=== PATIENT | female | born 1990 | race Caucasian/White ===

== ENCOUNTER → 2016-11-09 | Outpatient (CLI) | payer OTHER ==
[~2016-11-09] MED LIST: BENZ56AE TP; Ibuprofen PO; PEDI1TAB36 PO; RANI75TA30 PO
--- NOTE | 2016-11-09 12:44 | Diagnostic Imaging Report ---
PROCEDURE: US Gallbladder. TECHNIQUE: Multiple real-time grayscale images were obtained over the right upper quadrant in various projections. INDICATION: Epigastric pain. FINDINGS: Visualized portions of the pancreas appear unremarkable. The liver demonstrates homogeneous echotexture with no focal lesion. Hepatopetal flow in the portal vein is seen. The gallbladder demonstrates no stones or wall thickening. The CBD is obscured. No intrahepatic biliary dilatation is identified. The right kidney is 12.1 cm in length with no hydronephrosis or focal lesion. No fluid collection in the upper right abdomen. Sonographic Ruff sign is reportedly negative. IMPRESSION: Unremarkable exam. Dictated by: Dictated on workstation # [id number]
== END ==
LOC: RAD 09:23
PROVIDERS: ATTEND Family Medicine
DX: R10.13 Epigastric pain (principal)
CPT/HCPCS: 76705

== ENCOUNTER 2017-08-04 12:04 | Emergency (ER) | payer OTHER ==
[~2017-08-04] VITALS: Ht 157.5 cm; Wt 77.2 kg
--- OUTSIDE RECORDS SUMMARY | 2017-08-04 12:10 | XMS REPORT ---
Author STANTON Padilla [facility] eClinicalWorks Address Unknown Phone Unavailable Care Team Providers Care Piece Work Checker Name Role Phone STANTON JUAREZ CP Unavailable Allergies, Adverse Reactions, Alerts Substance Reaction Event Type Amoxicillin Info Not Available Drug Allergy Problems Problem Type Condition Code Onset Dates Condition Status Assessment Major depressive disorder with single episode, remission status unspecified F32.9 Active Assessment Anxiety, generalized F41.1 Active Problem Major depression single episode, 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 Active Problem Encounter for surveillance of contraceptive pills Z30.41 Active Problem Anxiety, generalized F41.1 Active Problem Allergic rhinitis, unspecified allergic rhinitis type J30.9 Active Problem Gastroesophageal reflux disease, esophagitis presence not specified K21.9 Active Problem Epigastric pain R10.13 Active Problem Major depressive disorder with single episode, remission status unspecified F32.9 Active Medications No Known Medications Procedures Procedure Coding System Code Date Psychotherapy, patient &/family, 30 minutes, established patient CPT-4 75162 Sep 21, 2016 Results No Known Results Summary Purpose [employer] Works[employer] Submission
--- OUTSIDE RECORDS SUMMARY | 2017-08-04 12:10 | XMS REPORT ---
Author Author NAKITA RUBIN Organization eClinicalWorks Address Unknown Phone Unavailable Care Team Providers Care Biochemist Name Role Phone NAKITA RUBIN CP Unavailable Allergies, Adverse Reactions, Alerts Substance Reaction Event Type Amoxicillin Info Not Available Drug Allergy Problems Problem Type Condition Code Onset Dates Condition Status Problem Gastroesophageal reflux disease, esophagitis presence not specified K21.9 Active Assessment Encounter for dental examination Z01.20 Active Problem Allergic rhinitis, unspecified allergic rhinitis type J30.9 Active Assessment Dental examination Z01.20 Active Medications No Known Medications Procedures Procedure Coding System Code Date RESIN COMPOS - 3 SURFACES POSTERIOR CPT-4 D2393 Oct 03, 2015 Vital Signs Date/Time: Oct 03, 2015 Blood Pressure Diastolic 80 mmHg Blood Pressure Systolic 116 mmHg Height 61 in Results No Known Results Summary Purpose eClinicalWorks Submission
--- OUTSIDE RECORDS SUMMARY | 2017-08-04 12:10 | XMS REPORT ---
Author YUDITH Álvarez [facility] eClinicalWorks Address Unknown Phone Unavailable Care Team Providers Care Theater Manager Name Role Phone YUDITH GARZA CP Unavailable Allergies, Adverse Reactions, Alerts Substance Reaction Event Type Amoxicillin Info Not Available Drug Allergy Problems Problem Type Condition Code Onset Dates Condition Status Assessment Upper respiratory tract infection, unspecified type J06.9 Active Problem Major depression single episode, 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 Active Problem Encounter for surveillance of contraceptive pills Z30.41 Active Problem Anxiety, generalized F41.1 Active Problem Allergic rhinitis, unspecified allergic rhinitis type J30.9 Active Problem Gastroesophageal reflux disease, esophagitis presence not specified K21.9 Active Problem Epigastric pain R10.13 Active Problem Major depressive disorder with single episode, remission status unspecified F32.9 Active Medications Medication Code System Code Instructions Start Date End Date Status Dosage Claritin [facility] [address]-38 10 MG Orally Once a day 1 tablet Promethazine-Codeine [facility] [address]-95 6.25-10 MG/5ML Orally every 4 hrs, prn cough Aug 25, 2016 1-2 tsp Procedures Procedure Coding System Code Date Office Visit, Est Pt., Level 2 CPT-4 84576 Aug 25, 2016 Vital Signs Date/Time: Aug 25, 2016 Cardiac Monitoring Heart Rate 80 bpm Weight 174 lbs Height 61 in BMI 32.87 Index Blood Pressure Diastolic 86 mmHg Blood Pressure Systolic 124 mmHg Results No Known Results Summary Purpose eClinicalWorks Submission
--- OUTSIDE RECORDS SUMMARY | 2017-08-04 12:10 | XMS REPORT ---
Author Author ANA PAULA NOAH Organization [facility] Address [address] [place] [address] Care Team Providers Care Parachute Inspector Name Role Phone VISHNU GOSSHANY Unavailable PROBLEMS Type Condition ICD9-CM Code [id number] Code Onset Dates Condition Status SNOMED Code Problem Gastroesophageal reflux disease, esophagitis presence not specified K21.9 Active 629574629 Problem Adjustment disorder with disturbance of emotion F43.29 Active 12582722 Problem BMI 32.0-32.9,adult Z68.32 Active 592968029 Problem Epigastric pain R10.13 Active 52796721 Problem Allergic rhinitis, unspecified allergic rhinitis type J30.9 Active 20394630 Problem Anxiety, generalized F41.1 Active 30891212 Problem Major depression single episode, 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 Active 79796706 ALLERGIES Unknown Allergies SOCIAL HISTORY No smoking Hx information available PLAN OF CARE Activity Details Follow Up Next avail repower counseling Reason: VITAL SIGNS Height 61 in 2016-10-08 Weight 175.0 lbs 2016-10-08 Temperature 98.8 degrees Fahrenheit 2016-10-08 Heart Rate 84 bpm 2016-10-08 Respiratory Rate 18 2016-10-08 BMI 33.06 kg/m2 2016-10-08 Blood pressure systolic 112 mmHg 2016-10-08 Blood pressure diastolic 78 mmHg 2016-10-08 MEDICATIONS Unknown Medications RESULTS Name Result Date Reference Range GLUCOSE, SERUM 2016-10-08 Glucose, Serum 83 65-99 LIPID PANEL 2016-10-08 Cholesterol, Total 245 100-199 Triglycerides 245 0-149 HDL Cholesterol 44 >39 VLDL Cholesterol Hugo 49 5-40 LDL Cholesterol Calc 152 0-99 Comment: PROCEDURES Procedure Date Ordered Related Diagnosis Body Site LIPID PANEL Oct 08, 2016 ASSAY, GLUCOSE, BLOOD QUANT Oct 08, 2016 No Charge Oct 08, 2016 IMMUNIZATIONS No Known Immunizations
--- OUTSIDE RECORDS SUMMARY | 2017-08-04 12:10 | XMS REPORT ---
Author Author NOAH GOSS Organization [facility] Address [address] [place] [address] Care Team Providers Care Packaging Assembler Name Role Phone NOAH GOSS Unavailable PROBLEMS Type Condition ICD9-CM Code [id number] Code Onset Dates Condition Status SNOMED Code Problem Allergic rhinitis, unspecified allergic rhinitis type J30.9 Active 21129385 Problem Gastroesophageal reflux disease, esophagitis presence not specified K21.9 Active 691477632 Problem Reflux gastritis K29.60 Active 44357564 Problem Adjustment disorder with disturbance of emotion F43.29 Active 39331967 Problem Major depression single episode, 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 Active 18479317 Problem Epigastric pain R10.13 Active 52708728 Problem BMI 32.0-32.9,adult Z68.32 Active 085414686 Problem Anxiety, generalized F41.1 Active 99586269 ALLERGIES Substance Reaction Event Type Date Status Amoxicillin Unknown Drug Allergy Oct, Active SOCIAL HISTORY No smoking Hx information available PLAN OF CARE Activity Details Follow Up 2 Weeks Reason:wart cryotherapy VITAL SIGNS Height 61 in 2016-11-19 Weight 175 lbs 2016-11-19 Temperature 98.0 degrees Fahrenheit 2016-11-19 Heart Rate 90 bpm 2016-11-19 Respiratory Rate 20 2016-11-19 BMI 33.06 kg/m2 2016-11-19 Blood pressure systolic 110 mmHg 2016-11-19 Blood pressure diastolic 64 mmHg 2016-11-19 MEDICATIONS Medication Instructions Dosage Frequency Start Date End Date Duration Status Ortho-Cyclen (28) 0.25-35 MG-MCG Orally Once a day 1 tablet 24h Apr, 28 day(s) Active Omeprazole 40 mg Orally Once a day 1 capsule 24h Mar, 30 day(s ) Active Claritin 10 MG Orally Once a day 1 tablet 24h Active RESULTS No Results PROCEDURES Procedure Date Ordered Related Diagnosis Body Site WART DESTRUCT 11-07 (CRYO) 2016-11-19 N/A DESTRUCT LESION, 1-14 Nov 19, 2016 IMMUNIZATIONS No Known Immunizations
--- OUTSIDE RECORDS SUMMARY | 2017-08-04 12:10 | XMS REPORT ---
Author STANTON Padilla [facility] eClinicalWorks Address Unknown Phone Unavailable Care Team Providers Care Solution Strategist Name Role Phone STANTON JUAREZ CP Unavailable Allergies, Adverse Reactions, Alerts Substance Reaction Event Type Amoxicillin Info Not Available Drug Allergy Problems Problem Type Condition Code Onset Dates Condition Status Problem Encounter for surveillance of contraceptive pills Z30.41 Active Problem Epigastric pain R10.13 Active Problem Major depression single episode, 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 Active Problem Gastroesophageal reflux disease, esophagitis presence not specified K21.9 Active Assessment Major depression single episode, 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 Active Problem Major depressive disorder with single episode, remission status unspecified F32.9 Active Problem Allergic rhinitis, unspecified allergic rhinitis type J30.9 Active Medications No Known Medications Procedures Procedure Coding System Code Date Psychotherapy, patient &/family, 30 minutes, established patient CPT-4 68982 Aug 11, 2016 Results No Known Results Summary Purpose [employer] Submission
--- OUTSIDE RECORDS SUMMARY | 2017-08-04 12:10 | XMS REPORT ---
Author Author NOAH GOSS Organization [facility] Address [address] [place] [address] Care Team Providers Care Review Consultant Name Role Phone NOAH GOSS Unavailable PROBLEMS Type Condition ICD9-CM Code NKR08-FP Code Onset Dates Condition Status SNOMED Code Problem Allergic rhinitis, unspecified allergic rhinitis type J30.9 Active 31805991 Problem Gastroesophageal reflux disease, esophagitis presence not specified K21.9 Active 474886854 Problem Reflux gastritis K29.60 Active 08204992 Problem Adjustment disorder with disturbance of emotion F43.29 Active 52655996 Problem Major depression single episode, 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 Active 96824529 Problem Epigastric pain R10.13 Active 53386317 Problem BMI 32.0-32.9,adult Z68.32 Active 182833549 Problem Anxiety, generalized F41.1 Active 47226996 ALLERGIES No Information SOCIAL HISTORY Never Assessed PLAN OF CARE VITAL SIGNS Height 61 in 2016-12-15 Weight 174.4 lbs 2016-12-15 BMI 32.95 kg/m2 2016-12-15 MEDICATIONS Unknown Medications RESULTS No Results PROCEDURES No Known procedures IMMUNIZATIONS No Known Immunizations MEDICAL (GENERAL) HISTORY Type Description Date Medical History Allergic Rhinitis Medical History Hospitalization History childbirth only
--- OUTSIDE RECORDS SUMMARY | 2017-08-04 12:10 | XMS REPORT ---
Author Author NOAH GOSS [facility] eClinicalWorks Address Unknown Phone Unavailable Care Team Providers Care Healthcare Architect Name Role Phone NOAH GOSS Unavailable Allergies No Known Allergies Problems Problem Type Condition Code Onset Dates Condition Status Problem Gastroesophageal reflux disease, esophagitis presence not specified K21.9 Active Problem Allergic rhinitis, unspecified allergic rhinitis type J30.9 Active Medications No Known Medications Results No Known Results Summary Purpose eClinicalWorks Submission
--- OUTSIDE RECORDS SUMMARY | 2017-08-04 12:10 | XMS REPORT ---
Author Author STANTON JUAREZ [facility] Address [address] [place] [address] Care Team Providers Care Online Trader Name Role Phone STANTON JUAREZ Unavailable PROBLEMS Type Condition ICD9-CM Code CWJ32-TV Code Onset Dates Condition Status SNOMED Code Problem Allergic rhinitis, unspecified allergic rhinitis type J30.9 Active 85968725 Problem Gastroesophageal reflux disease, esophagitis presence not specified K21.9 Active 810387822 Problem Reflux gastritis K29.60 Active 89595346 Problem Adjustment disorder with disturbance of emotion F43.29 Active 60853886 Problem Major depression single episode, 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 Active 46705757 Problem Epigastric pain R10.13 Active 03679516 Problem BMI 32.0-32.9,adult Z68.32 Active 909942925 Problem Anxiety, generalized F41.1 Active 83685038 ALLERGIES Substance Reaction Event Type Date Status Amoxicillin Unknown Drug Allergy Oct, Active SOCIAL HISTORY No smoking Hx information available PLAN OF CARE Activity Details Follow Up 2 Weeks Reason:depression, anxiety VITAL SIGNS MEDICATIONS Unknown Medications RESULTS No Results PROCEDURES Procedure Date Ordered Related Diagnosis Body Site Psychotherapy, patient &/family, 30 minutes, established patient Nov 02, 2016 IMMUNIZATIONS No Known Immunizations
--- OUTSIDE RECORDS SUMMARY | 2017-08-04 12:10 | XMS REPORT ---
Author STANTON Padilla [facility] eClinicalWorks Address Unknown Phone Unavailable Care Team Providers Care Film Masker Name Role Phone STANTON JUAREZ CP Unavailable Allergies No Known Allergies Problems Problem Type Condition Code Onset Dates Condition Status Assessment Major depressive disorder with single episode, remission status unspecified F32.9 Active Problem Gastroesophageal reflux disease with esophagitis K21.0 Active Problem Epigastric pain R10.13 Active Problem Encounter for surveillance of contraceptive pills Z30.41 Active Problem Allergic rhinitis, unspecified allergic rhinitis type J30.9 Active Problem Gastroesophageal reflux disease, esophagitis presence not specified K21.9 Active Problem Major depressive disorder with single episode, remission status unspecified F32.9 Active Problem Acute cystitis without hematuria N30.00 Active Medications No Known Medications Results No Known Results Summary Purpose eClinicalWorks Submission
--- OUTSIDE RECORDS SUMMARY | 2017-08-04 12:10 | XMS REPORT ---
Author STANTON Padilla [facility] eClinicalWorks Address Unknown Phone Unavailable Care Team Providers Care Confidential Secretary Name Role Phone STANTON JUAREZ CP Unavailable Allergies, Adverse Reactions, Alerts Substance Reaction Event Type Amoxicillin Info Not Available Drug Allergy Problems Problem Type Condition Code Onset Dates Condition Status Assessment Major depressive disorder with single episode, remission status unspecified F32.9 Active Assessment Anxiety, generalized F41.1 Active Assessment Dysthymic F34.1 Active Problem Gastroesophageal reflux disease with esophagitis [...] hematuria N30.00 Active Medications No Known Medications Procedures Procedure Coding System Code Date Psychotherapy, patient &/family, 30 minutes, established patient CPT-4 25005 Jun 19, 2016 Results No Known Results Summary Purpose eClinicalWorks Submission
--- OUTSIDE RECORDS SUMMARY | 2017-08-04 12:10 | XMS REPORT ---
Author Author STANTON JUAREZ [facility] Address [address] [place] [address] Care Team Providers Care Oleo Hasher And Renderer Name Role Phone STANTON JUAREZ Unavailable PROBLEMS Type Condition ICD9-CM Code [id number] Code Onset Dates Condition Status SNOMED Code Problem Gastroesophageal reflux disease, esophagitis presence not specified K21.9 Active 851971873 Assessment Anxiety, generalized F41.1 Sep, Active 97567440 Problem Anxiety, generalized F41.1 Active 98345738 Problem Major depression single episode, 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 Active 24133322 Problem Major depressive disorder with single episode, remission status unspecified F32.9 Active 68029967 Problem Allergic rhinitis, unspecified allergic rhinitis type J30.9 Active 73244533 Problem Encounter for surveillance of contraceptive pills Z30.41 Active 533920288 Problem Epigastric pain R10.13 Active 01654700 ALLERGIES Substance Reaction Event Type Date Status Amoxicillin Unknown Drug Allergy Sep, Active SOCIAL HISTORY No smoking Hx information available PLAN OF CARE VITAL SIGNS MEDICATIONS Unknown Medications RESULTS No Results PROCEDURES Procedure Date Ordered Related Diagnosis Body Site Psychotherapy, patient &/family, 30 minutes, established patient Sep 29, 2016 IMMUNIZATIONS No Known Immunizations
--- OUTSIDE RECORDS SUMMARY | 2017-08-04 12:11 | XMS REPORT ---
Author Author NOAH GOSS Organization [facility] Address [address] [place] [address] Care Team Providers Care Medical Billing Representative Name Role Phone ANA PAULAVISHNU PATTONHANY Unavailable PROBLEMS Type Condition ICD9-CM Code TOS93-SF Code Onset Dates Condition Status SNOMED Code Problem Allergic rhinitis, unspecified allergic rhinitis type J30.9 Active 72891804 Problem Gastroesophageal reflux disease, esophagitis presence not specified K21.9 Active 104891000 Problem Reflux gastritis K29.60 Active 89260101 Problem Adjustment disorder with disturbance of emotion F43.29 Active 28045316 Problem Major depression single episode, 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 Active 04257795 Problem Epigastric pain R10.13 Active 18850954 Problem BMI 32.0-32.9,adult Z68.32 Active 008345516 Problem Anxiety, generalized F41.1 Active 96943704 ALLERGIES Substance Reaction Event Type Date Status Amoxicillin Unknown Drug Allergy Nov, Active SOCIAL HISTORY Never Assessed PLAN OF CARE Activity Details Follow Up prn Reason: VITAL SIGNS Height 61 in 2016-12-22 Weight 174.1 lbs 2016-12-22 Temperature 98.0 degrees Fahrenheit 2016-12-22 Heart Rate 88 bpm 2016-12-22 Respiratory Rate 20 2016-12-22 BMI 32.89 kg/m2 2016-12-22 Blood pressure systolic 119 mmHg 2016-12-22 Blood pressure diastolic 82 mmHg 2016-12-22 MEDICATIONS Medication Instructions Dosage Frequency Start Date End Date Duration Status Claritin 10 MG Orally Once a day 1 tablet 24h Active RESULTS No Results PROCEDURES Procedure Date Ordered Result Body Site WART DESTRUCT -14 (CRYO) 2016-12-22 N/A DESTRUCT LESION, 1-14 Dec 22, 2016 IMMUNIZATIONS No Known Immunizations MEDICAL (GENERAL) HISTORY Type Description Date Medical History Allergic Rhinitis Medical History Hospitalization History childbirth only
--- OUTSIDE RECORDS SUMMARY | 2017-08-04 12:11 | XMS REPORT ---
Author Author STANTON JUAREZ [facility] Address [address] [place] [address] Care Team Providers Care Industrial Laborer Name Role Phone STANTON JUAREZ Unavailable PROBLEMS Type Condition ICD9-CM Code QXM60-CX Code Onset Dates Condition Status SNOMED Code Assessment Adjustment disorder with disturbance of emotion F43.29 Jun Active 17475225 Problem Encounter for surveillance of contraceptive pills Z30.41 Active 169638923 Problem Epigastric pain R10.13 Active 53201784 Problem Gastroesophageal reflux disease, esophagitis presence not specified K21.9 Active 369776577 Assessment Major depressive disorder with single episode, remission status unspecified F32.9 Jun, Active 00403872 Problem Major depressive disorder with single episode, remission status unspecified F32.9 Active 45409441 Problem Allergic rhinitis, unspecified allergic rhinitis type J30.9 Active 12330610 ALLERGIES Substance Reaction Event Type Date Status Amoxicillin Unknown Drug Allergy Jun, Active SOCIAL HISTORY No smoking Hx information available PLAN OF CARE VITAL SIGNS MEDICATIONS Unknown Medications RESULTS No Results PROCEDURES Procedure Date Ordered Related Diagnosis Body Site Psychotherapy, patient &/family, 30 minutes, established patient Jul 10, 2016 IMMUNIZATIONS No Known Immunizations
--- OUTSIDE RECORDS SUMMARY | 2017-08-04 12:11 | XMS REPORT ---
Author Author MANDA RUIZ Organization [facility] Address [address] [place] [address] Care Team Providers Care Peoplesoft Hcm Developer Name Role Phone MANDA RUIZ Unavailable PROBLEMS Type Condition ICD9-CM Code VUY36-FA Code Onset Dates Condition Status SNOMED Code Assessment Nasal congestion R09.81 Sep, Active 81022334 Problem Gastroesophageal reflux disease, esophagitis presence not specified K21.9 Active 994855441 Assessment Left ear pain H92.02 Sep, Active 8468545366533361 Problem Anxiety, generalized F41.1 Active 10688571 Problem Major depression single episode, 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 Active 75320092 Problem Major depressive disorder with single episode, remission status unspecified F32.9 Active 04425982 Problem Allergic rhinitis, unspecified allergic rhinitis type J30.9 Active 18085319 Problem Encounter for surveillance of contraceptive pills Z30.41 Active 333300753 Problem Epigastric pain R10.13 Active 76562561 ALLERGIES Substance Reaction Event Type Date Status Amoxicillin Unknown Drug Allergy Sep, Active SOCIAL HISTORY No smoking Hx information available PLAN OF CARE VITAL SIGNS Height 61 in 2016-10-06 Weight 179 lbs 2016-10-06 Heart Rate 80 bpm 2016-10-06 Respiratory Rate 16 2016-10-06 BMI 33.82 kg/m2 2016-10-06 Blood pressure systolic 118 mmHg 2016-10-06 Blood pressure diastolic 80 mmHg 2016-10-06 MEDICATIONS Medication Instructions Dosage Frequency Start Date End Date Duration Status Ortho-Cyclen (28) 0.25-35 MG-MCG Orally Once a day 1 tablet 24h 20 Apr, 2016 28 day(s) Active RESULTS No Results PROCEDURES Procedure Date Ordered Related Diagnosis Body Site Office Visit, Est Pt., Level 3 Oct 06, 2016 IMMUNIZATIONS No Known Immunizations
--- OUTSIDE RECORDS SUMMARY | 2017-08-04 12:11 | XMS REPORT ---
Author STANTON Padilla [facility] eClinicalWorks Address Unknown Phone Unavailable Care Team Providers Care Civil Division Deputy Sheriff Name Role Phone STANTON JUAREZ CP Unavailable Allergies No Known Allergies Problems Problem Type Condition Code Onset Dates Condition Status Assessment Major depression single episode, 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 Active Problem Major depression single episode, in [...] patient &/family, 30 minutes, established patient CPT-4 12671 Sep 10, 2016 Results No Known Results Summary Purpose eClinicalWorks Submission
--- OUTSIDE RECORDS SUMMARY | 2017-08-04 12:11 | XMS REPORT ---
Author STANTON Padilla [facility] eClinicalWorks Address Unknown Phone Unavailable Care Team Providers Care Industrial Commercial Groundskeeper Name Role Phone STANTON JUAREZ CP Unavailable Allergies, Adverse Reactions, Alerts Substance Reaction Event Type Amoxicillin Info Not Available Drug Allergy Problems Problem Type Condition Code Onset Dates Condition Status Problem Epigastric pain R10.13 Active Problem Major depressive disorder with single episode, remission status unspecified F32.9 Active Problem Encounter for surveillance of contraceptive pills Z30.41 Active Assessment Major depressive disorder with single episode, remission status unspecified F32.9 Active Problem Allergic rhinitis, unspecified allergic rhinitis type J30.9 Active Problem Gastroesophageal reflux disease, esophagitis presence not specified K21.9 Active Medications No Known Medications Procedures Procedure Coding System Code Date Psychotherapy, patient &/family, 30 minutes, established patient CPT-4 32552 Jul 28, 2016 Results No Known Results Summary Purpose eClinicalWorks Submission
--- OUTSIDE RECORDS SUMMARY | 2017-08-04 12:11 | XMS REPORT ---
Author BRENDA Guzman [facility] eClinicalWorks Address Unknown Phone Unavailable Care Team Providers Care Sheet Metal Shop Foreman Name Role Phone BRENDA DOTSON CP Unavailable Allergies, Adverse Reactions, Alerts Substance Reaction Event Type Amoxicillin Info Not Available Drug Allergy Problems Problem Type Condition Code Onset Dates Condition Status Assessment Epigastric pain R10.13 Active Assessment Encounter for surveillance of contraceptive pills Z30.41 Active Assessment Gastroesophageal reflux disease with esophagitis K21.0 Active Assessment Acute cystitis without hematuria N30.00 Active Assessment Major depressive disorder with single [...] Acute cystitis without hematuria N30.00 Active Medications Medication Code System Code Instructions Start Date End Date Status Dosage Claritin [facility] [address]-77 10 MG Orally Once a day 1 tablet Macrobid [facility] [address]-35 100 MG Orally every 12 hrs May 13, 2016 May 20, 2016 1 capsule with food Omeprazole [facility] [address]-13 40 mg Orally Once a day March 31, 2016 1 capsule Ortho-Cyclen (28) [facility] [address]-78 0.25-35 MG-MCG Orally Once a day May 13, 2016 1 tablet Procedures Procedure Coding System Code Date COMPLETE CBC W/AUTO DIFF WBC CPT-4 13637 May 13, 2016 COMPREHEN METABOLIC PANEL CPT-4 15437 May 13, 2016 URINE TEST CPT-4 64751 May 13, 2016 URINALYSIS, AUTO, W/O SCOPE CPT-4 19723 May 13, 2016 IMMUNOASSAY,INFECTIOUS AGENT CPT-4 81446 May 13, 2016 VENIPUNCT, ROUTINE* CPT-4 09075 May 13, 2016 Office Visit, Est Pt., Level 4 CPT-4 05420 May 13, 2016 Vital Signs Date/Time: May 13, 2016 Cardiac Monitoring Heart Rate 86 bpm Weight 169.4 lbs Height 61 in Blood Pressure Diastolic 76 mmHg Blood Pressure Systolic 110 mmHg Results No Known Results Summary Purpose eClinicalWorks Submission
--- OUTSIDE RECORDS SUMMARY | 2017-08-04 12:11 | XMS REPORT ---
Author Author STANTON JUAREZ [facility] Address [address] [place] [address] Care Team Providers Care Ammonia Distiller Name Role Phone STANTON JUAREZ Unavailable PROBLEMS Type Condition ICD9-CM Code [id number] Code Onset Dates Condition Status SNOMED Code Problem Allergic rhinitis, unspecified allergic rhinitis type J30.9 Active 01660002 Problem Gastroesophageal reflux disease, esophagitis presence not specified K21.9 Active 273109775 Problem Reflux gastritis K29.60 Active 89607750 Problem Adjustment disorder with disturbance of emotion F43.29 Active 23857247 Problem Major depression single episode, 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 Active 40492955 Problem Epigastric pain R10.13 Active 36716367 Problem BMI 32.0-32.9,adult Z68.32 Active 115509466 Problem Anxiety, generalized F41.1 Active 51823480 ALLERGIES Substance Reaction Event Type Date Status Amoxicillin Unknown Drug Allergy Oct, Active SOCIAL HISTORY No smoking Hx information available PLAN OF CARE Activity Details Follow Up 2 Weeks Reason:Depression VITAL SIGNS MEDICATIONS Unknown Medications RESULTS No Results PROCEDURES Procedure Date Ordered Related Diagnosis Body Site Psychotherapy, patient &/family, 30 minutes, established patient Nov 16, 2016 IMMUNIZATIONS No Known Immunizations
--- OUTSIDE RECORDS SUMMARY | 2017-08-04 12:11 | XMS REPORT ---
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 Assessment Dysuria 788.1 Active Medications Medication Code System Code Instructions Start Date End Date Status Dosage Bactrim DS [facility] [address]-17 800-160 MG Orally 2 times a day Jul 08, 2015 Jul 13, 2015 1 tablet AZO Cranberry [facility] 554[address]-65948 250-30 MG Orally not defined Procedures Procedure Coding System Code Date Office Visit, Est Pt., Level 3 CPT-4 69228 Jul 08, 2015 Vital Signs Date/Time: Jul 08, 2015 Temperature 97.4 F Weight 176.1 lbs Height 61 in BMI 33.27 Index Blood Pressure Diastolic 80 mmHg Blood Pressure Systolic 122 mmHg Cardiac Monitoring Heart Rate 84 bpm Results No Known Results Summary Purpose eClinicalWorks Submission
--- OUTSIDE RECORDS SUMMARY | 2017-08-04 12:11 | XMS REPORT ---
Author Author NOAH GOSS Organization [facility] Address [address] [place] [address] Care Team Providers Care Button Reclaimer Name Role Phone NOAH GOSS Unavailable PROBLEMS Type Condition ICD9-CM Code [id number] Code Onset Dates Condition Status SNOMED Code Assessment Other viral warts B07.8 Jun, Active 70903468 Problem Encounter for surveillance of contraceptive pills Z30.41 Active 533822873 Problem Epigastric pain R10.13 Active 64959808 Problem Gastroesophageal reflux disease, esophagitis presence not specified K21.9 Active 154899056 Assessment Dermatofibroma of buttock D23.5 Jun, Active 33170367 Problem Major depressive disorder with single episode, remission status unspecified F32.9 Active 13586966 Problem Allergic rhinitis, unspecified allergic rhinitis type J30.9 Active 50528090 ALLERGIES Substance Reaction Event Type Date Status Amoxicillin Unknown Drug Allergy Jun, Active SOCIAL HISTORY No smoking Hx information available PLAN OF CARE VITAL SIGNS Height 61 in 2016-07-02 Weight 171.2 lbs 2016-07-02 Heart Rate 78 bpm 2016-07-02 Respiratory Rate 20 2016-07-02 BMI 32.34 kg/m2 2016-07-02 Blood pressure systolic 120 mmHg 2016-07-02 Blood pressure diastolic 76 mmHg 2016-07-02 MEDICATIONS Medication Instructions Dosage Frequency Start Date End Date Duration Status Naproxen 500 MG Orally every 12 hrs 1 tablet as needed 12h 07 Mar, 2016 Active Ortho-Cyclen (28) 0.25-35 MG-MCG Orally Once a day 1 tablet 24h 20 Apr, 2016 28 day(s) Active Claritin 10 MG Orally Once a day 1 tablet 24h Active Ortho-Cyclen (28) 0.25-35 MG-MCG Orally Once a day 1 tablet 24h 13 Jul, 2015 28 day(s) Active Doxycycline Hyclate 100 MG Orally Twice a day 1 tablet 12h Jun, Jun, 07 days Active Omeprazole 40 mg Orally Once a day 1 capsule 24h Mar, 30 day(s ) Active AZO Cranberry 250-30 MG Active Zantac 150 mg 1 tablet by Oral route 2 times per day PRN for heartburn May, Active Hydrocortisone 0.5 % Externally Twice a day 1 application to affected area 12h Active RESULTS Name Result Date Reference Range PDF Report 2016-07-02 PDF Report1 [facility] REPORT 2016-07-02 . . . . Comment: . . . . PROCEDURES Procedure Date Ordered Related Diagnosis Body Site BIOPSY OF SKIN LESION Jul 02, 2016 CRYOTHERAPY OF SKIN Jul 02, 2016 IMMUNIZATIONS No Known Immunizations
--- OUTSIDE RECORDS SUMMARY | 2017-08-04 12:11 | XMS REPORT ---
Author Author STANTON JUAREZ [facility] Address [address] [place] [address] Care Team Providers Care Log Buyer Name Role Phone STANTON JUAREZ Unavailable PROBLEMS Type Condition ICD9-CM Code [id number] Code Onset Dates Condition Status SNOMED Code Problem Gastroesophageal reflux disease, esophagitis presence not specified K21.9 Active 161266431 Problem Adjustment disorder with disturbance of emotion F43.29 Active 49230858 Problem BMI 32.0-32.9,adult Z68.32 Active 023169027 Problem Epigastric pain R10.13 Active 85002408 Problem Allergic rhinitis, unspecified allergic rhinitis type J30.9 Active 00276284 Problem Anxiety, generalized F41.1 Active 46864098 Problem Major depression single episode, 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 Active 52833844 ALLERGIES Unknown Allergies SOCIAL HISTORY No smoking Hx information available PLAN OF CARE Activity Details Follow Up 2 Weeks Reason:Depression, wt. loss VITAL SIGNS MEDICATIONS Unknown Medications RESULTS No Results PROCEDURES Procedure Date Ordered Related Diagnosis Body Site Psychotherapy, patient &/family, 45 minutes, established patient Oct 20, 2016 IMMUNIZATIONS No Known Immunizations
--- OUTSIDE RECORDS SUMMARY | 2017-08-04 12:11 | XMS REPORT ---
Author Author NOAH GOSS Organization [facility] Address [address] [place] [address] Care Team Providers Care Small Lot Operator Name Role Phone NOAH GOSS Unavailable PROBLEMS Type Condition ICD9-CM Code [id number] Code Onset Dates Condition Status SNOMED Code Problem Allergic rhinitis, unspecified allergic rhinitis type J30.9 Active 64273224 Problem Gastroesophageal reflux disease, esophagitis presence not specified K21.9 Active 152919169 Problem Reflux gastritis K29.60 Active 82319342 Problem Adjustment disorder with disturbance of emotion F43.29 Active 85000005 Problem Major depression single episode, 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 Active 19396199 Problem Epigastric pain R10.13 Active 96189118 Problem BMI 32.0-32.9,adult Z68.32 Active 961681934 Problem Anxiety, generalized F41.1 Active 58297571 ALLERGIES No Information SOCIAL HISTORY Never Assessed PLAN OF CARE VITAL SIGNS Height 61 in 2017-01-11 Weight 174.7 lbs 2017-01-11 BMI 33.01 kg/m2 2017-01-11 MEDICATIONS Unknown Medications RESULTS No Results PROCEDURES No Known procedures IMMUNIZATIONS No Known Immunizations MEDICAL (GENERAL) HISTORY Type Description Date Medical History Allergic Rhinitis Medical History Hospitalization History childbirth only
--- OUTSIDE RECORDS SUMMARY | 2017-08-04 12:11 | XMS REPORT ---
Author Author NOAH GOSS Organization [facility] Address [address] [place] [address] Care Team Providers Care Compressor Service Technician Name Role Phone NOAH GOSS Unavailable PROBLEMS Type Condition ICD9-CM Code [id number] Code Onset Dates Condition Status SNOMED Code Problem Allergic rhinitis, unspecified allergic rhinitis type J30.9 Active 52446617 Problem Gastroesophageal reflux disease, esophagitis presence not specified K21.9 Active 333016414 Problem Reflux gastritis K29.60 Active 40400812 Problem Adjustment disorder with disturbance of emotion F43.29 Active 32216398 Problem Major depression single episode, 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 Active 25202853 Problem Epigastric pain R10.13 Active 41959955 Problem BMI 32.0-32.9,adult Z68.32 Active 380322640 Problem Anxiety, generalized F41.1 Active 26651998 ALLERGIES No Information SOCIAL HISTORY Never Assessed PLAN OF CARE VITAL SIGNS Height 61 in 2016-12-28 Weight 175 lbs 2016-12-28 BMI 33.06 kg/m2 2016-12-28 MEDICATIONS Unknown Medications RESULTS No Results PROCEDURES No Known procedures IMMUNIZATIONS No Known Immunizations MEDICAL (GENERAL) HISTORY Type Description Date Medical History Allergic Rhinitis Medical History Hospitalization History childbirth only
--- OUTSIDE RECORDS SUMMARY | 2017-08-04 12:11 | XMS REPORT ---
Author Author STANTON JUAREZ [facility] Address [address] [place] [address] Care Team Providers Care Pick Up Driver Name Role Phone STANTON JUAREZ Unavailable PROBLEMS Type Condition ICD9-CM Code [id number] Code Onset Dates Condition Status SNOMED Code Problem Allergic rhinitis, unspecified allergic rhinitis type J30.9 Active 51497391 Problem Gastroesophageal reflux disease, esophagitis presence not specified K21.9 Active 198685228 Problem Reflux gastritis K29.60 Active 12404315 Problem Adjustment disorder with disturbance of emotion F43.29 Active 46424325 Problem Major depression single episode, 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 Active 24903402 Problem Epigastric pain R10.13 Active 80854157 Problem BMI 32.0-32.9,adult Z68.32 Active 925696642 Problem Anxiety, generalized F41.1 Active 06317936 ALLERGIES No Information SOCIAL HISTORY Never Assessed PLAN OF CARE Activity Details Follow Up 2 Weeks Reason:Depression VITAL SIGNS MEDICATIONS Unknown Medications RESULTS No Results PROCEDURES Procedure Date Ordered Result Body Site Psychotherapy, patient &/family, 30 minutes, established patient Dec 14, 2016 IMMUNIZATIONS No Known Immunizations MEDICAL (GENERAL) HISTORY Type Description Date Medical History Allergic Rhinitis Medical History Hospitalization History childbirth only
--- OUTSIDE RECORDS SUMMARY | 2017-08-04 12:11 | XMS REPORT ---
Author Author STANTON JUAREZ [facility] Address [address] [place] [address] Care Team Providers Care Pocket Stitcher Name Role Phone STANTON JUAREZ Unavailable PROBLEMS Type Condition ICD9-CM Code [id number] Code Onset Dates Condition Status SNOMED Code Problem Gastroesophageal reflux disease, esophagitis presence not specified K21.9 Active 008511543 Problem Adjustment disorder with disturbance of emotion F43.29 Active 88356384 Problem BMI 32.0-32.9,adult Z68.32 Active 663935792 Problem Epigastric pain R10.13 Active 14918698 Problem Allergic rhinitis, unspecified allergic rhinitis type J30.9 Active 84811782 Problem Anxiety, generalized F41.1 Active 91749713 Problem Major depression single episode, 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 Active 49262926 ALLERGIES Substance Reaction Event Type Date Status Amoxicillin Unknown Drug Allergy Oct, Active SOCIAL HISTORY No smoking Hx information available PLAN OF CARE Activity Details Follow Up 1 Week Reason:anxiety, depression VITAL SIGNS MEDICATIONS Unknown Medications RESULTS No Results PROCEDURES Procedure Date Ordered Related Diagnosis Body Site Psychotherapy, patient &/family, 30 minutes, established patient Oct 27, 2016 IMMUNIZATIONS No Known Immunizations
--- OUTSIDE RECORDS SUMMARY | 2017-08-04 12:11 | XMS REPORT ---
Author STANTON Padilla [facility] eClinicalWorks Address Unknown Phone Unavailable Care Team Providers Care Mapping Pilot Name Role Phone STANTON JUAREZ CP Unavailable Allergies, Adverse Reactions, Alerts Substance Reaction Event Type Amoxicillin Info Not Available Drug Allergy Problems Problem Type Condition Code Onset Dates Condition Status Assessment Major depressive disorder with single episode, remission status unspecified F32.9 Active Assessment Anxiety, generalized F41.1 Active Problem Gastroesophageal reflux disease with esophagitis [...] Coding System Code Date Psychotherapy, patient &/family, 45 minutes, established patient CPT-4 72893 May 22, 2016 Results No Known Results Summary Purpose [employer] Submission
--- OUTSIDE RECORDS SUMMARY | 2017-08-04 12:11 | XMS REPORT ---
Author Author NOAH GOSS Organization [facility] Address [address] [place] [address] Care Team Providers Care Baseball Player Name Role Phone NOAH GOSS Unavailable PROBLEMS Type Condition ICD9-CM Code [id number] Code Onset Dates Condition Status SNOMED Code Problem Gastroesophageal reflux disease, esophagitis presence not specified K21.9 Active 694149712 Problem Adjustment disorder with disturbance of emotion F43.29 Active 49447863 Problem BMI 32.0-32.9,adult Z68.32 Active 932459326 Problem Epigastric pain R10.13 Active 05331239 Problem Allergic rhinitis, unspecified allergic rhinitis type J30.9 Active 89189041 Problem Anxiety, generalized F41.1 Active 59311614 Problem Major depression single episode, 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 Active 21791250 ALLERGIES Unknown Allergies SOCIAL HISTORY No smoking Hx information available PLAN OF CARE VITAL SIGNS MEDICATIONS Unknown Medications RESULTS No Results PROCEDURES No Known procedures IMMUNIZATIONS No Known Immunizations
--- OUTSIDE RECORDS SUMMARY | 2017-08-04 12:11 | XMS REPORT ---
Author STANTON Padilla [facility] eClinicalWorks Address Unknown Phone Unavailable Care Team Providers Care Heel Stainer Name Role Phone STANTON JUAREZ CP Unavailable [...] patient &/family, 30 minutes, established patient CPT-4 92656 Jun 05, 2016 Results No Known Results Summary Purpose [employer] Submission
--- OUTSIDE RECORDS SUMMARY | 2017-08-04 12:12 | XMS REPORT ---
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
--- OUTSIDE RECORDS SUMMARY | 2017-08-04 12:12 | XMS REPORT ---
Author Author STANTON JUAREZ [facility] Address [address] [place] [address] Care Team Providers Care Storage Facility Rental Clerk Name Role Phone STANTON JUAREZ Unavailable PROBLEMS Type Condition ICD9-CM Code AZR25-NQ Code Onset Dates Condition Status SNOMED Code Problem Encounter for surveillance of contraceptive pills Z30.41 Active 342447029 Problem Epigastric pain R10.13 Active 83406780 Problem Gastroesophageal reflux disease, esophagitis presence not specified K21.9 Active 894910000 Assessment Major depressive disorder with single episode, remission status unspecified F32.9 Jun, Active 93571844 Problem Major depressive disorder with single episode, remission status unspecified F32.9 Active 12628129 Problem Allergic rhinitis, unspecified allergic rhinitis type J30.9 Active 06333214 ALLERGIES Substance Reaction Event Type Date Status Amoxicillin Unknown Drug Allergy Jun, Active SOCIAL HISTORY No smoking Hx information available PLAN OF CARE VITAL SIGNS MEDICATIONS Unknown Medications RESULTS No Results PROCEDURES Procedure Date Ordered Related Diagnosis Body Site Psychotherapy, patient &/family, 30 minutes, established patient Jul 03, 2016 IMMUNIZATIONS No Known Immunizations
--- OUTSIDE RECORDS SUMMARY | 2017-08-04 12:12 | XMS REPORT ---
Author Author AAN PAULA NOAH Organization [facility] Address [address] [place] [address] Care Team Providers Care Esol Teacher Name Role Phone VISHNU GOSSHANY Unavailable PROBLEMS Type Condition ICD9-CM Code [id number] Code Onset Dates Condition Status SNOMED Code Problem Encounter for surveillance of contraceptive pills Z30.41 Active 029849609 Problem Epigastric pain R10.13 Active 45829267 Problem Gastroesophageal reflux disease, esophagitis presence not specified K21.9 Active 239018685 Assessment Well woman exam (no gynecological exam) Z00.00 14 Jun, 2016 Active 128505379 Problem Major depressive disorder with single episode, remission status unspecified F32.9 Active 09124958 Problem Allergic rhinitis, unspecified allergic rhinitis type J30.9 Active 85340608 ALLERGIES Substance Reaction Event Type Date Status Amoxicillin Unknown Drug Allergy 14 Jun, 2016 Active SOCIAL HISTORY No smoking Hx information available PLAN OF CARE VITAL SIGNS Height 61 in 2016-07-08 Weight 171.8 lbs 2016-07-08 Heart Rate 77 bpm 2016-07-08 Respiratory Rate 18 2016-07-08 BMI 32.46 kg/m2 2016-07-08 Blood pressure systolic 124 mmHg 2016-07-08 Blood pressure diastolic 83 mmHg 2016-07-08 MEDICATIONS Medication Instructions Dosage Frequency Start Date End Date Duration Status Ortho-Cyclen (28) 0.25-35 MG-MCG Orally Once a day 1 tablet 24h 13 Jul, 2015 28 day(s) Active RESULTS Name Result Date Reference Range TEST, URINE (IN HOUSE) 2016-07-08 RESULTS Negative Lot # [id number] Control + Exp date 12/2017 PROCEDURES Procedure Date Ordered Related Diagnosis Body Site URINE TEST Jul 08, 2016 Preventive Care Est Pt. Age 18-39 Jul 08, 2016 IMMUNIZATIONS No Known Immunizations
--- OUTSIDE RECORDS SUMMARY | 2017-08-04 12:12 | XMS REPORT ---
Author Author STANTON JUAREZ [facility] Address [address] [place] [address] Care Team Providers Care Diplomatic Interpreter Name Role Phone STANTON JUAREZ Unavailable PROBLEMS Type Condition ICD9-CM Code LAB34-GY Code Onset Dates Condition Status SNOMED Code Problem Allergic rhinitis, unspecified allergic rhinitis type J30.9 Active 07980674 Problem Gastroesophageal reflux disease, esophagitis presence not specified K21.9 Active 968678386 Problem Reflux gastritis K29.60 Active 46237952 Problem Adjustment disorder with disturbance of emotion F43.29 Active 74678804 Problem Major depression single episode, 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 Active 04143685 Problem Epigastric pain R10.13 Active 71262437 Problem BMI 32.0-32.9,adult Z68.32 Active 730900846 Problem Anxiety, generalized F41.1 Active 95166266 ALLERGIES No Information SOCIAL HISTORY Never Assessed PLAN OF CARE Activity Details Follow Up 2 Weeks Reason:Adjustment disorder VITAL SIGNS MEDICATIONS Unknown Medications RESULTS No Results PROCEDURES Procedure Date Ordered Result Body Site Psychotherapy, patient &/family, 30 minutes, established patient December 28, 2016 IMMUNIZATIONS No Known Immunizations MEDICAL (GENERAL) HISTORY Type Description Date Medical History Allergic Rhinitis Medical History Hospitalization History childbirth only
--- OUTSIDE RECORDS SUMMARY | 2017-08-04 12:12 | XMS REPORT ---
Author Author NOAH GOSS Organization [facility] Address [address] [place] [address] Care Team Providers Care Tassel Maker Name Role Phone NOAH GOSS Unavailable PROBLEMS Type Condition ICD9-CM Code ZJT99-LQ Code Onset Dates Condition Status SNOMED Code Problem Gastroesophageal reflux disease, esophagitis presence not specified K21.9 Active 202051599 Problem Adjustment disorder with disturbance of emotion F43.29 Active 67123032 Problem BMI 32.0-32.9,adult Z68.32 Active 001005139 Problem Epigastric pain R10.13 Active 82965664 Problem Allergic rhinitis, unspecified allergic rhinitis type J30.9 Active 56737875 Problem Anxiety, generalized F41.1 Active 19937324 Problem Major depression single episode, 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 Active 22918676 ALLERGIES Unknown Allergies SOCIAL HISTORY No smoking Hx information available PLAN OF CARE VITAL SIGNS Height 61 in 2016-10-13 Weight 175.5 lbs 2016-10-13 BMI 33.16 kg/m2 2016-10-13 MEDICATIONS Unknown Medications RESULTS No Results PROCEDURES No Known procedures IMMUNIZATIONS No Known Immunizations
--- OUTSIDE RECORDS SUMMARY | 2017-08-04 12:12 | XMS REPORT ---
Author Author STANTON JUAREZ [facility] Address [address] [place] [address] Care Team Providers Care Packing Shed Supervisor Name Role Phone STANTON JUAREZ Unavailable PROBLEMS Type Condition ICD9-CM Code YER53-ZN Code Onset Dates Condition Status SNOMED Code Problem Gastroesophageal reflux disease, esophagitis presence not specified K21.9 Active 454615625 Assessment Major depressive disorder with single episode, remission status unspecified F32.9 Sep, Active 46754960 Problem Anxiety, generalized F41.1 Active 82998955 Problem Major depression single episode, 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 Active 17319701 Problem Major depressive disorder with single episode, remission status unspecified F32.9 Active 22881639 Problem Allergic rhinitis, unspecified allergic rhinitis type J30.9 Active 19728029 Problem Encounter for surveillance of contraceptive pills Z30.41 Active 123203125 Problem Epigastric pain R10.13 Active 86691742 ALLERGIES Substance Reaction Event Type Date Status Amoxicillin Unknown Drug Allergy Sep, Active SOCIAL HISTORY No smoking Hx information available PLAN OF CARE VITAL SIGNS MEDICATIONS Unknown Medications RESULTS No Results PROCEDURES Procedure Date Ordered Related Diagnosis Body Site Psychotherapy, patient &/family, 30 minutes, established patient Oct 06, 2016 IMMUNIZATIONS No Known Immunizations
--- OUTSIDE RECORDS SUMMARY | 2017-08-04 12:12 | XMS REPORT ---
Author Author NOAH GOSS Organization [facility] Address [address] [place] [address] Care Team Providers Care Mobile Practice Lead Name Role Phone NOAH GOSS Unavailable PROBLEMS Type Condition ICD9-CM Code [id number] Code Onset Dates Condition Status SNOMED Code Problem Gastroesophageal reflux disease, esophagitis presence not specified K21.9 Active 339260856 Problem Adjustment disorder with disturbance of emotion F43.29 Active 52700473 Problem BMI 32.0-32.9,adult Z68.32 Active 752700557 Problem Epigastric pain R10.13 Active 28709687 Problem Allergic rhinitis, unspecified allergic rhinitis type J30.9 Active 44969728 Problem Anxiety, generalized F41.1 Active 11601991 Problem Major depression single episode, 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 Active 11938785 ALLERGIES Unknown Allergies SOCIAL HISTORY No smoking Hx information available PLAN OF CARE VITAL SIGNS Height 61 in 2016-10-20 Weight 176.6 lbs 2016-10-20 BMI 33.36 kg/m2 2016-10-20 MEDICATIONS Unknown Medications RESULTS No Results PROCEDURES No Known procedures IMMUNIZATIONS No Known Immunizations
--- OUTSIDE RECORDS SUMMARY | 2017-08-04 12:12 | XMS REPORT ---
Author Author NOAH GOSS Organization [facility] Address [address] [place] [address] Care Team Providers Care Lacquer Sizer Name Role Phone NOAH GOSS Unavailable PROBLEMS Type Condition ICD9-CM Code [id number] Code Onset Dates Condition Status SNOMED Code Problem Gastroesophageal reflux disease, esophagitis presence not specified K21.9 Active 038570340 Problem Adjustment disorder with disturbance of emotion F43.29 Active 10828997 Problem BMI 32.0-32.9,adult Z68.32 Active 914580697 Problem Epigastric pain R10.13 Active 61507848 Problem Allergic rhinitis, unspecified allergic rhinitis type J30.9 Active 62463444 Problem Anxiety, generalized F41.1 Active 18157625 Problem Major depression single episode, 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 Active 62953153 ALLERGIES Unknown Allergies SOCIAL HISTORY No smoking Hx information available PLAN OF CARE VITAL SIGNS Height 61 in 2016-11-02 Weight 173.1 lbs 2016-11-02 BMI 32.70 kg/m2 2016-11-02 MEDICATIONS Unknown Medications RESULTS No Results PROCEDURES No Known procedures IMMUNIZATIONS No Known Immunizations
--- OUTSIDE RECORDS SUMMARY | 2017-08-04 12:12 | XMS REPORT ---
Author Author NOAH GOSS Organization [employer] Address Unknown Phone Unavailable Care Team Providers Care Laborer [employer] Name Role Phone NOAH GOSS CP Unavailable Allergies, Adverse Reactions, Alerts Substance Reaction Event Type Amoxicillin Info Not Available Drug Allergy Problems Problem Type Condition Code Onset Dates Condition Status Problem Gastroesophageal reflux disease, esophagitis presence not specified K21.9 Active Assessment Encounter for initial prescription of contraceptive pills Z30.011 Active Problem Allergic rhinitis, unspecified allergic rhinitis type J30.9 Active Assessment Gastroesophageal reflux disease, esophagitis presence not specified K21.9 Active Assessment Right upper quadrant abdominal pain R10.11 Active Medications Medication Code System Code Instructions Start Date End Date Status Dosage Ortho-Cyclen (28) [facility] [id number] 0.25-35 MG-MCG Orally Once a day Jul 1 tablet Procedures Procedure Coding System Code Date Office Visit, Est Pt., Level 3 CPT-4 49613 Aug 06, 2015 URINE TEST CPT-4 17423 Aug 06, 2015 Vital Signs Date/Time: Aug 06, 2015 Temperature 97.9 F Weight 173.5 lbs Height 61 in BMI 32.78 Index Blood Pressure Diastolic 70 mmHg Blood Pressure Systolic 112 mmHg Cardiac Monitoring Heart Rate 88 bpm Results Name Result Date Reference Range Unit Abnormality Flag TEST, URINE (IN HOUSE) Summary Purpose [employer] Submission
--- OUTSIDE RECORDS SUMMARY | 2017-08-04 12:12 | XMS REPORT ---
Author Author STANTON JUAREZ [facility] Address [address] [place] [address] Care Team Providers Care Log Sorter Name Role Phone STANTON JUAREZ Unavailable PROBLEMS Type Condition ICD9-CM Code [id number] Code Onset Dates Condition Status SNOMED Code Problem Allergic rhinitis, unspecified allergic rhinitis type J30.9 Active 47729948 Problem Gastroesophageal reflux disease, esophagitis presence not specified K21.9 Active 761972025 Problem Reflux gastritis K29.60 Active 35043794 Problem Adjustment disorder with disturbance of emotion F43.29 Active 02330220 Problem Major depression single episode, 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 Active 70305659 Problem Epigastric pain R10.13 Active 04107603 Problem BMI 32.0-32.9,adult Z68.32 Active 639230155 Problem Anxiety, generalized F41.1 Active 74058563 ALLERGIES No Information SOCIAL HISTORY Never Assessed PLAN OF CARE Activity Details Follow Up 2 Weeks Reason:Depression, weight loss VITAL SIGNS MEDICATIONS Unknown Medications RESULTS No Results PROCEDURES Procedure Date Ordered Result Body Site Psychotherapy, patient &/family, 30 minutes, established patient Nov 30, 2016 IMMUNIZATIONS No Known Immunizations MEDICAL (GENERAL) HISTORY Type Description Date Medical History Allergic Rhinitis Medical History Hospitalization History childbirth only
--- OUTSIDE RECORDS SUMMARY | 2017-08-04 12:12 | XMS REPORT ---
Author Author NOAH GOSS Organization [facility] Address [address] [place] [address] Care Team Providers Care Military Science Instructor Name Role Phone NOAH GOSS Unavailable PROBLEMS Type Condition ICD9-CM Code [id number] Code Onset Dates Condition Status SNOMED Code Problem Gastroesophageal reflux disease, esophagitis presence not specified K21.9 Active 218138735 Problem Adjustment disorder with disturbance of emotion F43.29 Active 29638113 Problem BMI 32.0-32.9,adult Z68.32 Active 198159203 Problem Epigastric pain R10.13 Active 75279816 Problem Allergic rhinitis, unspecified allergic rhinitis type J30.9 Active 16789104 Problem Anxiety, generalized F41.1 Active 25143324 Problem Major depression single episode, 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 Active 36170183 ALLERGIES Substance Reaction Event Type Date Status Amoxicillin Unknown Drug Allergy Sep, Active SOCIAL HISTORY No smoking Hx information available PLAN OF CARE Activity Details Follow Up 2 Weeks Reason:wart treatment VITAL SIGNS Height 61 in 2016-10-20 Weight 178.4 lbs 2016-10-20 Temperature 98.3 degrees Fahrenheit 2016-10-20 Heart Rate 92 bpm 2016-10-20 Respiratory Rate 18 2016-10-20 BMI 33.70 kg/m2 2016-10-20 Blood pressure systolic 124 mmHg 2016-10-20 Blood pressure diastolic 70 mmHg 2016-10-20 MEDICATIONS Unknown Medications RESULTS No Results PROCEDURES Procedure Date Ordered Related Diagnosis Body Site CRYOTHERAPY OF SKIN Oct 20, 2016 IMMUNIZATIONS No Known Immunizations
--- OUTSIDE RECORDS SUMMARY | 2017-08-04 12:17 | XMS REPORT | Continuity of Care Document ---
Author Author [facility] Address Unknown Phone Unavailable Allergies Active Description Code Type Severity Reaction Onset Reported/Identified Relationship to Patient Clinical Status Yes amoxicillin Drug Allergy 12/26/2008 Yes amoxicillin Drug Allergy N/A N/A 12/26/2008 Yes amoxicillin [id number] Drug Allergy Unknown N/A 04/17/2014 Medications Problems Date Dx Coded Attending Type Code Diagnosis Diagnosed By 05/16/2008 RICHELLE COREA, NHI 599.0 Urinary Tract Infection 05/16/2008 RICHELLE COREA, NHI 788.1 Dysuria 05/16/2008 599.0 Urinary Tract Infection 05/16/2008 788.1 Dysuria 05/16/2008 599.0 Urinary Tract Infection 05/16/2008 788.1 Dysuria 05/16/2008 599.0 Urinary Tract Infection 05/16/2008 788.1 Dysuria 05/16/2008 599.0 Urinary Tract Infection 05/16/2008 788.1 Dysuria 05/16/2008 599.0 Urinary Tract Infection 05/16/2008 788.1 Dysuria 05/16/2008 599.0 Urinary Tract Infection 05/16/2008 788.1 Dysuria 05/16/2008 BARBARA ARAMBULA APRN 599.0 Urinary Tract Infection 05/16/2008 BARBARA ARAMBULA APRN 788.1 Dysuria 05/16/2008 HELEN KNAPP DO 599.0 Urinary Tract Infection 05/16/2008 HELEN KNAPP DO 788.1 Dysuria 05/16/2008 DANTE DEL REAL DDS 599.0 Urinary Tract Infection 05/16/2008 DANTE DEL REAL DDS 788.1 Dysuria 05/16/2008 ANNA MARIE GOMEZ APRN A 599.0 Urinary Tract Infection 05/16/2008 ANNA MARIE GOMEZ APRN 788.1 Dysuria 05/16/2008 JASON [employer] COVERING CONTRACTOR, ANNA MARIE A 599.0 Urinary Tract Infection 05/16/2008 JASON FLO[employer] COVERING CONTRACTOR, ANNA MARIE A 788.1 Dysuria 05/16/2008 JASON GARCIAN, ANNA MARIE A 599.0 Urinary Tract Infection 05/16/2008 JASON F[employer] COVERING CONTRACTOR, ANNA MARIE A 788.1 Dysuria 05/16/2008 WHITE DDS, DANTE D 599.0 Urinary Tract Infection 05/16/2008 WHITE DDS, DANTE D 788.1 Dysuria 05/16/2008 KNAPP DO, HELEN K 599.0 Urinary Tract Infection 05/16/2008 KNAPP DO, HELEN K 788.1 Dysuria 05/16/2008 KNAPP DO, HELEN K 599.0 Urinary Tract Infection 05/16/2008 KNAPP DO, HELEN K 788.1 Dysuria 05/16/2008 599.0 Urinary Tract Infection 05/16/2008 788.1 Dysuria 05/16/2008 KNAPP DO, HELEN K 599.0 Urinary Tract Infection 05/16/2008 KNAPP DO, HELEN K 788.1 Dysuria 05/16/2008 JASON ROJAS, ANNA MARIE A 599.0 Urinary Tract Infection 05/16/2008 JASON GARCIAN, ANNA MARIE A 788.1 Dysuria 05/16/2008 KNAPP DO, HELEN K 599.0 Urinary Tract Infection 05/16/2008 KNAPP DO, HELEN K 788.1 Dysuria 05/16/2008 JASON ROJAS, ANNA MARIE A 599.0 Urinary Tract Infection 05/16/2008 JASON ROJAS, ANNA MARIE A 788.1 Dysuria 05/16/2008 WHITE DDS, DORA J 599.0 Urinary Tract Infection 05/16/2008 WHITE DDS, DORA J 788.1 Dysuria 05/16/2008 JASON F[employer] COVERING CONTRACTOR, ANNA MARIE A 599.0 Urinary Tract Infection 05/16/2008 JASON FLO[employer] COVERING CONTRACTOR, ANNA MARIE A 788.1 Dysuria 05/16/2008 KNAPP DO, HELEN K 599.0 Urinary Tract Infection 05/16/2008 KNAPP DO, HELEN K 788.1 Dysuria 05/16/2008 KNAPP DO, HELEN K 599.0 Urinary Tract Infection 05/16/2008 KNAPP DO, HELEN K 788.1 Dysuria 05/16/2008 KNAPP DO, HELEN K 599.0 Urinary Tract Infection 05/16/2008 KNAPP DO, HELEN K 788.1 Dysuria 05/16/2008 KNAPP DO, HELEN K 599.0 Urinary Tract Infection 05/16/2008 KNAPP DO, HELEN K 788.1 Dysuria 05/16/2008 KNAPP DO, HELEN K 599.0 Urinary Tract Infection 05/16/2008 KNAPP DO, HELEN K 788.1 Dysuria 05/16/2008 JASON [employer] COVERING CONTRACTOR, ANNA MARIE A 599.0 Urinary Tract Infection 05/16/2008 JASON FLO[employer] COVERING CONTRACTOR, ANNA MARIE A 788.1 Dysuria 05/16/2008 KNAPP DO, HELEN K 599.0 Urinary Tract Infection 05/16/2008 KNAPP DO, HELEN K 788.1 Dysuria 05/16/2008 KNAPP DO, HELNE K 599.0 Urinary Tract Infection 05/16/2008 KNAPP DO, HELEN K 788.1 Dysuria 05/16/2008 KNAPP DO, HELEN K 599.0 Urinary Tract Infection 05/16/2008 KNAPP DO, HELEN K 788.1 Dysuria 05/16/2008 JASON F[employer] COVERING CONTRACTOR, ANNA MARIE A 599.0 Urinary Tract Infection 05/16/2008 JASON F[employer] COVERING CONTRACTOR, ANNA MARIE A 788.1 Dysuria 05/16/2008 JASON FLOOR COVERING CONTRACTOR, ANNA MARIE A 599.0 Urinary Tract Infection 05/16/2008 JASON FLO[employer] COVERING CONTRACTOR, ANNA MARIE A 788.1 Dysuria 05/16/2008 JASON FLOOR COVERING CONTRACTOR, ANNA MARIE A 599.0 Urinary Tract Infection 05/16/2008 JASON FLOOR COVERING CONTRACTOR, ANNA MARIE A 788.1 Dysuria 05/16/2008 JASON FLO[employer] COVERING CONTRACTOR, ANNA MARIE A 599.0 Urinary Tract Infection 05/16/2008 JASON F[employer] COVERING CONTRACTOR, ANNA MARIE A 788.1 Dysuria 06/15/2008 PEOPLES DDS, NHI V05.8 Gardasil, Shingles, Other Specified Disease 06/15/2008 V05.8 Gardasil, Shingles, Other Specified Disease 06/15/2008 V05.8 Gardasil, Shingles, Other Specified Disease 06/15/2008 V05.8 Gardasil, Shingles, Other Specified Disease 06/15/2008 V05.8 Gardasil, Shingles, Other Specified Disease 06/15/2008 V05.8 Gardasil, Shingles, Other Specified Disease 06/15/2008 V05.8 Gardasil, Shingles, Other Specified Disease 06/15/2008 BARBARA ARAMBULA APRN V05.8 Gardasil, Shingles, Other Specified Disease 06/15/2008 HELEN KNAPP DO V05.8 Gardasil, Shingles, Other Specified Disease 06/15/2008 WHITE DDS, DANTE Brady V05.8 Gardasil, Shingles, Other Specified Disease 06/15/2008 JASON ROJAS, ANNA MARIE A V05.8 Gardasil, Shingles, Other Specified Disease 06/15/2008 JASON ROJAS, ANNA MARIE A V05.8 Gardasil, Shingles, Other Specified Disease 06/15/2008 JASON ROJAS, ANNA MARIE A V05.8 Gardasil, Shingles, Other Specified Disease 06/15/2008 WHITE DDS, DANTE Brady V05.8 Gardasil, Shingles, Other Specified Disease 06/15/2008 KNAPP DOHELEN K V05.8 Gardasil, Shingles, Other Specified Disease 06/15/2008 HELEN KNAPP DO K V05.8 Gardasil, Shingles, Other Specified Disease 06/15/2008 V05.8 Gardasil, Shingles, Other Specified Disease 06/15/2008 KNAPP ANDRES PERRYA K V05.8 Gardasil, Shingles, Other Specified Disease 06/15/2008 JASON ROJAS, ANNA MARIE A V05.8 Gardasil, Shingles, Other Specified Disease 06/15/2008 KNAPP DOANDRESA K V05.8 Gardasil, Shingles, Other Specified Disease 06/15/2008 JASON ROJAS, ANNA MARIE A V05.8 Gardasil, Shingles, Other Specified Disease 06/15/2008 WHITE DDSDORA V05.8 Gardasil, Shingles, Other Specified Disease 06/15/2008 JASON ROJAS, ANNA MARIE A V05.8 Gardasil, Shingles, Other Specified Disease 06/15/2008 KNAPP DO, HELEN K V05.8 Gardasil, Shingles, Other Specified Disease 06/15/2008 KNAPP DO, HELEN K V05.8 Gardasil, Shingles, Other Specified Disease 06/15/2008 KNAPP DO, HELEN K V05.8 Gardasil, Shingles, Other Specified Disease 06/15/2008 KNAPP DO, HELEN K V05.8 Gardasil, Shingles, Other Specified Disease 06/15/2008 KNAPP DO, HELEN K V05.8 Gardasil, Shingles, Other Specified Disease 06/15/2008 JASON F[employer] COVERING CONTRACTOR, ANNA MARIE A V05.8 Gardasil, Shingles, Other Specified Disease 06/15/2008 KNAPP DO, HELEN K V05.8 Gardasil, Shingles, Other Specified Disease 06/15/2008 KNAPP DO, HELEN K V05.8 Gardasil, Shingles, Other Specified Disease 06/15/2008 KNAPP DO, HELEN K V05.8 Gardasil, Shingles, Other Specified Disease 06/15/2008 JASON FLO[employer] COVERING CONTRACTOR, ANNA MARIE A V05.8 Gardasil, Shingles, Other Specified Disease 06/15/2008 JASON FLOOR COVERING CONTRACTOR, ANNA MARIE A V05.8 Gardasil, Shingles, Other Specified Disease 06/15/2008 JASON FLOOR COVERING CONTRACTOR, ANNA MARIE A V05.8 Gardasil, Shingles, Other Specified Disease 06/15/2008 JASON FLO[employer] COVERING CONTRACTOR, ANNA MARIE A V05.8 Gardasil, Shingles, Other Specified Disease 07/02/2008 RICHELLE COREA, NHI 462 Pharyngitis Acute 07/02/2008 462 Pharyngitis Acute 07/02/2008 462 Pharyngitis Acute 07/02/2008 462 Pharyngitis Acute 07/02/2008 462 Pharyngitis Acute 07/02/2008 462 Pharyngitis Acute 07/02/2008 462 Pharyngitis Acute 07/02/2008 BARBARA ARAMBULA APRN 462 Pharyngitis Acute 07/02/2008 ANDRES KNAPP DOA K 462 Pharyngitis Acute 07/02/2008 DANTE DEL REAL DDS 462 Pharyngitis Acute 07/02/2008 JASON FLOOR COVERING CONTRACTOR, ANNA MARIE A 462 Pharyngitis Acute 07/02/2008 JASON FLOOR COVERING CONTRACTOR, ANNA MARIE A 462 Pharyngitis Acute 07/02/2008 JASON FLOOR COVERING CONTRACTOR, ANNA MARIE A 462 Pharyngitis Acute 07/02/2008 DANTE DEL REAL DDS 462 Pharyngitis Acute 07/02/2008 KNAPP DO, HELEN K 462 Pharyngitis Acute 07/02/2008 KNAPP DO, HELEN K 462 Pharyngitis Acute 07/02/2008 462 Pharyngitis Acute 07/02/2008 KNAPP DO, HELEN K 462 Pharyngitis Acute 07/02/2008 JASON FLOOR COVERING CONTRACTOR, ANNA MARIE A 462 Pharyngitis Acute 07/02/2008 KNAPP DO, HELEN K 462 Pharyngitis Acute 07/02/2008 JASON FLOOR COVERING CONTRACTOR, ANNA MARIE A 462 Pharyngitis Acute 07/02/2008 DORA DEL REAL DDS 462 Pharyngitis Acute 07/02/2008 JASON FLOOR COVERING CONTRACTOR, ANNA MARIE A 462 Pharyngitis Acute 07/02/2008 KNAPP DO, HELEN K 462 Pharyngitis Acute 07/02/2008 KNAPP DO, HELEN K 462 Pharyngitis Acute 07/02/2008 KNAPP DO, HELEN K 462 Pharyngitis Acute 07/02/2008 KNAPP DO, HELEN K 462 Pharyngitis Acute 07/02/2008 KNAPP DO, HELEN K 462 Pharyngitis Acute 07/02/2008 JASON FLOOR COVERING CONTRACTOR, ANNA MARIE A 462 Pharyngitis Acute 07/02/2008 KNAPP DO, HELEN K 462 Pharyngitis Acute 07/02/2008 KNAPP DO, HELEN K 462 Pharyngitis Acute 07/02/2008 KNAPP DO, HELEN K 462 Pharyngitis Acute 07/02/2008 JASON FLOOR COVERING CONTRACTOR, ANNA MARIE A 462 Pharyngitis Acute 07/02/2008 JASON FLOOR COVERING CONTRACTOR, ANNA MARIE A 462 Pharyngitis Acute 07/02/2008 JASON FLOOR COVERING CONTRACTOR, ANNA MARIE A 462 Pharyngitis Acute 07/02/2008 JASON FLOOR COVERING CONTRACTOR, ANNA MARIE A 462 Pharyngitis Acute 07/10/2008 PEOPLES DDS, NHI 300.00 AN ANXIETY UNSPEC 07/10/2008 300.00 AN ANXIETY UNSPEC 07/10/2008 300.00 AN ANXIETY UNSPEC 07/10/2008 300.00 AN ANXIETY UNSPEC 07/10/2008 300.00 AN ANXIETY UNSPEC 07/10/2008 300.00 AN ANXIETY UNSPEC 07/10/2008 300.00 AN ANXIETY UNSPEC 07/10/2008 BARBARA ARAMBULA APRN 300.00 AN ANXIETY UNSPEC 07/10/2008 KNAPP DO, HELEN K 300.00 AN ANXIETY UNSPEC 07/10/2008 WHITE DDS, DANTE Brady 300.00 AN ANXIETY UNSPEC 07/10/2008 JASON FLOOR COVERING CONTRACTOR, ANNA MARIE A 300.00 AN ANXIETY UNSPEC 07/10/2008 JASON FLOOR COVERING CONTRACTOR, ANNA MARIE A 300.00 AN ANXIETY UNSPEC 07/10/2008 JASON FLOOR COVERING CONTRACTOR, ANNA MARIE A 300.00 AN ANXIETY UNSPEC 07/10/2008 WHITE DDSDANTE 300.00 AN ANXIETY UNSPEC 07/10/2008 KNAPP DO, HELEN K 300.00 AN ANXIETY UNSPEC 07/10/2008 KNAPP DO, HELEN K 300.00 AN ANXIETY UNSPEC 07/10/2008 300.00 AN ANXIETY UNSPEC 07/10/2008 KNAPP DO, HELEN K 300.00 AN ANXIETY UNSPEC 07/10/2008 JASON FLOOR COVERING CONTRACTOR, ANNA MARIE A 300.00 AN ANXIETY UNSPEC 07/10/2008 KNAPP DO, HELEN K 300.00 AN ANXIETY UNSPEC 07/10/2008 JASON FLOOR COVERING CONTRACTOR, ANNA MARIE A 300.00 AN ANXIETY UNSPEC 07/10/2008 WHITE DDSDORA 300.00 AN ANXIETY UNSPEC 07/10/2008 JASON FLOOR COVERING CONTRACTOR, ANNA MARIE A 300.00 AN ANXIETY UNSPEC 07/10/2008 KNAPP DO, HELEN K 300.00 AN ANXIETY UNSPEC 07/10/2008 KNAPP DO, HELEN K 300.00 AN ANXIETY UNSPEC 07/10/2008 KNAPP DO, HELEN K 300.00 AN ANXIETY UNSPEC 07/10/2008 KNAPP DO, HELEN K 300.00 AN ANXIETY UNSPEC 07/10/2008 KNAPP DO, EHLEN K 300.00 AN ANXIETY UNSPEC 07/10/2008 JASON GARCIAN, ANNA MARIE A 300.00 AN ANXIETY UNSPEC 07/10/2008 KNAPP DO, HELEN K 300.00 AN ANXIETY UNSPEC 07/10/2008 KNAPP DO, HELEN K 300.00 AN ANXIETY UNSPEC 07/10/2008 HELEN KNAPP DO 300.00 AN ANXIETY UNSPEC 07/10/2008 JASON FLOOR COVERING CONTRACTOR, ANNA MARIE A 300.00 AN ANXIETY UNSPEC 07/10/2008 JASON FLOOR COVERING CONTRACTOR, ANNA MARIE A 300.00 AN ANXIETY UNSPEC 07/10/2008 JASON FLOOR COVERING CONTRACTOR, ANNA MARIE A 300.00 AN ANXIETY UNSPEC 07/10/2008 JASON FLOOR COVERING CONTRACTOR, ANNA MARIE A 300.00 AN ANXIETY UNSPEC 08/03/2008 PEOPLES DDS, NHI 535.50 Gastritis Unspec 08/03/2008 PEOPLES DDS, NHI V25.40 Contraceptive Surveillance Unspecified 08/03/2008 535.50 Gastritis Unspec 08/03/2008 V25.40 Contraceptive Surveillance Unspecified 08/03/2008 535.50 Gastritis Unspec 08/03/2008 V25.40 Contraceptive Surveillance Unspecified 08/03/2008 535.50 Gastritis Unspec 08/03/2008 V25.40 Contraceptive Surveillance Unspecified 08/03/2008 535.50 Gastritis Unspec 08/03/2008 V25.40 Contraceptive Surveillance Unspecified 08/03/2008 535.50 Gastritis Unspec 08/03/2008 V25.40 Contraceptive Surveillance Unspecified 08/03/2008 535.50 Gastritis Unspec 08/03/2008 V25.40 Contraceptive Surveillance Unspecified 08/03/2008 BARBARA ARAMBULA APRN 535.50 Gastritis Unspec 08/03/2008 BARBARA ARAMBULA APRN V25.40 Contraceptive Surveillance Unspecified 08/03/2008 HELEN KNAPP DO 535.50 Gastritis Unspec 08/03/2008 HELEN KNAPP DO V25.40 Contraceptive Surveillance Unspecified 08/03/2008 DANTE DEL REAL DDS 535.50 Gastritis Unspec 08/03/2008 DANTE DEL REAL DDS V25.40 Contraceptive Surveillance Unspecified 08/03/2008 JASON FLOOR COVERING CONTRACTOR, ANNA MARIE A 535.50 Gastritis Unspec 08/03/2008 JASON FLOOR COVERING CONTRACTOR, ANNA MARIE A V25.40 Contraceptive Surveillance Unspecified 08/03/2008 JASON FLOOR COVERING CONTRACTOR, ANNA MARIE A 535.50 Gastritis Unspec 08/03/2008 JASON FLOOR COVERING CONTRACTOR, ANNA MARIE A V25.40 Contraceptive Surveillance Unspecified 08/03/2008 JASON FLOOR COVERING CONTRACTOR, ANNA MARIE A 535.50 Gastritis Unspec 08/03/2008 JASON FLOOR COVERING CONTRACTOR, ANNA MARIE A V25.40 Contraceptive Surveillance Unspecified 08/03/2008 WHITE DDS, DANTE D 535.50 Gastritis Unspec 08/03/2008 WHITE DDS, DANTE Brady V25.40 Contraceptive Surveillance Unspecified 08/03/2008 KNAPP DO, HELEN K 535.50 Gastritis Unspec 08/03/2008 KNAPP DO, HELEN K V25.40 Contraceptive Surveillance Unspecified 08/03/2008 KNAPP DO, HELEN K 535.50 Gastritis Unspec 08/03/2008 KNAPP DO, HELEN K V25.40 Contraceptive Surveillance Unspecified 08/03/2008 535.50 Gastritis Unspec 08/03/2008 V25.40 Contraceptive Surveillance Unspecified 08/03/2008 KNAPP DO, HELEN K 535.50 Gastritis Unspec 08/03/2008 KNAPP DO, HELEN K V25.40 Contraceptive Surveillance Unspecified 08/03/2008 JASON FLOOR COVERING CONTRACTOR, ANNA MARIE A 535.50 Gastritis Unspec 08/03/2008 JASON FLOOR COVERING CONTRACTOR, ANNA MARIE A V25.40 Contraceptive Surveillance Unspecified 08/03/2008 KNAPP DO, HELEN K 535.50 Gastritis Unspec 08/03/2008 KNAPP DO, HELEN K V25.40 Contraceptive Surveillance Unspecified 08/03/2008 JASON FLOOR COVERING CONTRACTOR, ANNA MARIE A 535.50 Gastritis Unspec 08/03/2008 JASON FLOOR COVERING CONTRACTOR, ANNA MARIE A V25.40 Contraceptive Surveillance Unspecified 08/03/2008 NASIMA DDS, DORA J 535.50 Gastritis Unspec 08/03/2008 NASIMA DDSDORA J V25.40 Contraceptive Surveillance Unspecified 08/03/2008 JASON FLOOR COVERING CONTRACTOR, ANNA MARIE A 535.50 Gastritis Unspec 08/03/2008 JASON FLOOR COVERING CONTRACTOR, ANNA MARIE A V25.40 Contraceptive Surveillance Unspecified 08/03/2008 KNAPP DO, HELEN K 535.50 Gastritis Unspec 08/03/2008 KNAPP DO, HELEN K V25.40 Contraceptive Surveillance Unspecified 08/03/2008 KNAPP DO, HELEN K 535.50 Gastritis Unspec 08/03/2008 KNAPP DO, HELEN K V25.40 Contraceptive Surveillance Unspecified 08/03/2008 KNAPP DO, HELEN K 535.50 Gastritis Unspec 08/03/2008 KNAPP DO, HELEN K V25.40 Contraceptive Surveillance Unspecified 08/03/2008 KNAPP DO, HELEN K 535.50 Gastritis Unspec 08/03/2008 KNAPP DO, HELEN K V25.40 Contraceptive Surveillance Unspecified 08/03/2008 KNAPP DO, HELEN K 535.50 Gastritis Unspec 08/03/2008 KNAPP DO, HELEN K V25.40 Contraceptive Surveillance Unspecified 08/03/2008 JASON FLOOR COVERING CONTRACTOR, ANNA MARIE A 535.50 Gastritis Unspec 08/03/2008 JASON FLOOR COVERING CONTRACTOR, ANNA MARIE A V25.40 Contraceptive Surveillance Unspecified 08/03/2008 KNAPP DO, HELEN K 535.50 Gastritis Unspec 08/03/2008 KNAPP DO, HELEN K V25.40 Contraceptive Surveillance Unspecified 08/03/2008 KNAPP DO, HELEN K 535.50 Gastritis Unspec 08/03/2008 KNAPP DO, HELEN K V25.40 Contraceptive Surveillance Unspecified 08/03/2008 KNAPP DO, HELEN K 535.50 Gastritis Unspec 08/03/2008 KNAPP DO, HELEN K V25.40 Contraceptive Surveillance Unspecified 08/03/2008 JASON FLOOR COVERING CONTRACTOR, ANNA MARIE A 535.50 Gastritis Unspec 08/03/2008 JASON FLOOR COVERING CONTRACTOR, ANNA MARIE A V25.40 Contraceptive Surveillance Unspecified 08/03/2008 JASON FLOOR COVERING CONTRACTOR, ANNA MARIE A 535.50 Gastritis Unspec 08/03/2008 JASON FLOOR COVERING CONTRACTOR, ANNA MARIE A V25.40 Contraceptive Surveillance Unspecified 08/03/2008 JASON FLOOR COVERING CONTRACTOR, ANNA MARIE A 535.50 Gastritis Unspec 08/03/2008 JASON FLOOR COVERING CONTRACTOR, ANNA MARIE A V25.40 Contraceptive Surveillance Unspecified 08/03/2008 JASON FLOOR COVERING CONTRACTOR, ANNA MARIE A 535.50 Gastritis Unspec 08/03/2008 JASON FLOOR COVERING CONTRACTOR, ANNA MARIE A V25.40 Contraceptive Surveillance Unspecified 08/07/2008 PEOPLES DDS, NHI 787.02 Nausea Alone 08/07/2008 PEOPLES DDS, NHI V58.69 Medication High Risk 08/07/2008 787.02 Nausea Alone 08/07/2008 V58.69 Medication High Risk 08/07/2008 787.02 Nausea Alone 08/07/2008 V58.69 Medication High Risk 08/07/2008 787.02 Nausea Alone 08/07/2008 V58.69 Medication High Risk 08/07/2008 787.02 Nausea Alone 08/07/2008 V58.69 Medication High Risk 08/07/2008 787.02 Nausea Alone 08/07/2008 V58.69 Medication High Risk 08/07/2008 787.02 Nausea Alone 08/07/2008 V58.69 Medication High Risk 08/07/2008 BARBARA ARAMBULA APRN 787.02 Nausea Alone 08/07/2008 BARBARA ARAMBULA APRN V58.69 Medication High Risk 08/07/2008 KNAPP DO, HELEN K 787.02 Nausea Alone 08/07/2008 KNAPP DO, HELEN K V58.69 Medication High Risk 08/07/2008 WHITE DDS, DANTE D 787.02 Nausea Alone 08/07/2008 WHITE DDS, DANTE D V58.69 Medication High Risk 08/07/2008 JASON FLO[employer] COVERING CONTRACTOR, ANNA MARIE A 787.02 Nausea Alone 08/07/2008 JASON FLOOR COVERING CONTRACTOR, ANNA MARIE A V58.69 Medication High Risk 08/07/2008 JASON FLOOR COVERING CONTRACTOR, ANNA MARIE A 787.02 Nausea Alone 08/07/2008 JASON FLOOR COVERING CONTRACTOR, ANNA MARIE A V58.69 Medication High Risk 08/07/2008 JASON FLOOR COVERING CONTRACTOR, ANNA MARIE A 787.02 Nausea Alone 08/07/2008 JASON FLOOR COVERING CONTRACTOR, ANNA MARIE A V58.69 Medication High Risk 08/07/2008 WHITE DDS, DANTE D 787.02 Nausea Alone 08/07/2008 WHITE DDS, DANTE D V58.69 Medication High Risk 08/07/2008 KNAPP DO, HELEN K 787.02 Nausea Alone 08/07/2008 KNAPP DO, HELEN K V58.69 Medication High Risk 08/07/2008 KNAPP DO, HELEN K 787.02 Nausea Alone 08/07/2008 KNAPP DO, HELEN K V58.69 Medication High Risk 08/07/2008 787.02 Nausea Alone 08/07/2008 V58.69 Medication High Risk 08/07/2008 KNAPP DO, HELEN K 787.02 Nausea Alone 08/07/2008 KNAPP DO, HELEN K V58.69 Medication High Risk 08/07/2008 JASON FLOOR COVERING CONTRACTOR, ANNA MARIE A 787.02 Nausea Alone 08/07/2008 JASON FLO[employer] COVERING CONTRACTOR, ANNA MARIE A V58.69 Medication High Risk 08/07/2008 KNAPP DO, HELEN K 787.02 Nausea Alone 08/07/2008 KNAPP DO, HELEN K V58.69 Medication High Risk 08/07/2008 JASON FLO[employer] COVERING CONTRACTOR, ANNA MARIE A 787.02 Nausea Alone 08/07/2008 JASON FLOOR COVERING CONTRACTOR, ANNA MARIE A V58.69 Medication High Risk 08/07/2008 WHITE DDS, DORA J 787.02 Nausea Alone 08/07/2008 WHITE DDS, DORA J V58.69 Medication High Risk 08/07/2008 JASON FLO[employer] COVERING CONTRACTOR, ANNA MARIE A 787.02 Nausea Alone 08/07/2008 JASON FLOOR COVERING CONTRACTOR, ANNA MARIE A V58.69 Medication High Risk 08/07/2008 KNAPP DO, HELEN K 787.02 Nausea Alone 08/07/2008 KNAPP DO, HELEN K V58.69 Medication High Risk 08/07/2008 KNAPP DO, HELEN K 787.02 Nausea Alone 08/07/2008 KNAPP DO, HELEN K V58.69 Medication High Risk 08/07/2008 KNAPP DO, HELEN K 787.02 Nausea Alone 08/07/2008 KNAPP DO, HELEN K V58.69 Medication High Risk 08/07/2008 KNAPP DO, HELEN K 787.02 Nausea Alone 08/07/2008 KNAPP DO, HELEN K V58.69 Medication High Risk 08/07/2008 KNAPP DO, HELEN K 787.02 Nausea Alone 08/07/2008 KNAPP DO, HELEN K V58.69 Medication High Risk 08/07/2008 JASON FLOOR COVERING CONTRACTOR, ANNA MARIE A 787.02 Nausea Alone 08/07/2008 JASON FLOOR COVERING CONTRACTOR, ANNA MARIE A V58.69 Medication High Risk 08/07/2008 KNAPP DO, HELEN K 787.02 Nausea Alone 08/07/2008 KNAPP DO, HELEN K V58.69 Medication High Risk 08/07/2008 KNAPP DO, HELEN K 787.02 Nausea Alone 08/07/2008 KNAPP DO, HELEN K V58.69 Medication High Risk 08/07/2008 KNAPP DO, HELEN K 787.02 Nausea Alone 08/07/2008 KNAPP DO, HELEN K V58.69 Medication High Risk 08/07/2008 JASON FLOOR COVERING CONTRACTOR, ANNA MARIE A 787.02 Nausea Alone 08/07/2008 JASON FLOOR COVERING CONTRACTOR, ANNA MARIE A V58.69 Medication High Risk 08/07/2008 JASON FLOOR COVERING CONTRACTOR, ANNA MARIE A 787.02 Nausea Alone 08/07/2008 JASON FLOOR COVERING CONTRACTOR, ANNA MARIE A V58.69 Medication High Risk 08/07/2008 JASON FLOOR COVERING CONTRACTOR, ANNA MARIE A 787.02 Nausea Alone 08/07/2008 JASON FLOOR COVERING CONTRACTOR, ANNA MARIE A V58.69 Medication High Risk 08/07/2008 JASON FLOOR COVERING CONTRACTOR, ANNA MARIE A 787.02 Nausea Alone 08/07/2008 JASON FLOOR COVERING CONTRACTOR, ANNA MARIE A V58.69 Medication High Risk 08/08/2008 PEOPLES DDS, NHI 041.86 Helicobacter Pylori (h. Pylori) Infection 08/08/2008 041.86 Helicobacter Pylori (h. Pylori) Infection 08/08/2008 041.86 Helicobacter Pylori (h. Pylori) Infection 08/08/2008 041.86 Helicobacter Pylori (h. Pylori) Infection 08/08/2008 041.86 Helicobacter Pylori (h. Pylori) Infection 08/08/2008 041.86 Helicobacter Pylori (h. Pylori) Infection 08/08/2008 041.86 Helicobacter Pylori (h. Pylori) Infection 08/08/2008 BARBARA ARAMBULA APRN 041.86 Helicobacter Pylori (h. Pylori) Infection 08/08/2008 KNAPP DO HELEN K 041.86 Helicobacter Pylori (h. Pylori) Infection 08/08/2008 NASIMA DDS, DANTE Brady 041.86 Helicobacter Pylori (h. Pylori) Infection 08/08/2008 JASON FLOOR COVERING CONTRACTOR, ANNA MARIE A 041.86 Helicobacter Pylori (h. Pylori) Infection 08/08/2008 JASON FLOOR COVERING CONTRACTOR, ANNA MARIE A 041.86 Helicobacter Pylori (h. Pylori) Infection 08/08/2008 JASON [employer]OVER[employer]OR, ANNA MARIE A 041.86 Helicobacter Pylori (h. Pylori) Infection 08/08/2008 NASIMA DDS, DANTE Brady 041.86 Helicobacter Pylori (h. Pylori) Infection 08/08/2008 KNAPP DO HELEN K 041.86 Helicobacter Pylori (h. Pylori) Infection 08/08/2008 KNAPP DO HELEN K 041.86 Helicobacter Pylori (h. Pylori) Infection 08/08/2008 041.86 Helicobacter Pylori (h. Pylori) Infection 08/08/2008 KNAPP DO, HELEN K 041.86 Helicobacter Pylori (h. Pylori) Infection 08/08/2008 JASON [employer]OR, ANNA MARIE A 041.86 Helicobacter Pylori (h. Pylori) Infection 08/08/2008 KNAPP DO, HELEN K 041.86 Helicobacter Pylori (h. Pylori) Infection 08/08/2008 JASON [employer]OR, ANNA MARIE A 041.86 Helicobacter Pylori (h. Pylori) Infection 08/08/2008 NASIMA DDS, DORA [place] 041.86 Helicobacter Pylori (h. Pylori) Infection 08/08/2008 JASON [employer]OR, ANNA MARIE A 041.86 Helicobacter Pylori (h. Pylori) Infection 08/08/2008 KNAPP DO, HELEN K 041.86 Helicobacter Pylori (h. Pylori) Infection 08/08/2008 KNAPP DO, HELEN K 041.86 Helicobacter Pylori (h. Pylori) Infection 08/08/2008 KNAPP DO, HELEN K 041.86 Helicobacter Pylori (h. Pylori) Infection 08/08/2008 KNAPP DO, HELEN K 041.86 Helicobacter Pylori (h. Pylori) Infection 08/08/2008 KNAPP DO, HELEN K 041.86 Helicobacter Pylori (h. Pylori) Infection 08/08/2008 JASON GARCIAN, ANNA MARIE A 041.86 Helicobacter Pylori (h. Pylori) Infection 08/08/2008 KNAPP DO, HELEN K 041.86 Helicobacter Pylori (h. Pylori) Infection 08/08/2008 KNAPP DO, HELEN K 041.86 Helicobacter Pylori (h. Pylori) Infection 08/08/2008 KNAPP DO, HELEN K 041.86 Helicobacter Pylori (h. Pylori) Infection 08/08/2008 JASON [employer]OR, ANNA MARIE A 041.86 Helicobacter Pylori (h. Pylori) Infection 08/08/2008 JASON [employer]OR, ANNA MARIE A 041.86 Helicobacter Pylori (h. Pylori) Infection 08/08/2008 JASON [employer]ING [employer]OR, ANNA MARIE A 041.86 Helicobacter Pylori (h. Pylori) Infection 08/08/2008 JASON [employer]OR, ANNA MARIE A 041.86 Helicobacter Pylori (h. 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 KNAPP DO, HELEN K 733.6 Tietze's Disease 08/21/2008 WHITE DDS, DANTE Brady 733.6 Tietze's Disease 08/21/2008 JASON FLOOR COVERING CONTRACTOR, ANNA MARIE A 733.6 Tietze's Disease 08/21/2008 JASON FLOOR COVERING CONTRACTOR, ANNA MARIE A 733.6 Tietze's Disease 08/21/2008 JASON FLOOR COVERING CONTRACTOR, ANNA MARIE A 733.6 Tietze's Disease 08/21/2008 WHITE DDS, DANTE Brady 733.6 Tietze's Disease 08/21/2008 KNAPP DO, HELEN K 733.6 Tietze's Disease 08/21/2008 KNAPP DO, HELEN K 733.6 Tietze's Disease 08/21/2008 733.6 Tietze's Disease 08/21/2008 KNAPP DO, HELEN K 733.6 Tietze's Disease 08/21/2008 JASON GARCIAN, ANNA MARIE A 733.6 Tietze's Disease 08/21/2008 KNAPP DO, HELEN K 733.6 Tietze's Disease 08/21/2008 JASON FLOOR COVERING CONTRACTOR, ANNA MARIE A 733.6 Tietze's Disease 08/21/2008 NASIMA DDSDORA 733.6 Tietze's Disease 08/21/2008 JASON ROJAS, ANNA MARIE A 733.6 Tietze's Disease 08/21/2008 KNAPP DO, HELEN K 733.6 Tietze's Disease 08/21/2008 KNAPP DO, HELEN K 733.6 Tietze's Disease 08/21/2008 KNAPP DO, HELEN K 733.6 Tietze's Disease 08/21/2008 KNAPP DO, HELEN K 733.6 Tietze's Disease 08/21/2008 KNAPP DO, HELEN K 733.6 Tietze's Disease 08/21/2008 JASON ROJAS, ANNA MARIE A 733.6 Tietze's Disease 08/21/2008 KNAPP DO, HELEN K 733.6 Tietze's Disease 08/21/2008 KNAPP DO, HELEN K 733.6 Tietze's Disease 08/21/2008 KNAPP DO, HELEN K 733.6 Tietze's Disease 08/21/2008 JASON FLOOR COVERING CONTRACTOR, ANNA MARIE A 733.6 Tietze's Disease 08/21/2008 JASON FLOOR COVERING CONTRACTOR, ANNA MARIE A 733.6 Tietze's Disease 08/21/2008 JASON FLOOR COVERING CONTRACTOR, ANNA MARIE A 733.6 Tietze's Disease 08/21/2008 JASON FLOOR COVERING CONTRACTOR, ANNA MARIE A 733.6 Tietze's Disease 11/06/2008 RICHELLE COREA, NHI 789.00 Abdominal Pain Unspecified Site 11/06/2008 789.00 Abdominal Pain Unspecified Site 11/06/2008 789.00 Abdominal Pain Unspecified Site 11/06/2008 789.00 Abdominal Pain Unspecified Site 11/06/2008 789.00 Abdominal Pain Unspecified Site 11/06/2008 789.00 Abdominal Pain Unspecified Site 11/06/2008 789.00 Abdominal Pain Unspecified Site 11/06/2008 BARBARA ARAMBULA APRN 789.00 Abdominal Pain Unspecified Site 11/06/2008 KNAPP DO, HELEN K 789.00 Abdominal Pain Unspecified Site 11/06/2008 DANTE DEL REAL DDS 789.00 Abdominal Pain Unspecified Site 11/06/2008 JASON FLOOR COVERING CONTRACTOR, ANNA MARIE A 789.00 Abdominal Pain Unspecified Site 11/06/2008 JASON FLOOR COVERING CONTRACTOR, ANNA MARIE A 789.00 Abdominal Pain Unspecified Site 11/06/2008 JASON FLOOR COVERING CONTRACTOR, ANNA MARIE A 789.00 Abdominal Pain Unspecified Site 11/06/2008 DANTE DEL REAL DDS 789.00 Abdominal Pain Unspecified Site 11/06/2008 KNAPP DO, HELEN K 789.00 Abdominal Pain Unspecified Site 11/06/2008 KNAPP DO, HELEN K 789.00 Abdominal Pain Unspecified Site 11/06/2008 789.00 Abdominal Pain Unspecified Site 11/06/2008 KNAPP DO, HELEN K 789.00 Abdominal Pain Unspecified Site 11/06/2008 JASON FLOOR COVERING CONTRACTOR, ANNA MARIE A 789.00 Abdominal Pain Unspecified Site 11/06/2008 KNAPP DO, HELEN K 789.00 Abdominal Pain Unspecified Site 11/06/2008 JASON FLOOR COVERING CONTRACTOR, ANNA MARIE A 789.00 Abdominal Pain Unspecified Site 11/06/2008 DORA DEL REAL DDS 789.00 Abdominal Pain Unspecified Site 11/06/2008 JASON FLOOR COVERING CONTRACTOR, ANNA MARIE A 789.00 Abdominal Pain Unspecified Site 11/06/2008 KNAPP DO, HELEN K 789.00 Abdominal Pain Unspecified Site 11/06/2008 KNAPP DO, HELEN K 789.00 Abdominal Pain Unspecified Site 11/06/2008 KNAPP DO, HELEN K 789.00 Abdominal Pain Unspecified Site 11/06/2008 KNAPP DO, HELEN K 789.00 Abdominal Pain Unspecified Site 11/06/2008 KNAPP DO, HELEN K 789.00 Abdominal Pain Unspecified Site 11/06/2008 JASON FLOOR COVERING CONTRACTOR, ANNA MARIE A 789.00 Abdominal Pain Unspecified Site 11/06/2008 KNAPP DO, HELEN K 789.00 Abdominal Pain Unspecified Site 11/06/2008 KNAPP DO, HELEN K 789.00 Abdominal Pain Unspecified Site 11/06/2008 KNAPP DO, HELEN K 789.00 Abdominal Pain Unspecified Site 11/06/2008 JASON FLOOR COVERING CONTRACTOR, ANNA MARIE A 789.00 Abdominal Pain Unspecified Site 11/06/2008 JASON FLOOR COVERING CONTRACTOR, ANNA MARIE A 789.00 Abdominal Pain Unspecified Site 11/06/2008 JASON FLOOR COVERING CONTRACTOR, ANNA MARIE A 789.00 Abdominal Pain Unspecified Site 11/06/2008 JASON FLOOR COVERING CONTRACTOR, ANNA MARIE A 789.00 Abdominal Pain Unspecified Site 12/05/2008 RICHELLE COREA, NHI 786.2 Cough 12/05/2008 786.2 Cough 12/05/2008 786.2 Cough 12/05/2008 786.2 Cough 12/05/2008 786.2 Cough 12/05/2008 786.2 Cough 12/05/2008 786.2 Cough 12/05/2008 BARBARA ARAMBULA APRN 786.2 Cough 12/05/2008 KNAPP DO, HELEN K 786.2 Cough 12/05/2008 DANTE DEL REAL DDS 786.2 Cough 12/05/2008 JASON FLOOR COVERING CONTRACTOR, ANNA MARIE A 786.2 Cough 12/05/2008 JASON FLOOR COVERING CONTRACTOR, ANNA MARIE A 786.2 Cough 12/05/2008 JASON FLOOR COVERING CONTRACTOR, ANNA MARIE A 786.2 Cough 12/05/2008 WHITE DDS, DANTE Brady 786.2 Cough 12/05/2008 KNAPP DO, HELEN K 786.2 Cough 12/05/2008 KNAPP DO, HELEN K 786.2 Cough 12/05/2008 786.2 Cough 12/05/2008 KNAPP DO, HELEN K 786.2 Cough 12/05/2008 JASON FLOOR COVERING CONTRACTOR, ANNA MARIE A 786.2 Cough 12/05/2008 KNAPP DO, HELEN K 786.2 Cough 12/05/2008 JASON FLOOR COVERING CONTRACTOR, ANNA MARIE A 786.2 Cough 12/05/2008 NASIMA DDS, DORA Mujica 786.2 Cough 12/05/2008 JASON FLOOR COVERING CONTRACTOR, ANNA MARIE A 786.2 Cough 12/05/2008 KNAPP DO, HELEN K 786.2 Cough 12/05/2008 KNAPP DO, HELEN K 786.2 Cough 12/05/2008 KNAPP DO, HELEN K 786.2 Cough 12/05/2008 KNAPP DO, HELEN K 786.2 Cough 12/05/2008 KNAPP DO, HELEN K 786.2 Cough 12/05/2008 JASON FLOOR COVERING CONTRACTOR, ANNA MARIE A 786.2 Cough 12/05/2008 KNAPP DO, HELEN K 786.2 Cough 12/05/2008 KNAPP DO, HELEN K 786.2 Cough 12/05/2008 KNAPP DO, HELEN K 786.2 Cough 12/05/2008 JASON FLOOR COVERING CONTRACTOR, ANNA MARIE A 786.2 Cough 12/05/2008 JASON FLOOR COVERING CONTRACTOR, ANNA MARIE A 786.2 Cough 12/05/2008 JASON FLOOR COVERING CONTRACTOR, ANNA MARIE A 786.2 Cough 12/05/2008 JASON FLOOR COVERING CONTRACTOR, ANNA MARIE A 786.2 Cough 12/20/2008 PEOPLES DDS, NHI 301.9 Pd Pers Dis Nos 12/20/2008 301.9 Pd Pers Dis Nos 12/20/2008 301.9 Pd Pers Dis Nos 12/20/2008 301.9 Pd Pers Dis Nos 12/20/2008 301.9 Pd Pers Dis Nos 12/20/2008 301.9 Pd Pers Dis Nos 12/20/2008 301.9 Pd Pers Dis Nos 12/20/2008 BARBARA ARAMBULA APRN 301.9 Pd Pers Dis Nos 12/20/2008 KNAPP DO, HELEN K 301.9 Pd Pers Dis Nos 12/20/2008 WHITE DDS, DANTE D 301.9 Pd Pers Dis Nos 12/20/2008 JASON FLOOR COVERING CONTRACTOR, ANNA MARIE A 301.9 Pd Pers Dis Nos 12/20/2008 JASON FLOOR COVERING CONTRACTOR, ANNA MARIE A 301.9 Pd Pers Dis Nos 12/20/2008 JASON FLOOR COVERING CONTRACTOR, ANNA MARIE A 301.9 Pd Pers Dis Nos 12/20/2008 WHITE DDS, DANTE D 301.9 Pd Pers Dis Nos 12/20/2008 KNAPP DO, HELEN K 301.9 Pd Pers Dis Nos 12/20/2008 KNAPP DO, HELEN K 301.9 Pd Pers Dis Nos 12/20/2008 301.9 Pd Pers Dis Nos 12/20/2008 KNAPP DO, HELEN K 301.9 Pd Pers Dis Nos 12/20/2008 JASON FLOOR COVERING CONTRACTOR, ANNA MARIE A 301.9 Pd Pers Dis Nos 12/20/2008 KNAPP DO, HELEN K 301.9 Pd Pers Dis Nos 12/20/2008 JASON FLOOR COVERING CONTRACTOR, ANNA MARIE A 301.9 Pd Pers Dis Nos 12/20/2008 WHITE DDS, DORA J 301.9 Pd Pers Dis Nos 12/20/2008 JASON FLOOR COVERING CONTRACTOR, ANNA MARIE A 301.9 Pd Pers Dis Nos 12/20/2008 KNAPP DO, HELEN K 301.9 Pd Pers Dis Nos 12/20/2008 KNAPP DO, HELEN K 301.9 Pd Pers Dis Nos 12/20/2008 KNAPP DO, HELEN K 301.9 Pd Pers Dis Nos 12/20/2008 KNAPP DO, HELEN K 301.9 Pd Pers Dis Nos 12/20/2008 KNAPP DO, HELEN K 301.9 Pd Pers Dis Nos 12/20/2008 JASON FLOOR COVERING CONTRACTOR, ANNA MARIE A 301.9 Pd Pers Dis Nos 12/20/2008 KNAPP DO, HELEN K 301.9 Pd Pers Dis Nos 12/20/2008 KNAPP DO, HELEN K 301.9 Pd Pers Dis Nos 12/20/2008 KNAPP DO, HELEN K 301.9 Pd Pers Dis Nos 12/20/2008 JASON FLOOR COVERING CONTRACTOR, ANNA MARIE A 301.9 Pd Pers Dis Nos 12/20/2008 JASON FLOOR COVERING CONTRACTOR, ANNA MARIE A 301.9 Pd Pers Dis Nos 12/20/2008 JASON FLOOR COVERING CONTRACTOR, ANNA MARIE A 301.9 Pd Pers Dis Nos 12/20/2008 JASON FLOOR COVERING CONTRACTOR, ANNA MARIE A 301.9 Pd Pers Dis Nos 12/26/2008 NHI [place]OPLES DDS V72.3 GYNECOLOGICAL EXAMINATION 12/26/2008 V72.3 GYNECOLOGICAL EXAMINATION 12/26/2008 V72.3 GYNECOLOGICAL EXAMINATION 12/26/2008 V72.3 GYNECOLOGICAL EXAMINATION 12/26/2008 V72.3 GYNECOLOGICAL EXAMINATION 12/26/2008 V72.3 GYNECOLOGICAL EXAMINATION 12/26/2008 V72.3 GYNECOLOGICAL EXAMINATION 12/26/2008 BARBARA ARAMBULA APRN V72.3 GYNECOLOGICAL EXAMINATION 12/26/2008 KNAPP DO, HELEN K V72.3 GYNECOLOGICAL EXAMINATION 12/26/2008 DANTE DEL REAL DDS V72.3 GYNECOLOGICAL EXAMINATION 12/26/2008 JASONNIK ROJAS, ANNA MARIE A V72.3 GYNECOLOGICAL EXAMINATION 12/26/2008 JASON RJOAS, ANNA MARIE A V72.3 GYNECOLOGICAL EXAMINATION 12/26/2008 JASON ROJAS, ANNA MARIE A V72.3 GYNECOLOGICAL EXAMINATION 12/26/2008 DANTE DEL REAL DDS V72.3 GYNECOLOGICAL EXAMINATION 12/26/2008 KNAPP DO, HELEN K V72.3 GYNECOLOGICAL EXAMINATION 12/26/2008 KNAPP DO, HELEN K V72.3 GYNECOLOGICAL EXAMINATION 12/26/2008 V72.3 GYNECOLOGICAL EXAMINATION 12/26/2008 KNAPP DO, HELEN K V72.3 GYNECOLOGICAL EXAMINATION 12/26/2008 JASON ROJAS, ANNA MARIE A V72.3 GYNECOLOGICAL EXAMINATION 12/26/2008 KNAPP DO, HELEN K V72.3 GYNECOLOGICAL EXAMINATION 12/26/2008 JASON ROJAS, ANNA MARIE A V72.3 GYNECOLOGICAL EXAMINATION 12/26/2008 DORA DEL REAL DDS V72.3 GYNECOLOGICAL EXAMINATION 12/26/2008 JASON FLOOR COVERING CONTRACTOR, ANNA MARIE A V72.3 GYNECOLOGICAL EXAMINATION 12/26/2008 KNAPP DO, HELEN K V72.3 GYNECOLOGICAL EXAMINATION 12/26/2008 KNAPP DO, HELEN K V72.3 GYNECOLOGICAL EXAMINATION 12/26/2008 KNAPP DO, HELEN K V72.3 GYNECOLOGICAL EXAMINATION 12/26/2008 KNAPP DO, HELEN K V72.3 GYNECOLOGICAL EXAMINATION 12/26/2008 KNAPP DO, HELEN K V72.3 GYNECOLOGICAL EXAMINATION 12/26/2008 JASON FLOOR COVERING CONTRACTOR, ANNA MARIE A V72.3 GYNECOLOGICAL EXAMINATION 12/26/2008 KNAPP DO, HELEN K V72.3 GYNECOLOGICAL EXAMINATION 12/26/2008 KNAPP DO, HELEN K V72.3 GYNECOLOGICAL EXAMINATION 12/26/2008 KNAPP DO, HELEN K V72.3 GYNECOLOGICAL EXAMINATION 12/26/2008 JASON FLOOR COVERING CONTRACTOR, ANNA MARIE A V72.3 GYNECOLOGICAL EXAMINATION 12/26/2008 JASON FLOOR COVERING CONTRACTOR, ANNA MARIE A V72.3 GYNECOLOGICAL EXAMINATION 12/26/2008 JASON FLOOR COVERING CONTRACTOR, ANNA MARIE A V72.3 GYNECOLOGICAL EXAMINATION 12/26/2008 JASON FLOOR COVERING CONTRACTOR, ANNA MARIE A V72.3 GYNECOLOGICAL EXAMINATION 07/13/2009 PEOPLES ROLANDAS, NHI 785.6 Enlargement Of Lymph Nodes 07/13/2009 785.6 Enlargement Of Lymph Nodes 07/13/2009 785.6 Enlargement Of Lymph Nodes 07/13/2009 785.6 Enlargement Of Lymph Nodes 07/13/2009 785.6 Enlargement Of Lymph Nodes 07/13/2009 785.6 Enlargement Of Lymph Nodes 07/13/2009 785.6 Enlargement Of Lymph Nodes 07/13/2009 BARBARA ARAMBULA APRN 785.6 Enlargement Of Lymph Nodes 07/13/2009 KNAPP DO, HELEN K 785.6 Enlargement Of Lymph Nodes 07/13/2009 DANTE DEL REAL DDS 785.6 Enlargement Of Lymph Nodes 07/13/2009 JASON FLOOR COVERING CONTRACTOR, ANNA MARIE A 785.6 Enlargement Of Lymph Nodes 07/13/2009 JASON FLOOR COVERING CONTRACTOR, ANNA MARIE A 785.6 Enlargement Of Lymph Nodes 07/13/2009 JASON FLOOR COVERING CONTRACTOR, ANNA MARIE A 785.6 Enlargement Of Lymph Nodes 07/13/2009 DANTE DEL REAL DDS 785.6 Enlargement Of Lymph Nodes 07/13/2009 KNAPP DO, HELEN K 785.6 Enlargement Of Lymph Nodes 07/13/2009 KNAPP DO, HELEN K 785.6 Enlargement Of Lymph Nodes 07/13/2009 785.6 Enlargement Of Lymph Nodes 07/13/2009 KNAPP DO, HELEN K 785.6 Enlargement Of Lymph Nodes 07/13/2009 JASON FLOOR COVERING CONTRACTOR, ANNA MARIE A 785.6 Enlargement Of Lymph Nodes 07/13/2009 KNAPP DO, HELEN K 785.6 Enlargement Of Lymph Nodes 07/13/2009 JASON FLOOR COVERING CONTRACTOR, ANNA MARIE A 785.6 Enlargement Of Lymph Nodes 07/13/2009 DORA DEL REAL DDS J 785.6 Enlargement Of Lymph Nodes 07/13/2009 JASON FLOOR COVERING CONTRACTOR, ANNA MARIE A 785.6 Enlargement Of Lymph Nodes 07/13/2009 KNAPP DO, HELEN K 785.6 Enlargement Of Lymph Nodes 07/13/2009 KNAPP DO, HELEN K 785.6 Enlargement Of Lymph Nodes 07/13/2009 KNAPP DO, HELEN K 785.6 Enlargement Of Lymph Nodes 07/13/2009 KNAPP DO, HELEN K 785.6 Enlargement Of Lymph Nodes 07/13/2009 KNAPP DO, HELEN K 785.6 Enlargement Of Lymph Nodes 07/13/2009 JASON FLOOR COVERING CONTRACTOR, ANNA MARIE A 785.6 Enlargement Of Lymph Nodes 07/13/2009 KNAPP DO, HELEN K 785.6 Enlargement Of Lymph Nodes 07/13/2009 KNAPP DO, HELEN K 785.6 Enlargement Of Lymph Nodes 07/13/2009 KNAPP DO, HELEN K 785.6 Enlargement Of Lymph Nodes 07/13/2009 JASON FLOOR COVERING CONTRACTOR, ANNA MARIE A 785.6 Enlargement Of Lymph Nodes 07/13/2009 JASON FLOOR COVERING CONTRACTOR, ANNA MARIE A 785.6 Enlargement Of Lymph Nodes 07/13/2009 JASON FLOOR COVERING CONTRACTOR, ANNA MARIE A 785.6 Enlargement Of Lymph Nodes 07/13/2009 JASON FLOOR COVERING CONTRACTOR, ANNA MARIE A 785.6 Enlargement Of Lymph Nodes 09/24/2009 RICHELLE COREA, NHI 626.8 Dysfunctional Uterine Bleeding 09/24/2009 626.8 Dysfunctional Uterine Bleeding 09/24/2009 626.8 Dysfunctional Uterine Bleeding 09/24/2009 626.8 Dysfunctional Uterine Bleeding 09/24/2009 626.8 Dysfunctional Uterine Bleeding 09/24/2009 626.8 Dysfunctional Uterine Bleeding 09/24/2009 626.8 Dysfunctional Uterine Bleeding 09/24/2009 BARBARA ARAMBULA APRN 626.8 Dysfunctional Uterine Bleeding 09/24/2009 KNAPP DO, HELEN K 626.8 Dysfunctional Uterine Bleeding 09/24/2009 DANTE DEL REAL DDS 626.8 Dysfunctional Uterine Bleeding 09/24/2009 JASON FLOOR COVERING CONTRACTOR, ANNA MARIE A 626.8 Dysfunctional Uterine Bleeding 09/24/2009 JASON FLOOR COVERING CONTRACTOR, ANNA MARIE A 626.8 Dysfunctional Uterine Bleeding 09/24/2009 JASON FLOOR COVERING CONTRACTOR, ANNA MARIE A 626.8 Dysfunctional Uterine Bleeding 09/24/2009 NASIMA ORANTESSDANTE 626.8 Dysfunctional Uterine Bleeding 09/24/2009 KNAPP DO, HELEN K 626.8 Dysfunctional Uterine Bleeding 09/24/2009 KNAPP DO, HELEN K 626.8 Dysfunctional Uterine Bleeding 09/24/2009 626.8 Dysfunctional Uterine Bleeding 09/24/2009 KNAPP DO, HELEN K 626.8 Dysfunctional Uterine Bleeding 09/24/2009 JASON FLOOR COVERING CONTRACTOR, ANNA MARIE A 626.8 Dysfunctional Uterine Bleeding 09/24/2009 KNAPP DO, HELEN K 626.8 Dysfunctional Uterine Bleeding 09/24/2009 JASON FLOOR COVERING CONTRACTOR, ANNA MARIE A 626.8 Dysfunctional Uterine Bleeding 09/24/2009 DORA DEL REAL DDS 626.8 Dysfunctional Uterine Bleeding 09/24/2009 JASON FLOOR COVERING CONTRACTOR, ANNA MARIE A 626.8 Dysfunctional Uterine Bleeding 09/24/2009 KNAPP DO, HELEN K 626.8 Dysfunctional Uterine Bleeding 09/24/2009 KNAPP DO, HELEN K 626.8 Dysfunctional Uterine Bleeding 09/24/2009 KNAPP DO, HELEN K 626.8 Dysfunctional Uterine Bleeding 09/24/2009 KNAPP DO, HELEN K 626.8 Dysfunctional Uterine Bleeding 09/24/2009 KNAPP DO, HELEN K 626.8 Dysfunctional Uterine Bleeding 09/24/2009 JASON FLOOR COVERING CONTRACTOR, ANNA MARIE A 626.8 Dysfunctional Uterine Bleeding 09/24/2009 KNAPP DO, HELEN K 626.8 Dysfunctional Uterine Bleeding 09/24/2009 KNAPP DO, HELEN K 626.8 Dysfunctional Uterine Bleeding 09/24/2009 KNAPP DO, HELEN K 626.8 Dysfunctional Uterine Bleeding 09/24/2009 JASON FLOOR COVERING CONTRACTOR, ANNA MARIE A 626.8 Dysfunctional Uterine Bleeding 09/24/2009 JASON FLOOR COVERING CONTRACTOR, ANNA MARIE A 626.8 Dysfunctional Uterine Bleeding 09/24/2009 JASON FLOOR COVERING CONTRACTOR, ANNA MARIE A 626.8 Dysfunctional Uterine Bleeding 09/24/2009 JASON FLOOR COVERING CONTRACTOR, ANNA MARIE A 626.8 Dysfunctional Uterine Bleeding 03/26/2010 RICHELLE DDS, NHI 381.81 Dysfunction Of Eustachian Tube 03/26/2010 381.81 Dysfunction Of Eustachian Tube 03/26/2010 381.81 Dysfunction Of Eustachian Tube 03/26/2010 381.81 Dysfunction Of Eustachian Tube 03/26/2010 381.81 Dysfunction Of Eustachian Tube 03/26/2010 381.81 Dysfunction Of Eustachian Tube 03/26/2010 381.81 Dysfunction Of Eustachian Tube 03/26/2010 BARBARA ARAMBULA APRN 381.81 Dysfunction Of Eustachian Tube 03/26/2010 HELEN KNAPP DO K 381.81 Dysfunction Of Eustachian Tube 03/26/2010 DANTE DEL REAL DDS 381.81 Dysfunction Of Eustachian Tube 03/26/2010 JASON ROJAS ANNA MARIE A 381.81 Dysfunction Of Eustachian Tube 03/26/2010 OSVALDO GOMEZ APRNIDI A 381.81 Dysfunction Of Eustachian Tube 03/26/2010 JASON ROJAS ANNA MARIE A 381.81 Dysfunction Of Eustachian Tube 03/26/2010 DANTE DEL REAL DDS 381.81 Dysfunction Of Eustachian Tube 03/26/2010 ANDRES KNAPP DOA K 381.81 Dysfunction Of Eustachian Tube 03/26/2010 KNAPP ANDRES PERRYA K 381.81 Dysfunction Of Eustachian Tube 03/26/2010 381.81 Dysfunction Of Eustachian Tube 03/26/2010 KNAPP ANDRES PERRYA K 381.81 Dysfunction Of Eustachian Tube 03/26/2010 OSVALDO GOMEZ APRNIDI A 381.81 Dysfunction Of Eustachian Tube 03/26/2010 KNAPP ANDRES PERRYA K 381.81 Dysfunction Of Eustachian Tube 03/26/2010 JASON ROJAS ANNA MARIE A 381.81 Dysfunction Of Eustachian Tube 03/26/2010 DORA DEL REAL DDS 381.81 Dysfunction Of Eustachian Tube 03/26/2010 JASON ROJAS ANNA MARIE A 381.81 Dysfunction Of Eustachian Tube 03/26/2010 KNAPP DO HELEN K 381.81 Dysfunction Of Eustachian Tube 03/26/2010 KNAPP DO HELEN K 381.81 Dysfunction Of Eustachian Tube 03/26/2010 KNAPP DO HELEN K 381.81 Dysfunction Of Eustachian Tube 03/26/2010 KNAPP DO, HELEN K 381.81 Dysfunction Of Eustachian Tube 03/26/2010 KNAPP DO, HELEN K 381.81 Dysfunction Of Eustachian Tube 03/26/2010 JASON FLOOR COVERING CONTRACTOR, ANNA MARIE A 381.81 Dysfunction Of Eustachian Tube 03/26/2010 KNAPP DO, HELEN K 381.81 Dysfunction Of Eustachian Tube 03/26/2010 KNAPP DO, HELEN K 381.81 Dysfunction Of Eustachian Tube 03/26/2010 KNAPP DO, HELEN K 381.81 Dysfunction Of Eustachian Tube 03/26/2010 JASON FLOOR COVERING CONTRACTOR ANNA MARIE A 381.81 Dysfunction Of Eustachian Tube 03/26/2010 JASON FLOOR COVERING CONTRACTOR, ANNA MARIE A 381.81 Dysfunction Of Eustachian Tube 03/26/2010 JASON FLOOR COVERING CONTRACTOR ANNA MARIE A 381.81 Dysfunction Of Eustachian Tube 03/26/2010 JASON FLOOR COVERING CONTRACTOR ANNA MARIE A 381.81 Dysfunction Of Eustachian Tube 02/18/2011 RICHELLE COREA, NHI 465.9 Upper Respiratory Infection 02/18/2011 465.9 Upper Respiratory Infection 02/18/2011 465.9 Upper Respiratory Infection 02/18/2011 465.9 Upper Respiratory Infection 02/18/2011 465.9 Upper Respiratory Infection 02/18/2011 465.9 Upper Respiratory Infection 02/18/2011 465.9 Upper Respiratory Infection 02/18/2011 BARBARA ARAMBULA APRN 465.9 Upper Respiratory Infection 02/18/2011 KNAPP DO, HELEN K 465.9 Upper Respiratory Infection 02/18/2011 DANTE DEL REAL DDS 465.9 Upper Respiratory Infection 02/18/2011 JASON FLOOR COVERING CONTRACTOR, ANNA MARIE A 465.9 Upper Respiratory Infection 02/18/2011 JASON FLOOR COVERING CONTRACTOR, ANNA MARIE A 465.9 Upper Respiratory Infection 02/18/2011 JASON FLOOR COVERING CONTRACTOR, ANNA MARIE A 465.9 Upper Respiratory Infection 02/18/2011 DANTE DEL REAL DDS 465.9 Upper Respiratory Infection 02/18/2011 KNAPP DO, HELEN K 465.9 Upper Respiratory Infection 02/18/2011 KNAPP DO, HELEN K 465.9 Upper Respiratory Infection 02/18/2011 465.9 Upper Respiratory Infection 02/18/2011 KNAPP DO, HELEN K 465.9 Upper Respiratory Infection 02/18/2011 JASON FLOOR COVERING CONTRACTOR, ANNA MARIE A 465.9 Upper Respiratory Infection 02/18/2011 KNAPP DO, HELEN K 465.9 Upper Respiratory Infection 02/18/2011 JASON FLOOR COVERING CONTRACTOR, ANNA MARIE A 465.9 Upper Respiratory Infection 02/18/2011 WHITE DDS, DORA Mujica 465.9 Upper Respiratory Infection 02/18/2011 JASON FLOOR COVERING CONTRACTOR, ANNA MARIE A 465.9 Upper Respiratory Infection 02/18/2011 KNAPP DO, HELEN K 465.9 Upper Respiratory Infection 02/18/2011 KNAPP DO, HELEN K 465.9 Upper Respiratory Infection 02/18/2011 KNAPP DO, HELEN K 465.9 Upper Respiratory Infection 02/18/2011 KNAPP DO, HELEN K 465.9 Upper Respiratory Infection 02/18/2011 KNAPP DO, HELEN K 465.9 Upper Respiratory Infection 02/18/2011 JASON FLOOR COVERING CONTRACTOR, ANNA MARIE A 465.9 Upper Respiratory Infection 02/18/2011 KNAPP DO, HELEN K 465.9 Upper Respiratory Infection 02/18/2011 KNAPP DO, HELEN K 465.9 Upper Respiratory Infection 02/18/2011 KNAPP DO, HELEN K 465.9 Upper Respiratory Infection 02/18/2011 JASON FLOOR COVERING CONTRACTOR, ANNA MARIE A 465.9 Upper Respiratory Infection 02/18/2011 JASON FLOOR COVERING CONTRACTOR, ANNA MARIE A 465.9 Upper Respiratory Infection 02/18/2011 JASON FLOOR COVERING CONTRACTOR, ANNA MARIE A 465.9 Upper Respiratory Infection 02/18/2011 JASON FLOOR COVERING CONTRACTOR, ANNA MARIE A 465.9 Upper Respiratory Infection 04/01/2011 [place]OPLES DDS, NHI V18.0 Fam Hx Diabetes Mellitus 04/01/2011 V18.0 Fam Hx Diabetes Mellitus 04/01/2011 V18.0 Fam Hx Diabetes Mellitus 04/01/2011 V18.0 Fam Hx Diabetes Mellitus 04/01/2011 V18.0 Fam Hx Diabetes Mellitus 04/01/2011 V18.0 Fam Hx Diabetes Mellitus 04/01/2011 V18.0 Fam Hx Diabetes Mellitus 04/01/2011 BARBARA ARAMBULA APRN V18.0 Fam Hx Diabetes Mellitus 04/01/2011 KNAPP DO, HELEN K V18.0 Fam Hx Diabetes Mellitus 04/01/2011 NASIMA DDSDANTE V18.0 Fam Hx Diabetes Mellitus 04/01/2011 JASON FLOOR COVERING CONTRACTOR, ANNA MARIE A V18.0 Fam Hx Diabetes Mellitus 04/01/2011 JASON FLOOR COVERING CONTRACTOR, ANNA MARIE A V18.0 Fam Hx Diabetes Mellitus 04/01/2011 JASON FLOOR COVERING CONTRACTOR, ANNA MARIE A V18.0 Fam Hx Diabetes Mellitus 04/01/2011 WHITE DDS, DANTE Jose Antonio V18.0 Fam Hx Diabetes Mellitus 04/01/2011 KNAPP DO, HELEN K V18.0 Fam Hx Diabetes Mellitus 04/01/2011 KNAPP DO, HELEN K V18.0 Fam Hx Diabetes Mellitus 04/01/2011 V18.0 Fam Hx Diabetes Mellitus 04/01/2011 KNAPP DO, HELEN K V18.0 Fam Hx Diabetes Mellitus 04/01/2011 JASON FLOOR COVERING CONTRACTOR, ANNA MARIE A V18.0 Fam Hx Diabetes Mellitus 04/01/2011 KNAPP DO, HELEN K V18.0 Fam Hx Diabetes Mellitus 04/01/2011 [employer]ON [employer], ANNA MARIE A V18.0 Fam Hx Diabetes Mellitus 04/01/2011 WHITE DDS, DORA Mujica V18.0 Fam Hx Diabetes Mellitus 04/01/2011 [employer]ON [employer]OR, ANNA MARIE A V18.0 Fam Hx Diabetes Mellitus 04/01/2011 KNAPP DO, HELEN K V18.0 Fam Hx Diabetes Mellitus 04/01/2011 KNAPP DO, HELEN K V18.0 Fam Hx Diabetes Mellitus 04/01/2011 KNAPP DO, HELEN K V18.0 Fam Hx Diabetes Mellitus 04/01/2011 KNAPP DO, HELEN K V18.0 Fam Hx Diabetes Mellitus 04/01/2011 KNAPP DO, HELEN K V18.0 Fam Hx Diabetes Mellitus 04/01/2011 J[employer]ON [employer]OR, ANNA MARIE A V18.0 Fam Hx Diabetes Mellitus 04/01/2011 KNAPP DO, HELEN K V18.0 Fam Hx Diabetes Mellitus 04/01/2011 KNAPP DO, HELEN K V18.0 Fam Hx Diabetes Mellitus 04/01/2011 KNAPP DO, HELEN K V18.0 Fam Hx Diabetes Mellitus 04/01/2011 J[employer]ON [employer]OR, ANNA MARIE A V18.0 Fam Hx Diabetes Mellitus 04/01/2011 J[employer]ON [employer]OR, ANNA MARIE A V18.0 Fam Hx Diabetes Mellitus 04/01/2011 J[employer]ON [employer]OR, ANNA MARIE A V18.0 Fam Hx Diabetes Mellitus 04/01/2011 J[employer]OR, ANN AMARIE A V18.0 Fam Hx Diabetes Mellitus 04/24/2011 [place] DDS, NHI 381.01 Otitis Media, Acute Serous 04/24/2011 381.01 Otitis Media, Acute Serous 04/24/2011 381.01 Otitis Media, Acute Serous 04/24/2011 381.01 Otitis Media, Acute Serous 04/24/2011 381.01 Otitis Media, Acute Serous 04/24/2011 381.01 Otitis Media, Acute Serous 04/24/2011 381.01 Otitis Media, Acute Serous 04/24/2011 BARBARA ARAMBULA APRN 381.01 Otitis Media, Acute Serous 04/24/2011 KNAPP DO, HELEN K 381.01 Otitis Media, Acute Serous 04/24/2011 WHITE DDS, DANTE Brady 381.01 Otitis Media, Acute Serous 04/24/2011 [employer]OR, ANNA MARIE A 381.01 Otitis Media, Acute Serous 04/24/2011 [employer]OR, ANNA MARIE A 381.01 Otitis Media, Acute Serous 04/24/2011 J[employer]ON [employer]OR, ANNA MARIE A 381.01 Otitis Media, Acute Serous 04/24/2011 WHITE DDS, DANTE Brady 381.01 Otitis Media, Acute Serous 04/24/2011 KNAPP DO, HELEN K 381.01 Otitis Media, Acute Serous 04/24/2011 KNAPP DO, HELEN K 381.01 Otitis Media, Acute Serous 04/24/2011 381.01 Otitis Media, Acute Serous 04/24/2011 KNAPP DO, HELEN K 381.01 Otitis Media, Acute Serous 04/24/2011 [employer], ANNA MARIE A 381.01 Otitis Media, Acute Serous 04/24/2011 KNAPP DO, HELEN K 381.01 Otitis Media, Acute Serous 04/24/2011 [employer], ANNA MARIE A 381.01 Otitis Media, Acute Serous 04/24/2011 WHITE DDS, DORA Mujica 381.01 Otitis Media, Acute Serous 04/24/2011 JASON FLOOR COVERING CONTRACTOR, ANNA MARIE A 381.01 Otitis Media, Acute Serous 04/24/2011 KNAPP DO, HELEN K 381.01 Otitis Media, Acute Serous 04/24/2011 KNAPP DO, HELEN K 381.01 Otitis Media, Acute Serous 04/24/2011 KNAPP DO, HELEN K 381.01 Otitis Media, Acute Serous 04/24/2011 KNAPP DO, HELEN K 381.01 Otitis Media, Acute Serous 04/24/2011 KNAPP DO, HELEN K 381.01 Otitis Media, Acute Serous 04/24/2011 JASON FLOOR COVERING CONTRACTOR, ANNA AMRIE A 381.01 Otitis Media, Acute Serous 04/24/2011 KNAPP DO, HELEN K 381.01 Otitis Media, Acute Serous 04/24/2011 KNAPP DO, HELEN K 381.01 Otitis Media, Acute Serous 04/24/2011 KNAPP DO, HELEN K 381.01 Otitis Media, Acute Serous 04/24/2011 JASON FLOOR COVERING CONTRACTOR, ANNA MARIE A 381.01 Otitis Media, Acute Serous 04/24/2011 JASON FLOOR COVERING CONTRACTOR, ANNA MARIE A 381.01 Otitis Media, Acute Serous 04/24/2011 JASON FLOOR COVERING CONTRACTOR, ANNA MARIE A 381.01 Otitis Media, Acute Serous 04/24/2011 JASON FLOOR COVERING CONTRACTOR, ANNA MARIE A 381.01 Otitis Media, Acute Serous 08/27/2011 PEOPLES DDS, NHI 780.79 OTHER MALAISE AND FATIGUE 08/27/2011 780.79 OTHER MALAISE AND FATIGUE 08/27/2011 780.79 OTHER MALAISE AND FATIGUE 08/27/2011 780.79 OTHER MALAISE AND FATIGUE 08/27/2011 780.79 OTHER MALAISE AND FATIGUE 08/27/2011 780.79 OTHER MALAISE AND FATIGUE 08/27/2011 780.79 OTHER MALAISE AND FATIGUE 08/27/2011 BARBARA ARAMBULA APRN 780.79 OTHER MALAISE AND FATIGUE 08/27/2011 KNAPP DO, HELEN K 780.79 OTHER MALAISE AND FATIGUE 08/27/2011 DANTE DEL REAL DDS 780.79 OTHER MALAISE AND FATIGUE 08/27/2011 JASON FLOOR COVERING CONTRACTOR, ANNA MARIE A 780.79 OTHER MALAISE AND FATIGUE 08/27/2011 JASON FLOOR COVERING CONTRACTOR, ANNA MARIE A 780.79 OTHER MALAISE AND FATIGUE 08/27/2011 JASON FLOOR COVERING CONTRACTOR, ANNA MARIE A 780.79 OTHER MALAISE AND FATIGUE 08/27/2011 DANTE DEL REAL DDS 780.79 OTHER MALAISE AND FATIGUE 08/27/2011 KNAPP DO, HELEN K 780.79 OTHER MALAISE AND FATIGUE 08/27/2011 KNAPP DO, HELEN K 780.79 OTHER MALAISE AND FATIGUE 08/27/2011 780.79 OTHER MALAISE AND FATIGUE 08/27/2011 KNAPP DO, HELEN K 780.79 OTHER MALAISE AND FATIGUE 08/27/2011 JASON BOB, ANNA MARIE A 780.79 OTHER MALAISE AND FATIGUE 08/27/2011 KNAPP DO, HELEN K 780.79 OTHER MALAISE AND FATIGUE 08/27/2011 JASON ROJAS, ANNA MARIE A 780.79 OTHER MALAISE AND FATIGUE 08/27/2011 NASIMA ORANTESS, DORA Mujica 780.79 OTHER MALAISE AND FATIGUE 08/27/2011 JASON FLOOR COVERING CONTRACTOR, ANNA MARIE A 780.79 OTHER MALAISE AND FATIGUE 08/27/2011 KNAPP DO, HELEN K 780.79 OTHER MALAISE AND FATIGUE 08/27/2011 KNAPP DO, HELEN K 780.79 OTHER MALAISE AND FATIGUE 08/27/2011 KNAPP DO, HELEN K 780.79 OTHER MALAISE AND FATIGUE 08/27/2011 KNAPP DO, HELEN K 780.79 OTHER MALAISE AND FATIGUE 08/27/2011 KNAPP DO, HELEN K 780.79 OTHER MALAISE AND FATIGUE 08/27/2011 JASON ROJAS, ANNA MARIE A 780.79 OTHER MALAISE AND FATIGUE 08/27/2011 KNAPP DO, HELEN K 780.79 OTHER MALAISE AND FATIGUE 08/27/2011 KNAPP DO, HELEN K 780.79 OTHER MALAISE AND FATIGUE 08/27/2011 KNAPP DO, HELEN K 780.79 OTHER MALAISE AND FATIGUE 08/27/2011 JASON ROJAS, ANNA MARIE A 780.79 OTHER MALAISE AND FATIGUE 08/27/2011 JASON ROJAS, ANNA MARIE A 780.79 OTHER MALAISE AND FATIGUE 08/27/2011 JASON FLOOR COVERING CONTRACTOR, ANNA MARIE A 780.79 OTHER MALAISE AND FATIGUE 08/27/2011 JASON FLOOR COVERING CONTRACTOR, ANNA MARIE A 780.79 OTHER MALAISE AND FATIGUE 01/09/2012 PEOPLES DDS, NHI 535.50 GASTRITIS UNSPEC 01/09/2012 PEOPLES DDS, NHI 783.1 WEIGHT GAIN ABNORMAL 01/09/2012 PEOPLES DDS, NHI 787.02 Nausea Alone 01/09/2012 PEOPLES DDS, NHI V65.42 COUNSELING - SMOKING CESSATION 01/09/2012 535.50 GASTRITIS UNSPEC 01/09/2012 783.1 WEIGHT GAIN ABNORMAL 01/09/2012 787.02 Nausea Alone 01/09/2012 V65.42 COUNSELING - SMOKING CESSATION 01/09/2012 535.50 GASTRITIS UNSPEC 01/09/2012 783.1 WEIGHT GAIN ABNORMAL 01/09/2012 787.02 Nausea Alone 01/09/2012 V65.42 COUNSELING - SMOKING CESSATION 01/09/2012 535.50 GASTRITIS UNSPEC 01/09/2012 783.1 WEIGHT GAIN ABNORMAL 01/09/2012 787.02 Nausea Alone 01/09/2012 V65.42 COUNSELING - SMOKING CESSATION 01/09/2012 535.50 GASTRITIS UNSPEC 01/09/2012 783.1 WEIGHT GAIN ABNORMAL 01/09/2012 787.02 Nausea Alone 01/09/2012 V65.42 COUNSELING - SMOKING CESSATION 01/09/2012 535.50 GASTRITIS UNSPEC 01/09/2012 783.1 WEIGHT GAIN ABNORMAL 01/09/2012 787.02 Nausea Alone 01/09/2012 V65.42 COUNSELING - SMOKING CESSATION 01/09/2012 535.50 GASTRITIS UNSPEC 01/09/2012 783.1 WEIGHT GAIN ABNORMAL 01/09/2012 787.02 Nausea Alone 01/09/2012 V65.42 COUNSELING - SMOKING CESSATION 01/09/2012 BARBARA ARAMBULA APRN 535.50 GASTRITIS UNSPEC 01/09/2012 BARBARA ARAMBULA APRN 783.1 WEIGHT GAIN ABNORMAL 01/09/2012 BARBARA ARAMBULA APRN 787.02 Nausea Alone 01/09/2012 BARBARA ARAMBULA APRN V65.42 COUNSELING - SMOKING CESSATION 01/09/2012 ANDRES KNAPP DOA K 535.50 GASTRITIS UNSPEC 01/09/2012 KNAPP DO HELEN K 783.1 WEIGHT GAIN ABNORMAL 01/09/2012 KNAPP DO, HELEN K 787.02 Nausea Alone 01/09/2012 KNAPP DO, HELEN K V65.42 COUNSELING - SMOKING CESSATION 01/09/2012 DANTE DEL REAL DDS 535.50 GASTRITIS UNSPEC 01/09/2012 DANTE DEL REAL DDS 783.1 WEIGHT GAIN ABNORMAL 01/09/2012 DANTE DEL REAL DDS 787.02 Nausea Alone 01/09/2012 DANTE DEL REAL DDS V65.42 COUNSELING - SMOKING CESSATION 01/09/2012 ANNA MARIE GOMEZ APRN 535.50 GASTRITIS UNSPEC 01/09/2012 ANNA MARIE GOMEZ APRN A 783.1 WEIGHT GAIN ABNORMAL 01/09/2012 ANNA MARIE GOMEZ APRN A 787.02 Nausea Alone 01/09/2012 OSVALDO GOMEZ APRNIDI A V65.42 COUNSELING - SMOKING CESSATION 01/09/2012 ANNA MARIE GOMEZ APRN A 535.50 GASTRITIS UNSPEC 01/09/2012 OSVALDO GOMEZ APRNIDI A 783.1 WEIGHT GAIN ABNORMAL 01/09/2012 OSVALDO GOMEZ APRNIDI A 787.02 Nausea Alone 01/09/2012 OSVALDO GOMEZ APRNIDI A V65.42 COUNSELING - SMOKING CESSATION 01/09/2012 ANNA MARIE GOMEZ APRN A 535.50 GASTRITIS UNSPEC 01/09/2012 OSVALDO GOMEZ APRNIDI A 783.1 WEIGHT GAIN ABNORMAL 01/09/2012 OSVALDO GOMEZ APRNIDI A 787.02 Nausea Alone 01/09/2012 OSVALDO GOMEZ APRNIDI A V65.42 COUNSELING - SMOKING CESSATION 01/09/2012 WHITE DDS, DANTE D 535.50 GASTRITIS UNSPEC 01/09/2012 WHITE DDS, DANTE D 783.1 WEIGHT GAIN ABNORMAL 01/09/2012 WHITE DDS, DANTE D 787.02 Nausea Alone 01/09/2012 WHITE DDSDANTE D V65.42 COUNSELING - SMOKING CESSATION 01/09/2012 KNAPP DO, HELEN K 535.50 GASTRITIS UNSPEC 01/09/2012 KNAPP DO, HELEN K 783.1 WEIGHT GAIN ABNORMAL 01/09/2012 KNAPP DO, HELEN K 787.02 NAUSEA ALONE 01/09/2012 KNAPP DO, HELEN K V65.42 COUNSELING - SMOKING CESSATION 01/09/2012 KNAPP DO, HELEN K 535.50 GASTRITIS UNSPEC 01/09/2012 KNAPP DO, HELEN K 783.1 WEIGHT GAIN ABNORMAL 01/09/2012 KNAPP DO, HELEN K 787.02 NAUSEA ALONE 01/09/2012 KNAPP DO, HELEN K V65.42 COUNSELING - SMOKING CESSATION 01/09/2012 535.50 GASTRITIS UNSPEC 01/09/2012 783.1 WEIGHT GAIN ABNORMAL 01/09/2012 787.02 NAUSEA ALONE 01/09/2012 V65.42 COUNSELING - SMOKING CESSATION 01/09/2012 KNAPP DO, HELEN K 535.50 GASTRITIS UNSPEC 01/09/2012 KNAPP DO, HELEN K 783.1 WEIGHT GAIN ABNORMAL 01/09/2012 KNAPP DO HELEN K 787.02 NAUSEA ALONE 01/09/2012 KNAPP DO HELEN K V65.42 COUNSELING - SMOKING CESSATION 01/09/2012 ANNA MARIE GOMEZ APRN A 535.50 GASTRITIS UNSPEC 01/09/2012 OSVALDO GOMEZ APRNIDI A 783.1 WEIGHT GAIN ABNORMAL 01/09/2012 OSVALDO GOMEZ APRNIDI A 787.02 NAUSEA ALONE 01/09/2012 OSVALDO GOMEZ APRNIDI A V65.42 COUNSELING - SMOKING CESSATION 01/09/2012 ARIA PERRY HELEN K 535.50 GASTRITIS UNSPEC 01/09/2012 KNAPP DO HELEN K 783.1 WEIGHT GAIN ABNORMAL 01/09/2012 KNAPP DO HELEN K 787.02 NAUSEA ALONE 01/09/2012 KNAPP DO HELEN K V65.42 COUNSELING - SMOKING CESSATION 01/09/2012 OSVALDO GOMEZ APRNIDI A 535.50 GASTRITIS UNSPEC 01/09/2012 OSVALDO GOMEZ APRNIDI A 783.1 WEIGHT GAIN ABNORMAL 01/09/2012 OSVALDO GOMEZ APRNIDI A 787.02 NAUSEA ALONE 01/09/2012 OSVALDO GOMEZ APRNIDI A V65.42 COUNSELING - SMOKING CESSATION 01/09/2012 WHITE DDS, DORA J 535.50 GASTRITIS UNSPEC 01/09/2012 WHITE DDS, DORA J 783.1 WEIGHT GAIN ABNORMAL 01/09/2012 WHITE DDS, DORA J 787.02 NAUSEA ALONE 01/09/2012 WHITE DDS, DORA J V65.42 COUNSELING - SMOKING CESSATION 01/09/2012 OSVALDO GOMEZ APRNIDI A 535.50 GASTRITIS UNSPEC 01/09/2012 OSVALDO GOMEZ APRNIDI A 783.1 WEIGHT GAIN ABNORMAL 01/09/2012 OSVALDO GOMEZ APRNIDI A 787.02 NAUSEA ALONE 01/09/2012 OSVALDO GOMEZ APRNIDI A V65.42 COUNSELING - SMOKING CESSATION 01/09/2012 KNAPP DO HELEN K 535.50 GASTRITIS UNSPEC 01/09/2012 KNAPP DO HELEN K 783.1 WEIGHT GAIN ABNORMAL 01/09/2012 KNAPP DO HELEN K 787.02 NAUSEA ALONE 01/09/2012 KNAPP DO, HELEN K V65.42 COUNSELING - SMOKING CESSATION 01/09/2012 KNAPP DO, HELEN K 535.50 GASTRITIS UNSPEC 01/09/2012 KNAPP DO, HELEN K 783.1 WEIGHT GAIN ABNORMAL 01/09/2012 KNAPP DO, HELEN K 787.02 NAUSEA ALONE 01/09/2012 KNAPP DO, HELEN K V65.42 COUNSELING - SMOKING CESSATION 01/09/2012 KNAPP DO, HELEN K 535.50 GASTRITIS UNSPEC 01/09/2012 KNAPP DO, HELEN K 783.1 WEIGHT GAIN ABNORMAL 01/09/2012 KNAPP DO, HELEN K 787.02 NAUSEA ALONE 01/09/2012 KNAPP DO, HELEN K V65.42 COUNSELING - SMOKING CESSATION 01/09/2012 KNAPP DO, HELEN K 535.50 GASTRITIS UNSPEC 01/09/2012 KNAPP DO, HELEN K 783.1 WEIGHT GAIN ABNORMAL 01/09/2012 KNAPP DO, HELEN K 787.02 NAUSEA ALONE 01/09/2012 KNAPP DO, HELEN K V65.42 COUNSELING - SMOKING CESSATION 01/09/2012 KNAPP DO, HELEN K 535.50 GASTRITIS UNSPEC 01/09/2012 KNAPP DO, HELEN K 783.1 WEIGHT GAIN ABNORMAL 01/09/2012 KNAPP DO, HELEN K 787.02 NAUSEA ALONE 01/09/2012 KNAPP DO, HELEN K V65.42 COUNSELING - SMOKING CESSATION 01/09/2012 JASON FLOOR COVERING CONTRACTOR, ANNA MARIE A 535.50 GASTRITIS UNSPEC 01/09/2012 JASON FLOOR COVERING CONTRACTOR, ANNA MARIE A 783.1 WEIGHT GAIN ABNORMAL 01/09/2012 JASON FLOOR COVERING CONTRACTOR, ANNA MARIE A 787.02 NAUSEA ALONE 01/09/2012 JASON FLOOR COVERING CONTRACTOR, ANNA MARIE A V65.42 COUNSELING - SMOKING CESSATION 01/09/2012 KNAPP DO, HELEN K 535.50 GASTRITIS UNSPEC 01/09/2012 KNAPP DO, HELEN K 783.1 WEIGHT GAIN ABNORMAL 01/09/2012 KNAPP DO, HELEN K 787.02 NAUSEA ALONE 01/09/2012 KNAPP DO, HELEN K V65.42 COUNSELING - SMOKING CESSATION 01/09/2012 KNAPP DO, HELEN K 535.50 GASTRITIS UNSPEC 01/09/2012 KNAPP DO, HELEN K 783.1 WEIGHT GAIN ABNORMAL 01/09/2012 KNAPP DO, HELEN K 787.02 NAUSEA ALONE 01/09/2012 KNAPP DO, HELEN K V65.42 COUNSELING - SMOKING CESSATION 01/09/2012 ARIA PERRY HELEN K 535.50 GASTRITIS UNSPEC 01/09/2012 ARIA PERRY HELEN K 783.1 WEIGHT GAIN ABNORMAL 01/09/2012 ANDRES KNAPP DOA K 787.02 NAUSEA ALONE 01/09/2012 KNAPP DO HELEN K V65.42 COUNSELING - SMOKING CESSATION 01/09/2012 OSVALDO GOMEZ APRNIDI A 535.50 GASTRITIS UNSPEC 01/09/2012 JASON ROJAS ANNA MARIE A 783.1 WEIGHT GAIN ABNORMAL 01/09/2012 JASON ROJAS ANNA MARIE A 787.02 NAUSEA ALONE 01/09/2012 JASON ROJAS ANNA MARIE A V65.42 COUNSELING - SMOKING CESSATION 01/09/2012 OSVALDO GOMEZ APRNIDI A 535.50 GASTRITIS UNSPEC 01/09/2012 JASON ROJAS ANNA MARIE A 783.1 WEIGHT GAIN ABNORMAL 01/09/2012 OSVALDO GOMEZ APRNIDI A 787.02 NAUSEA ALONE 01/09/2012 JASON ROJAS ANNA MARIE A V65.42 COUNSELING - SMOKING CESSATION 01/09/2012 JASON ROJAS ANNA MARIE A 535.50 GASTRITIS UNSPEC 01/09/2012 JASON ROJAS ANNA MARIE A 783.1 WEIGHT GAIN ABNORMAL 01/09/2012 OSVALDO GOMEZ APRNIDI A 787.02 NAUSEA ALONE 01/09/2012 JASON ROJAS ANNA MARIE A V65.42 COUNSELING - SMOKING CESSATION 01/09/2012 OSVALDO GOMEZ APRNIDI A 535.50 GASTRITIS UNSPEC 01/09/2012 JASON ROJAS ANNA MARIE A 783.1 WEIGHT GAIN ABNORMAL 01/09/2012 JASON ROJAS ANNA MARIE A 787.02 NAUSEA ALONE 01/09/2012 JASON ROJAS ANNA MARIE A V65.42 COUNSELING - SMOKING CESSATION 07/22/2012 PEOPLES DDS, NHI 381.01 ACUTE SEROUS OTITIS MEDIA 07/22/2012 PEOPLES DDS, NHI V15.09 PERSONAL HISTORY OF OTHER ALLERGY OTHER THAN TO MEDICINAL AGENTS 07/22/2012 381.01 ACUTE SEROUS OTITIS MEDIA 07/22/2012 V15.09 PERSONAL HISTORY OF OTHER ALLERGY OTHER THAN TO MEDICINAL AGENTS 07/22/2012 381.01 ACUTE SEROUS OTITIS MEDIA 07/22/2012 V15.09 PERSONAL HISTORY OF OTHER ALLERGY OTHER THAN TO MEDICINAL AGENTS 07/22/2012 381.01 ACUTE SEROUS OTITIS MEDIA 07/22/2012 V15.09 PERSONAL HISTORY OF OTHER ALLERGY OTHER THAN TO MEDICINAL AGENTS 07/22/2012 381.01 ACUTE SEROUS OTITIS MEDIA 07/22/2012 V15.09 PERSONAL HISTORY OF OTHER ALLERGY OTHER THAN TO MEDICINAL AGENTS 07/22/2012 381.01 ACUTE SEROUS OTITIS MEDIA 07/22/2012 V15.09 PERSONAL HISTORY OF OTHER ALLERGY OTHER THAN TO MEDICINAL AGENTS 07/22/2012 381.01 ACUTE SEROUS OTITIS MEDIA 07/22/2012 V15.09 PERSONAL HISTORY OF OTHER ALLERGY OTHER THAN TO MEDICINAL AGENTS 07/22/2012 BARBARA ARAMBULA APRN 381.01 ACUTE SEROUS OTITIS MEDIA 07/22/2012 BARBARA ARAMBULA APRN V15.09 PERSONAL HISTORY OF OTHER ALLERGY OTHER THAN TO MEDICINAL AGENTS 07/22/2012 HELEN KNAPP DO K 381.01 ACUTE SEROUS OTITIS MEDIA 07/22/2012 HELEN KNAPP DO K V15.09 PERSONAL HISTORY OF OTHER ALLERGY OTHER THAN TO MEDICINAL AGENTS 07/22/2012 WHITE DDS, DANTE D 381.01 ACUTE SEROUS OTITIS MEDIA 07/22/2012 WHITE DDS, DANTE D V15.09 PERSONAL HISTORY OF OTHER ALLERGY OTHER THAN TO MEDICINAL AGENTS 07/22/2012 JASON ROJAS ANNA MARIE A 381.01 ACUTE SEROUS OTITIS MEDIA 07/22/2012 JASON ROJAS ANNA MARIE A V15.09 PERSONAL HISTORY OF OTHER ALLERGY OTHER THAN TO MEDICINAL AGENTS 07/22/2012 JASON ROJAS ANNA MARIE A 381.01 ACUTE SEROUS OTITIS MEDIA 07/22/2012 JASON ROJAS ANNA MARIE A V15.09 PERSONAL HISTORY OF OTHER ALLERGY OTHER THAN TO MEDICINAL AGENTS 07/22/2012 JASON ROJAS ANNA MARIE A 381.01 ACUTE SEROUS OTITIS MEDIA 07/22/2012 JASON ROJAS ANNA MARIE A V15.09 PERSONAL HISTORY OF OTHER ALLERGY OTHER THAN TO MEDICINAL AGENTS 07/22/2012 WHITE DDS, DANTE D 381.01 ACUTE SEROUS OTITIS MEDIA 07/22/2012 WHITE DDS, DANTE D V15.09 PERSONAL HISTORY OF OTHER ALLERGY OTHER THAN TO MEDICINAL AGENTS 07/22/2012 ANDRES KNAPP DOA K 381.01 ACUTE SEROUS OTITIS MEDIA 07/22/2012 ANDRES KNAPP DOA K V15.09 PERSONAL HISTORY OF OTHER ALLERGY OTHER THAN TO MEDICINAL AGENTS 07/22/2012 KNAPP DO HELEN K 381.01 ACUTE SEROUS OTITIS MEDIA 07/22/2012 KNAPP DO HELEN K V15.09 PERSONAL HISTORY OF OTHER ALLERGY OTHER THAN TO MEDICINAL AGENTS 07/22/2012 381.01 ACUTE SEROUS OTITIS MEDIA 07/22/2012 V15.09 PERSONAL HISTORY OF OTHER ALLERGY OTHER THAN TO MEDICINAL AGENTS 07/22/2012 KNAPP DO HELEN K 381.01 ACUTE SEROUS OTITIS MEDIA 07/22/2012 KNAPP DO HELEN K V15.09 PERSONAL HISTORY OF OTHER ALLERGY OTHER THAN TO MEDICINAL AGENTS 07/22/2012 JASONOSVALDO Olmos APRNIDI A 381.01 ACUTE SEROUS OTITIS MEDIA 07/22/2012 JASONOSVALDO Olmos APRNIDI A V15.09 PERSONAL HISTORY OF OTHER ALLERGY OTHER THAN TO MEDICINAL AGENTS 07/22/2012 ARIA PERRY HELEN K 381.01 ACUTE SEROUS OTITIS MEDIA 07/22/2012 ARIA PERRY HELEN K V15.09 PERSONAL HISTORY OF OTHER ALLERGY OTHER THAN TO MEDICINAL AGENTS 07/22/2012 OSVALDO GOMEZ APRNIDI A 381.01 ACUTE SEROUS OTITIS MEDIA 07/22/2012 JASON ROJAS ANNA MARIE A V15.09 PERSONAL HISTORY OF OTHER ALLERGY OTHER THAN TO MEDICINAL AGENTS 07/22/2012 WHITE DDS, DORA J 381.01 ACUTE SEROUS OTITIS MEDIA 07/22/2012 WHITE DDS, DORA J V15.09 PERSONAL HISTORY OF OTHER ALLERGY OTHER THAN TO MEDICINAL AGENTS 07/22/2012 OSVALDO GOMEZ APRNIDI A 381.01 ACUTE SEROUS OTITIS MEDIA 07/22/2012 OSVALDO GOMEZ APRNIDI A V15.09 PERSONAL HISTORY OF OTHER ALLERGY OTHER THAN TO MEDICINAL AGENTS 07/22/2012 KNAPP DO HELEN K 381.01 ACUTE SEROUS OTITIS MEDIA 07/22/2012 KNAPP DO HELEN K V15.09 PERSONAL HISTORY OF OTHER ALLERGY OTHER THAN TO MEDICINAL AGENTS 07/22/2012 KNAPP DO HELEN K 381.01 ACUTE SEROUS OTITIS MEDIA 07/22/2012 KNAPP DO HELEN K V15.09 PERSONAL HISTORY OF OTHER ALLERGY OTHER THAN TO MEDICINAL AGENTS 07/22/2012 KNAPP DO HELEN K 381.01 ACUTE SEROUS OTITIS MEDIA 07/22/2012 KNAPP DO HELEN K V15.09 PERSONAL HISTORY OF OTHER ALLERGY OTHER THAN TO MEDICINAL AGENTS 07/22/2012 KNAPP DO, HELEN K 381.01 ACUTE SEROUS OTITIS MEDIA 07/22/2012 KNAPP DO, HELEN K V15.09 PERSONAL HISTORY OF OTHER ALLERGY OTHER THAN TO MEDICINAL AGENTS 07/22/2012 KNAPP DO, HELEN K 381.01 ACUTE SEROUS OTITIS MEDIA 07/22/2012 KNAPP DO, HELEN K V15.09 PERSONAL HISTORY OF OTHER ALLERGY OTHER THAN TO MEDICINAL AGENTS 07/22/2012 OSVALDO GOMEZ APRNIDI A 381.01 ACUTE SEROUS OTITIS MEDIA 07/22/2012 OSVALDO GOMEZ APRNIDI A V15.09 PERSONAL HISTORY OF OTHER ALLERGY OTHER THAN TO MEDICINAL AGENTS 07/22/2012 KNAPP DO, HELEN K 381.01 ACUTE SEROUS OTITIS MEDIA 07/22/2012 KNAPP DO, HELEN K V15.09 PERSONAL HISTORY OF OTHER ALLERGY OTHER THAN TO MEDICINAL AGENTS 07/22/2012 KNAPP DO, HELEN K 381.01 ACUTE SEROUS OTITIS MEDIA 07/22/2012 KNAPP DO HELEN K V15.09 PERSONAL HISTORY OF OTHER ALLERGY OTHER THAN TO MEDICINAL AGENTS 07/22/2012 KNAPP DO HELEN K 381.01 ACUTE SEROUS OTITIS MEDIA 07/22/2012 KNAPP DO HELEN K V15.09 PERSONAL HISTORY OF OTHER ALLERGY OTHER THAN TO MEDICINAL AGENTS 07/22/2012 OSVALDO GOMEZ APRNIDI A 381.01 ACUTE SEROUS OTITIS MEDIA 07/22/2012 OSVALDO GOMEZ APRNIDI A V15.09 PERSONAL HISTORY OF OTHER ALLERGY OTHER THAN TO MEDICINAL AGENTS 07/22/2012 OSVALDO GOMEZ APRNIDI A 381.01 ACUTE SEROUS OTITIS MEDIA 07/22/2012 OSVALDO GOMEZ APRNIDI A V15.09 PERSONAL HISTORY OF OTHER ALLERGY OTHER THAN TO MEDICINAL AGENTS 07/22/2012 OSVALDO GOMEZ APRNIDI A 381.01 ACUTE SEROUS OTITIS MEDIA 07/22/2012 OSVALDO GOMEZ APRNIDI A V15.09 PERSONAL HISTORY OF OTHER ALLERGY OTHER THAN TO MEDICINAL AGENTS 07/22/2012 OSVALDO GOMEZ APRNIDI A 381.01 ACUTE SEROUS OTITIS MEDIA 07/22/2012 OSVALDO GOMEZ APRNIDI A V15.09 PERSONAL HISTORY OF OTHER ALLERGY OTHER THAN TO MEDICINAL AGENTS 02/07/2013 780.99 ANHEDONIA 02/07/2013 799.51 ATTENTION OR CONCENTRATION DEFICIT 02/07/2013 780.99 ANHEDONIA 02/07/2013 799.51 ATTENTION OR CONCENTRATION DEFICIT 02/07/2013 780.99 ANHEDONIA 02/07/2013 799.51 ATTENTION OR CONCENTRATION DEFICIT 02/07/2013 780.99 ANHEDONIA 02/07/2013 799.51 ATTENTION OR CONCENTRATION DEFICIT 02/07/2013 780.99 ANHEDONIA 02/07/2013 799.51 ATTENTION OR CONCENTRATION DEFICIT 02/07/2013 BARBARA ARAMBULA APRN 780.99 ANHEDONIA 02/07/2013 BARBARA ARAMBULA APRN 799.51 ATTENTION OR CONCENTRATION DEFICIT 02/07/2013 KNAPP DO, HELEN K 780.99 ANHEDONIA 02/07/2013 KNAPP DO, HELEN K 799.51 ATTENTION OR CONCENTRATION DEFICIT 02/07/2013 WHITE DDS, DANTE Brady 780.99 ANHEDONIA 02/07/2013 WHITE DDS, DANTE Brady 799.51 ATTENTION OR CONCENTRATION DEFICIT 02/07/2013 JASON FLOOR COVERING CONTRACTOR, ANNA MARIE A 780.99 ANHEDONIA 02/07/2013 JASON FLOOR COVERING CONTRACTOR, ANNA MARIE A 799.51 ATTENTION OR CONCENTRATION DEFICIT 02/07/2013 JASON FLOOR COVERING CONTRACTOR, ANNA MARIE A 780.99 ANHEDONIA 02/07/2013 JASON FLOOR COVERING CONTRACTOR, ANNA MARIE A 799.51 ATTENTION OR CONCENTRATION DEFICIT 02/07/2013 JASON FLOOR COVERING CONTRACTOR, ANNA MARIE A 780.99 ANHEDONIA 02/07/2013 JASON FLOOR COVERING CONTRACTOR, ANNA MARIE A 799.51 ATTENTION OR CONCENTRATION DEFICIT 02/07/2013 WHITE DDS, DANTE D 780.99 ANHEDONIA 02/07/2013 WHITE DDS, DANTE Brady 799.51 ATTENTION OR CONCENTRATION DEFICIT 02/07/2013 KNAPP DO, HELEN K 780.99 ANHEDONIA 02/07/2013 KNAPP DO, HELEN K 799.51 ATTENTION OR CONCENTRATION DEFICIT 02/07/2013 KNAPP DO, HELEN K 780.99 ANHEDONIA 02/07/2013 KNAPP DO, HELEN K 799.51 ATTENTION OR CONCENTRATION DEFICIT 02/07/2013 780.99 ANHEDONIA 02/07/2013 799.51 ATTENTION OR CONCENTRATION DEFICIT 02/07/2013 KNAPP DO, HELEN K 780.99 ANHEDONIA 02/07/2013 KNAPP DO, HELEN K 799.51 ATTENTION OR CONCENTRATION DEFICIT 02/07/2013 JASON FLOOR COVERING CONTRACTOR, ANNA MARIE A 780.99 ANHEDONIA 02/07/2013 JASON FLOOR COVERING CONTRACTOR, ANNA MARIE A 799.51 ATTENTION OR CONCENTRATION DEFICIT 02/07/2013 KNAPP DO, HELEN K 780.99 ANHEDONIA 02/07/2013 KNAPP DO, HELEN K 799.51 ATTENTION OR CONCENTRATION DEFICIT 02/07/2013 JASON FLOOR COVERING CONTRACTOR, ANNA MARIE A 780.99 ANHEDONIA 02/07/2013 JASON FLOOR COVERING CONTRACTOR, ANNA MARIE A 799.51 ATTENTION OR CONCENTRATION DEFICIT 02/07/2013 WHITE DDS, DORA J 780.99 ANHEDONIA 02/07/2013 WHITE DDS, DORA J 799.51 ATTENTION OR CONCENTRATION DEFICIT 02/07/2013 JASON FLOOR COVERING CONTRACTOR, ANNA MARIE A 780.99 ANHEDONIA 02/07/2013 JASON FLOOR COVERING CONTRACTOR, ANNA MARIE A 799.51 ATTENTION OR CONCENTRATION DEFICIT 02/07/2013 KNAPP DO, HELEN K 780.99 ANHEDONIA 02/07/2013 KNAPP DO, HELEN K 799.51 ATTENTION OR CONCENTRATION DEFICIT 02/07/2013 KNAPP DO, HELEN K 780.99 ANHEDONIA 02/07/2013 KNAPP DO, HELEN K 799.51 ATTENTION OR CONCENTRATION DEFICIT 02/07/2013 KNAPP DO, HELEN K 780.99 ANHEDONIA 02/07/2013 KNAPP DO, HELEN K 799.51 ATTENTION OR CONCENTRATION DEFICIT 02/07/2013 KNAPP DO, HELEN K 780.99 ANHEDONIA 02/07/2013 KNAPP DO, HELEN K 799.51 ATTENTION OR CONCENTRATION DEFICIT 02/07/2013 KNAPP DO, HELEN K 780.99 ANHEDONIA 02/07/2013 KNAPP DO, HELEN K 799.51 ATTENTION OR CONCENTRATION DEFICIT 02/07/2013 JASON FLO[employer] COVERING CONTRACTOR, ANNA MARIE A 780.99 ANHEDONIA 02/07/2013 JASON F[employer]OVER[employer] CONTRACTOR, ANNA MARIE A 799.51 ATTENTION OR CONCENTRATION DEFICIT 02/07/2013 KNAPP DO, HELEN K 780.99 ANHEDONIA 02/07/2013 KNAPP DO, HELEN K 799.51 ATTENTION OR CONCENTRATION DEFICIT 02/07/2013 KNAPP DO, HELEN K 780.99 ANHEDONIA 02/07/2013 KNAPP DO, HELEN K 799.51 ATTENTION OR CONCENTRATION DEFICIT 02/07/2013 KNAPP DO, HELEN K 780.99 ANHEDONIA 02/07/2013 KNAPP DO, HELEN K 799.51 ATTENTION OR CONCENTRATION DEFICIT 02/07/2013 JASON F[employer] COVERING CONTRACTOR, ANNA MARIE A 780.99 ANHEDONIA 02/07/2013 JASON F[employer] COVER[employer] CONTRACTOR, ANNA MARIE A 799.51 ATTENTION OR CONCENTRATION DEFICIT 02/07/2013 JASON F[employer] COVERING CONTRACTOR, ANNA MARIE A 780.99 ANHEDONIA 02/07/2013 JASON F[employer] COVERING CONTRACTOR, ANNA MARIE A 799.51 ATTENTION OR CONCENTRATION DEFICIT 02/07/2013 JASON F[employer] COVERING CONTRACTOR, ANNA MARIE A 780.99 ANHEDONIA 02/07/2013 JASON F[employer] COVERING CONTRACTOR, ANNA MARIE A 799.51 ATTENTION OR CONCENTRATION DEFICIT 02/07/2013 JASON FLO[employer] COVERING CONTRACTOR, ANNA MARIE A 780.99 ANHEDONIA 02/07/2013 JASON F[employer] COVER[employer] CONTRACTOR, ANNA MARIE A 799.51 ATTENTION OR CONCENTRATION DEFICIT 02/28/2013 314.9 UNSPECIFIED HYPERKINETIC SYNDROME OF CHILDHOOD 02/28/2013 314.9 UNSPECIFIED HYPERKINETIC SYNDROME OF CHILDHOOD 02/28/2013 314.9 UNSPECIFIED HYPERKINETIC SYNDROME OF CHILDHOOD 02/28/2013 BARBARA ARAMBULA APRN 314.9 UNSPECIFIED HYPERKINETIC SYNDROME OF CHILDHOOD 02/28/2013 ANDRES KNAPP DOA K 314.9 UNSPECIFIED HYPERKINETIC SYNDROME OF CHILDHOOD 02/28/2013 DANTE DEL REAL DDS 314.9 UNSPECIFIED HYPERKINETIC SYNDROME OF CHILDHOOD 02/28/2013 JASON F[employer] COVERING CONTRACTOR, ANNA MARIE A 314.9 UNSPECIFIED HYPERKINETIC SYNDROME OF CHILDHOOD 02/28/2013 JASON FLOOR COVERING CONTRACTOR, ANNA MARIE A 314.9 UNSPECIFIED HYPERKINETIC SYNDROME OF CHILDHOOD 02/28/2013 JASON FLOOR COVERING CONTRACTOR, ANNA MARIE A 314.9 UNSPECIFIED HYPERKINETIC SYNDROME OF CHILDHOOD 02/28/2013 DANTE DEL REAL DDS 314.9 UNSPECIFIED HYPERKINETIC SYNDROME OF CHILDHOOD 02/28/2013 KNAPP DO HELEN K 314.9 UNSPECIFIED HYPERKINETIC SYNDROME OF CHILDHOOD 02/28/2013 KNAPP DO HELEN K 314.9 UNSPECIFIED HYPERKINETIC SYNDROME OF CHILDHOOD 02/28/2013 314.9 UNSPECIFIED HYPERKINETIC SYNDROME OF CHILDHOOD 02/28/2013 KNAPP DO HELEN K 314.9 UNSPECIFIED HYPERKINETIC SYNDROME OF CHILDHOOD 02/28/2013 JASON FLOOR COVERING CONTRACTOR, ANNA MARIE A 314.9 UNSPECIFIED HYPERKINETIC SYNDROME OF CHILDHOOD 02/28/2013 KNAPP DO HELEN K 314.9 UNSPECIFIED HYPERKINETIC SYNDROME OF CHILDHOOD 02/28/2013 JASON FLOOR COVERING CONTRACTOR, ANNA MARIE A 314.9 UNSPECIFIED HYPERKINETIC SYNDROME OF CHILDHOOD 02/28/2013 WHITE DDS, DORA J 314.9 UNSPECIFIED HYPERKINETIC SYNDROME OF CHILDHOOD 02/28/2013 JASON FLOOR COVERING CONTRACTOR, ANNA MARIE A 314.9 UNSPECIFIED HYPERKINETIC SYNDROME OF CHILDHOOD 02/28/2013 KNAPP DO, HELEN K 314.9 UNSPECIFIED HYPERKINETIC SYNDROME OF CHILDHOOD 02/28/2013 KNAPP DO, HELEN K 314.9 UNSPECIFIED HYPERKINETIC SYNDROME OF CHILDHOOD 02/28/2013 KNAPP DO, HELEN K 314.9 UNSPECIFIED HYPERKINETIC SYNDROME OF CHILDHOOD 02/28/2013 KNAPP DO, HELEN K 314.9 UNSPECIFIED HYPERKINETIC SYNDROME OF CHILDHOOD 02/28/2013 KNAPP DO, HELEN K 314.9 UNSPECIFIED HYPERKINETIC SYNDROME OF CHILDHOOD 02/28/2013 JASON FLOOR COVERING CONTRACTOR, ANNA MARIE A 314.9 UNSPECIFIED HYPERKINETIC SYNDROME OF CHILDHOOD 02/28/2013 KNAPP DO, HELEN K 314.9 UNSPECIFIED HYPERKINETIC SYNDROME OF CHILDHOOD 02/28/2013 KNAPP DO, HELEN K 314.9 UNSPECIFIED HYPERKINETIC SYNDROME OF CHILDHOOD 02/28/2013 KNAPP DO, HELEN K 314.9 UNSPECIFIED HYPERKINETIC SYNDROME OF CHILDHOOD 02/28/2013 JASON FLOOR COVERING CONTRACTOR, ANNA MARIE A 314.9 UNSPECIFIED HYPERKINETIC SYNDROME OF CHILDHOOD 02/28/2013 JASON FLOOR COVERING CONTRACTOR, ANNA MARIE A 314.9 UNSPECIFIED HYPERKINETIC SYNDROME OF CHILDHOOD 02/28/2013 JASON FLOOR COVERING CONTRACTOR, ANNA MARIE A 314.9 UNSPECIFIED HYPERKINETIC SYNDROME OF CHILDHOOD 02/28/2013 JASON FLOOR COVERING CONTRACTOR, ANNA MARIE A 314.9 UNSPECIFIED HYPERKINETIC SYNDROME OF CHILDHOOD 08/01/2013 KNAPP DO, HELEN K 466.0 BRONCHITIS, ACUTE 08/01/2013 WHITE DDS, DANTE D 466.0 BRONCHITIS, ACUTE 08/01/2013 JASON FLOOR COVERING CONTRACTOR, ANNA MARIE A 466.0 BRONCHITIS, ACUTE 08/01/2013 JASON FLOOR COVERING CONTRACTOR, ANNA MARIE A 466.0 BRONCHITIS, ACUTE 08/01/2013 JASON FLOOR COVERING CONTRACTOR, ANNA MARIE A 466.0 BRONCHITIS, ACUTE 08/01/2013 WHITE DDS, DANTE D 466.0 BRONCHITIS, ACUTE 08/01/2013 KNAPP DO, HELEN K 466.0 BRONCHITIS, ACUTE 08/01/2013 KNAPP DO, HELEN K 466.0 BRONCHITIS, ACUTE 08/01/2013 466.0 BRONCHITIS, ACUTE 08/01/2013 KNAPP DO, HELEN K 466.0 BRONCHITIS, ACUTE 08/01/2013 JASON FLOOR COVERING CONTRACTOR, ANNA MARIE A 466.0 BRONCHITIS, ACUTE 08/01/2013 KNAPP DO, HELEN K 466.0 BRONCHITIS, ACUTE 08/01/2013 JASON FLOOR COVERING CONTRACTOR, ANNA MARIE A 466.0 BRONCHITIS, ACUTE 08/01/2013 WHITE DDS, DORA J 466.0 BRONCHITIS, ACUTE 08/01/2013 JASON FLOOR COVERING CONTRACTOR, ANNA MARIE A 466.0 BRONCHITIS, ACUTE 08/01/2013 KNAPP DO, HELEN K 466.0 BRONCHITIS, ACUTE 08/01/2013 KNAPP DO, HELEN K 466.0 BRONCHITIS, ACUTE 08/01/2013 KNAPP DO, HELEN K 466.0 BRONCHITIS, ACUTE 08/01/2013 KNAPP DO, HELEN K 466.0 BRONCHITIS, ACUTE 08/01/2013 KNAPP DO, HELEN K 466.0 BRONCHITIS, ACUTE 08/01/2013 JASON FLOOR COVERING CONTRACTOR, ANNA MARIE A 466.0 BRONCHITIS, ACUTE 08/01/2013 KNAPP DO, HELEN K 466.0 BRONCHITIS, ACUTE 08/01/2013 KNAPP DO, HELEN K 466.0 BRONCHITIS, ACUTE 08/01/2013 KNAPP DO, HELEN K 466.0 BRONCHITIS, ACUTE 08/01/2013 JASON FLOOR COVERING CONTRACTOR, ANNA MARIE A 466.0 BRONCHITIS, ACUTE 08/01/2013 JASON FLOOR COVERING CONTRACTOR, ANNA MARIE A 466.0 BRONCHITIS, ACUTE 08/01/2013 JASON FLOOR COVERING CONTRACTOR, ANNA MARIE A 466.0 BRONCHITIS, ACUTE 08/01/2013 JASON FLOOR COVERING CONTRACTOR, ANNA MARIE A 466.0 BRONCHITIS, ACUTE 11/02/2013 JASON FLOOR COVERING CONTRACTOR, ANNA MARIE A V22.0 , NORMAL FIRST 11/02/2013 JASON FLOOR COVERING CONTRACTOR, ANNA MARIE A V22.0 , NORMAL FIRST 11/02/2013 JASON FLOOR COVERING CONTRACTOR, ANNA MARIE A V22.0 , NORMAL FIRST 11/02/2013 WHITE DDS, DANTE Brady V22.0 , NORMAL FIRST 11/02/2013 KNAPP DO, HELEN K V22.0 , NORMAL FIRST 11/02/2013 KNAPP DO, HELEN K V22.0 , NORMAL FIRST 11/02/2013 V22.0 , NORMAL FIRST 11/02/2013 KNAPP DO, HELEN K V22.0 , NORMAL FIRST 11/02/2013 JASON FLOOR COVERING CONTRACTOR, ANNA MARIE A V22.0 , NORMAL FIRST 11/02/2013 KNAPP DO, HELEN K V22.0 , NORMAL FIRST 11/02/2013 JASON FLOOR COVERING CONTRACTOR, ANNA MAIRE A V22.0 , NORMAL FIRST 11/02/2013 WHITE DDS, DORA J V22.0 , NORMAL FIRST 11/02/2013 JASON FLOOR COVERING CONTRACTOR, ANNA MARIE A V22.0 , NORMAL FIRST 11/02/2013 KNAPP DO, HELEN K V22.0 , NORMAL FIRST 11/02/2013 KNAPP DO, HELEN K V22.0 , NORMAL FIRST 11/02/2013 KNAPP DO, HELEN K V22.0 , NORMAL FIRST 11/02/2013 KNAPP DO, HELEN K V22.0 , NORMAL FIRST 11/02/2013 KNAPP DO, HELEN K V22.0 , NORMAL FIRST 11/02/2013 JASON FLOOR COVERING CONTRACTOR, ANNA MARIE A V22.0 , NORMAL FIRST 11/02/2013 KNAPP DO, HELEN K V22.0 , NORMAL FIRST 11/02/2013 KNAPP DO, HELEN K V22.0 , NORMAL FIRST 11/02/2013 KNAPP DO, HELEN K V22.0 , NORMAL FIRST 11/02/2013 JASON FLOOR COVERING CONTRACTOR, ANNA MARIE A V22.0 , NORMAL FIRST 11/02/2013 JASON FLOOR COVERING CONTRACTOR, ANNA MARIE A V22.0 , NORMAL FIRST 11/02/2013 JASON FLOOR COVERING CONTRACTOR, ANNA MARIE A V22.0 , NORMAL FIRST 11/02/2013 JASON FLOOR COVERING CONTRACTOR, ANNA MARIE A V22.0 , NORMAL FIRST 11/15/2013 JASON FLOOR COVERING CONTRACTOR, ANNA MARIE A 646.60 COMPL OF - UTI 11/15/2013 JASON FLOOR COVERING CONTRACTOR, ANNA MARIE A 787.01 NAUSEA WITH VOMITING 11/15/2013 JASON FLOOR COVERING CONTRACTOR, ANNA MARIE A 646.60 COMPL OF - UTI 11/15/2013 JASON FLOOR COVERING CONTRACTOR, ANNA MARIE A 787.01 NAUSEA WITH VOMITING 11/15/2013 DANTE DEL REAL DDS 646.60 COMPL OF - UTI 11/15/2013 WHITE DDSDANTE 787.01 NAUSEA WITH VOMITING 11/15/2013 KNAPP DO, HELEN K 646.60 COMPL OF - UTI 11/15/2013 KNAPP DO, HELEN K 787.01 NAUSEA WITH VOMITING 11/15/2013 KNAPP DO, HELEN K 646.60 COMPL OF - UTI 11/15/2013 KNAPP DO, HELEN K 787.01 NAUSEA WITH VOMITING 11/15/2013 646.60 COMPL OF - UTI 11/15/2013 787.01 NAUSEA WITH VOMITING 11/15/2013 KNAPP DO, HELEN K 646.60 COMPL OF - UTI 11/15/2013 KNAPP DO, HELEN K 787.01 NAUSEA WITH VOMITING 11/15/2013 JASONNIK ROJAS ANNA MARIE A 646.60 COMPL OF - UTI 11/15/2013 JASON ROJAS ANNA MARIE A 787.01 NAUSEA WITH VOMITING 11/15/2013 KNAPP DO HELEN K 646.60 COMPL OF - UTI 11/15/2013 KNAPP DO, HELEN K 787.01 NAUSEA WITH VOMITING 11/15/2013 JASON ROJAS ANNA MARIE A 646.60 COMPL OF - UTI 11/15/2013 JASONAmarilis ROJAS ANNA MARIE A 787.01 NAUSEA WITH VOMITING 11/15/2013 WHITE DDS, DORA J 646.60 COMPL OF - UTI 11/15/2013 WHITE DDS, DORA J 787.01 NAUSEA WITH VOMITING 11/15/2013 JASON ROJAS ANNA MARIE A 646.60 COMPL OF - UTI 11/15/2013 JASON ROJAS ANNA MARIE A 787.01 NAUSEA WITH VOMITING 11/15/2013 KNAPP DO, HELEN K 646.60 COMPL OF - UTI 11/15/2013 KNAPP DO, HELEN K 787.01 NAUSEA WITH VOMITING 11/15/2013 KNAPP DO, HELEN K 646.60 COMPL OF - UTI 11/15/2013 KNAPP DO, HELEN K 787.01 NAUSEA WITH VOMITING 11/15/2013 KNAPP DO, HELEN K 646.60 COMPL OF - UTI 11/15/2013 KNAPP DO, HELEN K 787.01 NAUSEA WITH VOMITING 11/15/2013 KNAPP DO, HELEN K 646.60 COMPL OF - UTI 11/15/2013 KNAPP DO, HELEN K 787.01 NAUSEA WITH VOMITING 11/15/2013 KNAPP DO HELEN K 646.60 COMPL OF - UTI 11/15/2013 KNAPP DO, HELEN K 787.01 NAUSEA WITH VOMITING 11/15/2013 OSVALDO GOMEZ APRNIDI A 646.60 COMPL OF - UTI 11/15/2013 JASON ROJAS ANNA MARIE A 787.01 NAUSEA WITH VOMITING 11/15/2013 KNAPP DO HELEN K 646.60 COMPL OF - UTI 11/15/2013 KNAPP DO, HELEN K 787.01 NAUSEA WITH VOMITING 11/15/2013 KNAPP DO, HELEN K 646.60 COMPL OF - UTI 11/15/2013 KNAPP DO, HELEN K 787.01 NAUSEA WITH VOMITING 11/15/2013 KNAPP DO HELEN K 646.60 COMPL OF - UTI 11/15/2013 KNAPP DO HELEN K 787.01 NAUSEA WITH VOMITING 11/15/2013 JASON ROJAS ANNA MARIE A 646.60 COMPL OF - UTI 11/15/2013 JASON FLOOR COVERING CONTRACTOR ANNA MARIE A 787.01 NAUSEA WITH VOMITING 11/15/2013 JASON FLOOR COVERING CONTRACTOR, ANNA MARIE A 646.60 COMPL OF - UTI 11/15/2013 JASON FLOOR COVERING CONTRACTOR, ANNA MARIE A 787.01 NAUSEA WITH VOMITING 11/15/2013 JASON FLOOR COVERING CONTRACTOR, ANNA MARIE A 646.60 COMPL OF - UTI 11/15/2013 JASON FLOOR COVERING CONTRACTOR, ANNA MARIE A 787.01 NAUSEA WITH VOMITING 11/15/2013 JASON FLOOR COVERING CONTRACTOR, ANNA MARIE A 646.60 COMPL OF - UTI 11/15/2013 JASON FLOOR COVERING CONTRACTOR ANNA MARIE A 787.01 NAUSEA WITH VOMITING 11/30/2013 JASON FLOOR COVERING CONTRACTOR, ANNA MARIE A V74.5 STD SCREEN 11/30/2013 JASON GARCIAN ANNA MARIE A V76.2 CERVICAL CANCER SCREENING (PAP SMEAR) 11/30/2013 NASIMA ORANTESSDANTE V74.5 STD SCREEN 11/30/2013 NASIMA ORANTESSDANTE V76.2 CERVICAL CANCER SCREENING (PAP SMEAR) 11/30/2013 ANDRES KNAPP DOA K V74.5 STD SCREEN 11/30/2013 KNAPP DO, HELEN K V76.2 CERVICAL CANCER SCREENING (PAP SMEAR) 11/30/2013 KNAPP DO, HELEN K V74.5 STD SCREEN 11/30/2013 KNAPP DO, HELEN K V76.2 CERVICAL CANCER SCREENING (PAP SMEAR) 11/30/2013 V74.5 STD SCREEN 11/30/2013 V76.2 CERVICAL CANCER SCREENING (PAP SMEAR) 11/30/2013 KNAPP DO, HELEN K V74.5 STD SCREEN 11/30/2013 KNAPP DO, HELEN K V76.2 CERVICAL CANCER SCREENING (PAP SMEAR) 11/30/2013 JASON FLOOR COVERING CONTRACTOR, ANNA MARIE A V74.5 STD SCREEN 11/30/2013 JASON FLOOR COVERING CONTRACTOR, ANNA MARIE A V76.2 CERVICAL CANCER SCREENING (PAP SMEAR) 11/30/2013 KNAPP DO, HELEN K V74.5 STD SCREEN 11/30/2013 KNAPP DO, HELEN K V76.2 CERVICAL CANCER SCREENING (PAP SMEAR) 11/30/2013 JASON FLOOR COVERING CONTRACTOR, ANNA MARIE A V74.5 STD SCREEN 11/30/2013 JASON FLOOR COVERING CONTRACTOR, ANNA MARIE A V76.2 CERVICAL CANCER SCREENING (PAP SMEAR) 11/30/2013 WHITE DDS, DORA J V74.5 STD SCREEN 11/30/2013 WHITE DDS, DORA J V76.2 CERVICAL CANCER SCREENING (PAP SMEAR) 11/30/2013 JASON FLOOR COVERING CONTRACTOR, ANNA MARIE A V74.5 STD SCREEN 11/30/2013 JASON FLOOR COVERING CONTRACTOR, ANNA MARIE A V76.2 CERVICAL CANCER SCREENING (PAP SMEAR) 11/30/2013 KNAPP DO, HELEN K V74.5 STD SCREEN 11/30/2013 KNAPP DO, HELEN K V76.2 CERVICAL CANCER SCREENING (PAP SMEAR) 11/30/2013 KNAPP DO, HELEN K V74.5 STD SCREEN 11/30/2013 KNAPP DO, HELEN K V76.2 CERVICAL CANCER SCREENING (PAP SMEAR) 11/30/2013 KNAPP DO, HELEN K V74.5 STD SCREEN 11/30/2013 KNAPP DO, HELEN K V76.2 CERVICAL CANCER SCREENING (PAP SMEAR) 11/30/2013 KNAPP DO, HELEN K V74.5 STD SCREEN 11/30/2013 KNAPP DO, HELEN K V76.2 CERVICAL CANCER SCREENING (PAP SMEAR) 11/30/2013 KNAPP DO, HELEN K V74.5 STD SCREEN 11/30/2013 HELEN KNAPP DO V76.2 CERVICAL CANCER SCREENING (PAP SMEAR) 11/30/2013 JASON FLOOR COVERING CONTRACTOR, ANNA MARIE A V74.5 STD SCREEN 11/30/2013 JASON FLOOR COVERING CONTRACTOR, ANNA MARIE A V76.2 CERVICAL CANCER SCREENING (PAP SMEAR) 11/30/2013 KNAPP HELEN PERRY K V74.5 STD SCREEN 11/30/2013 HELEN KNAPP DO V76.2 CERVICAL CANCER SCREENING (PAP SMEAR) 11/30/2013 KNAPP ANDRES PERRYA K V74.5 STD SCREEN 11/30/2013 KNAPP ANDRES PERRYA K V76.2 CERVICAL CANCER SCREENING (PAP SMEAR) 11/30/2013 KNAPP ANDRES PERRYA K V74.5 STD SCREEN 11/30/2013 KNAPP HELEN PERRY K V76.2 CERVICAL CANCER SCREENING (PAP SMEAR) 11/30/2013 JASON FLOOR COVERING CONTRACTOR, ANNA MARIE A V74.5 STD SCREEN 11/30/2013 JASON FLOOR COVERING CONTRACTOR, ANNA MARIE A V76.2 CERVICAL CANCER SCREENING (PAP SMEAR) 11/30/2013 JASON FLOOR COVERING CONTRACTOR, ANNA MARIE A V74.5 STD SCREEN 11/30/2013 JASON FLOOR COVERING CONTRACTOR, ANNA MARIE A V76.2 CERVICAL CANCER SCREENING (PAP SMEAR) 11/30/2013 JASON FLOOR COVERING CONTRACTOR, ANNA MARIE A V74.5 STD SCREEN 11/30/2013 JASON FLOOR COVERING CONTRACTOR, ANNA MARIE A V76.2 CERVICAL CANCER SCREENING (PAP SMEAR) 11/30/2013 JASON FLOOR COVERING CONTRACTOR, ANNA MARIE A V74.5 STD SCREEN 11/30/2013 JASON FLOOR COVERING CONTRACTOR, ANNA MARIE A V76.2 CERVICAL CANCER SCREENING (PAP SMEAR) 12/27/2013 HELEN KNAPP DO V04.81 FLU SHOT 12/27/2013 HELEN KNAPP DO V04.81 FLU SHOT 12/27/2013 V04.81 FLU SHOT 12/27/2013 HELEN KNAPP DO V04.81 FLU SHOT 12/27/2013 JASON FLOOR COVERING CONTRACTOR, ANNA MARIE A V04.81 FLU SHOT 12/27/2013 KNAPP HELEN PERRY V04.81 FLU SHOT 12/27/2013 JASON FLOOR COVERING CONTRACTOR, ANNA MARIE A V04.81 FLU SHOT 12/27/2013 DORA DEL REAL DDS V04.81 FLU SHOT 12/27/2013 JASON FLOOR COVERING CONTRACTOR, ANNA MARIE A V04.81 FLU SHOT 12/27/2013 KNAPP DO, HELEN K V04.81 FLU SHOT 12/27/2013 KNAPP DO, HELEN K V04.81 FLU SHOT 12/27/2013 KNAPP DO, HELEN K V04.81 FLU SHOT 12/27/2013 KNAPP DO, HELEN K V04.81 FLU SHOT 12/27/2013 KNAPP DO, HELEN K V04.81 FLU SHOT 12/27/2013 JASON FLOOR COVERING CONTRACTOR, ANNA MARIE A V04.81 FLU SHOT 12/27/2013 KNAPP DO, HELEN K V04.81 FLU SHOT 12/27/2013 KNAPP DO, HELEN K V04.81 FLU SHOT 12/27/2013 KNAPP DO, HELEN K V04.81 FLU SHOT 12/27/2013 JASON FLOOR COVERING CONTRACTOR, ANNA MARIE A V04.81 FLU SHOT 12/27/2013 JASON FLOOR COVERING CONTRACTOR, ANNA MARIE A V04.81 FLU SHOT 12/27/2013 JASON FLOOR COVERING CONTRACTOR, ANNA MARIE A V04.81 FLU SHOT 12/27/2013 JASON FLOOR COVERING CONTRACTOR, ANNA MARIE A V04.81 FLU SHOT 02/15/2014 JASON FLOOR COVERING CONTRACTOR, ANNA MARIE A 477.9 ALLERGIC RHINITIS CAUSE UNSPECIFIED 02/15/2014 KNAPP DO, HELEN K 477.9 ALLERGIC RHINITIS CAUSE UNSPECIFIED 02/15/2014 JASON FLOOR COVERING CONTRACTOR, ANNA MARIE A 477.9 ALLERGIC RHINITIS CAUSE UNSPECIFIED 02/15/2014 WHITE DDS, DORA J 477.9 ALLERGIC RHINITIS CAUSE UNSPECIFIED 02/15/2014 JASON FLOOR COVERING CONTRACTOR, ANNA MARIE A 477.9 ALLERGIC RHINITIS CAUSE UNSPECIFIED 02/15/2014 KNAPP DO, HELEN K 477.9 ALLERGIC RHINITIS CAUSE UNSPECIFIED 02/15/2014 KNAPP DO, HELEN K 477.9 ALLERGIC RHINITIS CAUSE UNSPECIFIED 02/15/2014 KNAPP DO, HELEN K 477.9 ALLERGIC RHINITIS CAUSE UNSPECIFIED 02/15/2014 KNAPP DO, HELEN K 477.9 ALLERGIC RHINITIS CAUSE UNSPECIFIED 02/15/2014 KNAPP DO, HELEN K 477.9 ALLERGIC RHINITIS CAUSE UNSPECIFIED 02/15/2014 JASON FLOOR COVERING CONTRACTOR, ANNA MARIE A 477.9 ALLERGIC RHINITIS CAUSE UNSPECIFIED 02/15/2014 KNAPP DO, HELEN K 477.9 ALLERGIC RHINITIS CAUSE UNSPECIFIED 02/15/2014 KNAPP DO, HELEN K 477.9 ALLERGIC RHINITIS CAUSE UNSPECIFIED 02/15/2014 KNAPP DO, HELEN K 477.9 ALLERGIC RHINITIS CAUSE UNSPECIFIED 02/15/2014 JASON FLOOR COVERING CONTRACTOR, ANNA MARIE A 477.9 ALLERGIC RHINITIS CAUSE UNSPECIFIED 02/15/2014 JASON FLOOR COVERING CONTRACTOR, ANNA MARIE A 477.9 ALLERGIC RHINITIS CAUSE UNSPECIFIED 02/15/2014 JASON FLOOR COVERING CONTRACTOR, ANNA MARIE A 477.9 ALLERGIC RHINITIS CAUSE UNSPECIFIED 02/15/2014 JASON FLOOR COVERING CONTRACTOR, ANNA MARIE A 477.9 ALLERGIC RHINITIS CAUSE UNSPECIFIED 03/13/2014 KNAPP DO, HELEN K Ot 625.9 FEM GENITAL SYMPTOMS NOS 03/13/2014 KNAPP DO, HELEN K Ot 648.93 OTH CURR COND-ANTEPARTUM 03/18/2014 FAVIOLA OHARA, MICHELLE Mujica Ot 648.93 OTH CURR COND-ANTEPARTUM 03/18/2014 FAVIOLA OHARA, MICHELLE Mujica Ot 780.4 DIZZINESS AND GIDDINESS 03/26/2014 KNAPP DO, HELEN K V06.1 TDAP DX 03/26/2014 KNAPP DO, HELEN K V77.1 DIABETES SCREENING 03/26/2014 KNAPP DO, HELEN K V78.0 ANEMIA SCREENING 03/26/2014 KNAPP DO, HELEN K V06.1 TDAP DX 03/26/2014 KNAPP DO, HELEN K V77.1 DIABETES SCREENING 03/26/2014 KNAPP DO, HELEN K V78.0 ANEMIA SCREENING 03/26/2014 KNAPP DO, HELEN K V06.1 TDAP DX 03/26/2014 KNAPP DO, HELEN K V77.1 DIABETES SCREENING 03/26/2014 KNAPP DO, HELEN K V78.0 ANEMIA SCREENING 03/26/2014 KNAPP DO, HELEN K V06.1 TDAP DX 03/26/2014 KNAPP DO, HELEN K V77.1 DIABETES SCREENING 03/26/2014 KNAPP DO, HELEN K V78.0 ANEMIA SCREENING 03/26/2014 KNAPP DO, HELEN K V06.1 TDAP DX 03/26/2014 KNAPP DO, HELEN K V77.1 DIABETES SCREENING 03/26/2014 KNAPP DO, HELEN K V78.0 ANEMIA SCREENING 03/26/2014 JASON FLOOR COVERING CONTRACTOR, ANNA MARIE A V06.1 TDAP DX 03/26/2014 JASON FLOOR COVERING CONTRACTOR, ANNA MARIE A V77.1 DIABETES SCREENING 03/26/2014 JASON FLOOR COVERING CONTRACTOR, ANNA MARIE A V78.0 ANEMIA SCREENING 03/26/2014 KNAPP DO, HELEN K V06.1 TDAP DX 03/26/2014 KNAPP DO, HELEN K V77.1 DIABETES SCREENING 03/26/2014 KNAPP DO, HELEN K V78.0 ANEMIA SCREENING 03/26/2014 KNAPP DO, HELEN K V06.1 TDAP DX 03/26/2014 KNAPP DO, HELEN K V77.1 DIABETES SCREENING 03/26/2014 KNAPP DO, HELEN K V78.0 ANEMIA SCREENING 03/26/2014 KNAPP DO, HELEN K V06.1 TDAP DX 03/26/2014 KNAPP DO, HELEN K V77.1 DIABETES SCREENING 03/26/2014 KNAPP DO, HELEN K V78.0 ANEMIA SCREENING 03/26/2014 JASON FLOOR COVERING CONTRACTOR, ANNA MARIE A V06.1 TDAP DX 03/26/2014 JASON FLOOR COVERING CONTRACTOR, ANNA MARIE A V77.1 DIABETES SCREENING 03/26/2014 JASON FLOOR COVERING CONTRACTOR, ANNA MARIE A V78.0 ANEMIA SCREENING 03/26/2014 JASON FLOOR COVERING CONTRACTOR, ANNA MARIE A V06.1 TDAP DX 03/26/2014 JASON FLOOR COVERING CONTRACTOR, ANNA MARIE A V77.1 DIABETES SCREENING 03/26/2014 JASON FLOOR COVERING CONTRACTOR, ANNA MARIE A V78.0 ANEMIA SCREENING 03/26/2014 JASON FLOOR COVERING CONTRACTOR, ANNA MARIE A V06.1 TDAP DX 03/26/2014 JASON FLOOR COVERING CONTRACTOR, ANNA MARIE A V77.1 DIABETES SCREENING 03/26/2014 JASON FLOOR COVERING CONTRACTOR, ANNA MARIE A V78.0 ANEMIA SCREENING 03/26/2014 JASON FLOOR COVERING CONTRACTOR, ANNA MARIE A V06.1 TDAP DX 03/26/2014 JASON FLOOR COVERING CONTRACTOR, ANNA MARIE A V77.1 DIABETES SCREENING 03/26/2014 JASON FLOOR COVERING CONTRACTOR, ANNA MARIE A V78.0 ANEMIA SCREENING 04/12/2014 KNAPP DO, HELEN Den Ot 648.93 OTH CURR COND-ANTEPARTUM 04/12/2014 KNAPP DO, HELEN K Ot 789.00 ABDOMINAL PAIN, UNSPECIFIED SITE 04/17/2014 HELEN KNAPP DO Ot 648.73 BONE DISORDER-ANTEPARTUM 04/17/2014 HELEN KNAPP DO Ot 724.5 BACKACHE NOS 04/17/2014 HELEN KNAPP DO Ot 729.5 PAIN IN LIMB 05/03/2014 HELEN KNAPP DO 788.1 DYSURIA 05/03/2014 JASON APRN, ANNA MARIE A 788.1 DYSURIA 05/03/2014 HELEN KNAPP DO K 788.1 DYSURIA 05/03/2014 HELEN KNAPP DO K 788.1 DYSURIA 05/03/2014 HELEN KNAPP DO K 788.1 DYSURIA 05/03/2014 JASON FLOOR COVERING CONTRACTOR, ANNA MARIE A 788.1 DYSURIA 05/03/2014 JASON FLOOR COVERING CONTRACTOR ANNA MARIE A 788.1 DYSURIA 05/03/2014 JASON FLOOR COVERING CONTRACTOR ANNA MARIE A 788.1 DYSURIA 05/03/2014 JASON OBB ANNA MARIE A 788.1 DYSURIA 05/03/2014 HELEN KNAPP DO Ot 646.83 PREG COMPL NEC-ANTEPART 05/03/2014 HELEN KNAPP DO Ot 789.00 ABDOMINAL PAIN, UNSPECIFIED SITE 05/13/2014 ANA PAULA OHARA, NOAH Olmos Ot 623.5 NONINFECT VAG LEUKORRHEA 05/13/2014 ANA PAULA OHARA, NOAH Olmos Ot 654.73 ABNORM VAGINA-ANTEPARTUM 06/07/2014 HELEN KNAPP DO Ot 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 06/07/2014 HELEN KNAPP DO Ot V27.0 DELIVER-SINGLE LIVEBORN 07/18/2014 JASON APRN, ANNA MARIE A V24.2 F/U, ROUTINE 07/18/2014 JASON FLOOR COVERING CONTRACTOR, ANNA MARIE A V25.01 CONTRACEPTION - ORAL CONTRACEPTION 07/18/2014 JASON FLOOR COVERING CONTRACTOR, ANNA MARIE A V24.2 F/U, ROUTINE 07/18/2014 JASON FLOOR COVERING CONTRACTOR, ANNA MARIE A V25.01 CONTRACEPTION - ORAL CONTRACEPTION 07/18/2014 JASON FLOOR COVERING CONTRACTOR, ANNA MARIE A V24.2 F/U, ROUTINE 07/18/2014 JASON APRN, ANNA MARIE A V25.01 CONTRACEPTION - ORAL CONTRACEPTION 07/18/2014 ANNA MARIE GOMEZ APRN A V24.2 F/U, ROUTINE 07/18/2014 ANNA MARIE GOMEZ APRN A V25.01 CONTRACEPTION - ORAL CONTRACEPTION 11/05/2014 ANNA MARIE GOMEZ APRN 625.8 OTHER SPECIFIED SYMPTOMS 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 08/12/2015 KNAPP DO, HELEN K Ot 310.1 08/12/2015 KNAPP DO, HELEN K Ot 466.0 08/12/2015 KNAPP DO, HELEN K Ot 535.50 08/12/2015 KNAPP DO, HELEN K Ot 780.79 08/12/2015 KNAPP DO, HELEN K Ot 783.1 08/12/2015 KNAPP DO, HELEN K Ot 787.01 08/12/2015 KNAPP DO, HELEN K Ot V28.81 08/12/2015 KNAPP DO, HELEN K Ot V72.31 08/12/2015 KNAPP DO, HELEN K Ot V74.5 08/12/2015 KNAPP DO, HELEN K Ot V76.2 08/12/2015 KNAPP DO, HELEN K Ot 641.13 08/12/2015 KNAPP DO, HELEN K Ot V28.81 08/12/2015 KNAPP DO, HELEN K Ot V77.1 08/12/2015 KNAPP DO, HELEN K Ot V78.0 08/15/2015 ANA PAULA OHARA, NOAH Olmos Ot R10.11 08/15/2015 NOAH GOSS MD Ot R10.11 10/01/2015 KNAPP DO, HELEN K Ot 310.1 10/01/2015 KNAPP DO, HELEN K Ot 466.0 10/01/2015 KNAPP DO, HELEN K Ot 535.50 10/01/2015 KNAPP DO, HELEN K Ot 780.79 10/01/2015 KNAPP DO, HELEN K Ot 783.1 10/01/2015 KNAPP DO, HELEN K Ot 787.01 10/01/2015 KNAPP DO, HELEN K Ot V28.81 10/01/2015 KNAPP DO, HELEN K Ot V72.31 10/01/2015 KNAPP DO, HELEN K Ot V74.5 10/01/2015 KNAPP DO, HELEN K Ot V76.2 10/01/2015 KNAPP DO, HELEN K Ot 641.13 10/01/2015 KNAPP DO, HELEN K Ot V28.81 10/01/2015 KNAPP DO, HELEN K Ot V77.1 10/01/2015 KNAPP DO, HELEN K Ot V78.0 10/01/2015 ANA PAULA OHARA, NOAH Olmos Ot R10.11 12/04/2015 KNAPP DO, HELEN K Ot 310.1 12/04/2015 KNAPP DO, HELEN K Ot 466.0 12/04/2015 KNAPP DO, HELEN K Ot 535.50 12/04/2015 KNAPP DO, HELEN K Ot 780.79 12/04/2015 KNAPP DO, HELEN K Ot 783.1 12/04/2015 KNAPP DO, HELEN K Ot 787.01 12/04/2015 KNAPP DO, HELEN K Ot V28.81 12/04/2015 KNAPP DO, HELEN K Ot V72.31 12/04/2015 KNAPP DO, HELEN K Ot V74.5 12/04/2015 KNAPP DO, HELEN K Ot V76.2 12/04/2015 KNAPP DO, HELEN K Ot 641.13 12/04/2015 KNAPP DO, HELEN K Ot V28.81 12/04/2015 KNAPP DO, HELEN K Ot V77.1 12/04/2015 KNAPP DO, HELEN K Ot V78.0 12/04/2015 ANA PAULA OHARA, NOAH Olmos Ot R10.11 06/18/2016 KNAPP DO, HELEN K Ot 310.1 PERSONALITY CHANGE DUE TO CONDITIONS CLA 06/18/2016 KNAPP DO, HELEN K Ot 466.0 ACUTE BRONCHITIS 06/18/2016 KNAPP DO, HELEN K Ot 535.50 UNSP GASTRITIS GASTRODUODENITIS W/O ME 06/18/2016 KNAPP DO, HELEN K Ot 780.79 OTH MALAISE FATIGUE 06/18/2016 KNAPP DO, HELEN K Ot 783.1 ABNORMAL WEIGHT GAIN 06/18/2016 KNAPP DO, HELEN K Ot 787.01 NAUSEA WITH VOMITING 06/18/2016 KNAPP DO, HELEN K Ot V28.81 ENCOUNTER FOR ANATOMIC SURVEY 06/18/2016 KNAPP DO, HELEN K Ot V72.31 ROUTINE GYNECOLOGICAL EXAMINATION 06/18/2016 KNAPP DO, HELEN K Ot V74.5 SCREEN FOR VENERAL DIS 06/18/2016 KNAPP DO, HELEN K Ot V76.2 SCREEN MAL NEOP-CERVIX 06/18/2016 HELEN KNAPP DO Ot 641.13 PLACEN PREV HEM-ANTEPART 06/18/2016 HELEN KNAPP DO Ot V28.81 ENCOUNTER FOR ANATOMIC SURVEY 06/18/2016 HELEN KNAPP DO Ot V77.1 SCREEN-DIABETES MELLITUS 06/18/2016 HELEN KNAPP DO Ot V78.0 SCREEN-IRON DEFIC ANEMIA 06/18/2016 ANA PAULA OHARA, NOAH Olmos Ot R10.11 RIGHT UPPER QUADRANT PAIN 06/24/2016 ANA PAULA OHARA, NOAH Olmos Ot R51 HEADACHE 08/04/2016 HELEN KNAPP DO Ot 310.1 PERSONALITY CHANGE DUE TO CONDITIONS CLA 08/04/2016 HELEN KNAPP DO Ot 466.0 ACUTE BRONCHITIS 08/04/2016 HELEN KNAPP DO Ot 535.50 UNSP GASTRITIS GASTRODUODENITIS W/O ME 08/04/2016 HELEN KNAPP DO Ot 780.79 OTH MALAISE FATIGUE 08/04/2016 HELEN KNAPP DO Ot 783.1 ABNORMAL WEIGHT GAIN 08/04/2016 HELEN KNAPP DO Ot 787.01 NAUSEA WITH VOMITING 08/04/2016 HELEN KNAPP DO Ot V28.81 ENCOUNTER FOR ANATOMIC SURVEY 08/04/2016 HELEN KNAPP DO Ot V72.31 ROUTINE GYNECOLOGICAL EXAMINATION 08/04/2016 HELEN KNAPP DO Ot V74.5 SCREEN FOR VENERAL DIS 08/04/2016 HELEN KNAPP DO Ot V76.2 SCREEN MAL NEOP-CERVIX 08/04/2016 HELEN KNAPP DO Ot 641.13 PLACEN PREV HEM-ANTEPART 08/04/2016 HELEN KNAPP DO Ot V28.81 ENCOUNTER FOR ANATOMIC SURVEY 08/04/2016 HELEN KNAPP DO Ot V77.1 SCREEN-DIABETES MELLITUS 08/04/2016 HELEN KNAPP DO Ot V78.0 SCREEN-IRON DEFIC ANEMIA 08/04/2016 ANA PAULA OHARA, NOAH Olmos Ot R10.11 RIGHT UPPER QUADRANT PAIN 08/04/2016 ANA PAULA OHARA, NOAH Olmos Ot R51 HEADACHE 09/15/2016 NOAH GOSS MD Ot R51 HEADACHE 11/12/2016 NOAH GOSS MD Ot R10.13 EPIGASTRIC PAIN 11/27/2016 HELEN KNAPP DO Ot 310.1 PERSONALITY CHANGE DUE TO CONDITIONS CLA 11/27/2016 HELEN KNAPP DO Ot 466.0 ACUTE BRONCHITIS 11/27/2016 HELEN KNAPP DO Ot 535.50 UNSP GASTRITIS GASTRODUODENITIS W/O ME 11/27/2016 HELEN KNAPP DO Ot 780.79 OTH MALAISE FATIGUE 11/27/2016 HELEN KNAPP DO Ot 783.1 ABNORMAL WEIGHT GAIN 11/27/2016 HELEN KNAPP DO Ot 787.01 NAUSEA WITH VOMITING 11/27/2016 HELEN KNAPP DO Ot V28.81 ENCOUNTER FOR ANATOMIC SURVEY 11/27/2016 HELEN KNAPP DO Ot V72.31 ROUTINE GYNECOLOGICAL EXAMINATION 11/27/2016 HELEN KNAPP DO Ot V74.5 SCREEN FOR VENERAL DIS 11/27/2016 HELEN KNAPP DO Ot V76.2 SCREEN MAL NEOP-CERVIX 11/27/2016 HELEN KNAPP DO Ot 641.13 PLACEN PREV HEM-ANTEPART 11/27/2016 HELEN KNAPP DO Ot V28.81 ENCOUNTER FOR ANATOMIC SURVEY 11/27/2016 HELEN KNAPP DO Ot V77.1 SCREEN-DIABETES MELLITUS 11/27/2016 HELEN KNAPP DO Ot V78.0 SCREEN-IRON DEFIC ANEMIA 11/27/2016 ANA PAULA OHARA, NOAH Olmos Ot R10.11 RIGHT UPPER QUADRANT PAIN 11/27/2016 NOAH GOSS MD Ot R51 HEADACHE 11/27/2016 NOAH GOSS MD Ot R10.13 EPIGASTRIC PAIN 11/28/2016 NOAH GOSS MD Ot R10.13 EPIGASTRIC PAIN 12/29/2016 NOAH GOSS MD Ot R10.13 EPIGASTRIC PAIN 12/30/2016 NOAH GOSS MD Ot R10.13 EPIGASTRIC PAIN 07/13/2017 HELEN KNAPP DO Ot 310.1 PERSONALITY CHANGE DUE TO CONDITIONS CLA 07/13/2017 HELEN KNAPP DO Ot 466.0 ACUTE BRONCHITIS 07/13/2017 HELEN KNAPP DO Ot 535.50 UNSP GASTRITIS GASTRODUODENITIS W/O ME 07/13/2017 HELEN KNAPP DO Ot 780.79 OTH MALAISE FATIGUE 07/13/2017 HELEN KNAPP DO Ot 783.1 ABNORMAL WEIGHT GAIN 07/13/2017 HELEN KNAPP DO Ot 787.01 NAUSEA WITH VOMITING 07/13/2017 HELEN KNAPP DO Ot V28.81 ENCOUNTER FOR ANATOMIC SURVEY 07/13/2017 HELEN KNAPP DO Ot V72.31 ROUTINE GYNECOLOGICAL EXAMINATION 07/13/2017 HELEN KNAPP DO Ot V74.5 SCREEN FOR VENERAL DIS 07/13/2017 HELEN KNAPP DO Ot V76.2 SCREEN MAL NEOP-CERVIX 07/13/2017 HELEN KNAPP DO Ot 641.13 PLACEN PREV HEM-ANTEPART 07/13/2017 HELEN KNAPP DO Ot V28.81 ENCOUNTER FOR ANATOMIC SURVEY 07/13/2017 HELEN KNAPP DO Ot V77.1 SCREEN-DIABETES MELLITUS 07/13/2017 HELEN KNAPP DO Ot V78.0 SCREEN-IRON DEFIC ANEMIA 07/13/2017 ANA PAULA OHARA, NOAH Olmos Ot R10.11 RIGHT UPPER QUADRANT PAIN 07/13/2017 NOAH GOSS MD Ot R51 HEADACHE 07/13/2017 NOAH GOSS MD Ot R10.13 EPIGASTRIC PAIN Procedures Code Description Performed By Performed On PSYCH ISHA LANZA 02/07/2013 71348 STREP A (IN-HOUSE) 02/22/2013 24742 CULTURE THROAT 47542 PSYCH DIAG EVAL W/MED [facility] 02/28/2013 48191 TEST, URINE (IN-HOUSE) 11/02/2013 68463 UA OB DIP 2013 [id number] UA OB DIP 2013 [id number] UA LONG DIP 11/15 73616 ROUTINE VENIPUNCTURE 11/30/2013 12681 UA OB DIP 2013 [id number] TRICHOMONAS (IN-HOUSE) 11/30/2013 80650 SYPHILLIS-[facility] 11/30/2013 82278 HIV ([facility]) 11/30/2013 27244 ANTIBODY SCREEN (order) 11/30/2013 88465 HEP B SURFACE ANTIGEN (STATE) 11/30/2013 16253 GC/CHLAM PROBE (STATE) 11/30/2013 01796 PAP SMEAR 2013 Q0091 PAP SMEAR OBTAIN SMEAR 11/30/2013 41426 CBC 12/01/2013 56912 TSH 12/01/2013 0697582 ANTIBODY SCREEN (RESULT ONLY) 12/01/2013 78154 BLOOD TYPE/Rh FACTOR 12/01/2013 76572 RUBELLA ANTIBODY, IGG 12/02/2013 16217 CULTURE URINE 05/2014 69052 CULTURE UROGENITAL 12/04/2013 97035 US OB - COMPLETE >14 WEEKS 12/27/2013 21209 UA OB DIP 2013 46815 UA OB DIP 2013 65097 UA OB DIP 2013 25123 US OB - FOLLOW UP 02/26/2014 12927 UA OB DIP 2013 13489 ROUTINE VENIPUNCTURE 03/26/2014 42315 OB - FOLLOW UP 03/26/2014 84813 UA OB DIP 2013 46519 CBC 03/27/2014 19335 GLUCOSE LOGAN 1 HOUR 03/27/2014 72429 UA OB DIP 2013 07606 UA OB DIP 2013 69956 UA W/ CULTURE IF INDICATED 05/03/2014 71465 UA OB DIP 2013 72113 CULTURE GROUP B STREP VAG 05/09/2014 57134 UA OB DIP 2013 32139 UA OB DIP 2013 25796 UA OB DIP 2013 04287 UA OB DIP 2013 73.59 MANUAL ASSIST DELIV NEC 06/06/2014 11860 TEST, URINE (IN-HOUSE) 07/18/2014 65667 TEST, URINE (IN-HOUSE) 10/15/2014 Results Encounters ACCT No. Visit Date/Time Discharge Status Pt. Type Provider Facility Loc./Unit Complaint [id number] 11/05/2014 14:56:00 11/05/2014 23: 59:59 [facility] Outpatient ANNA MARIE GOMEZ APRN [id number] 10/15/2014 15:44:00 10/15/2014 23: 59:59 [facility] Outpatient ANNA MARIE GOMEZ APRN [id number] 07/18/2014 13:14:00 07/18/2014 23: 59:59 [facility] Outpatient ANNA MARIE GOMEZ APRN [id number] 07/18/2014 13:14:00 07/18/2014 23: 59:59 CLS Outpatient ANNA MARIE GOMEZ APRN [id number] 05/28/2014 13:50:00 05/28/2014 23: 59:59 CLS Outpatient KNAPP DOHELEN [id number] 05/28/2014 13:50:00 05/28/2014 23: 59:59 CLS Outpatient KNAPP DOHELEN [id number] 05/14/2014 16:01:00 05/14/2014 23: 59:59 CLS Outpatient KNAPP DOHELEN Den [id number] 05/07/2014 14:52:00 05/07/2014 23: 59:59 CLS Outpatient ANNA MARIE GOMEZ APRN [id number] 04/23/2014 15:51:00 04/23/2014 23: 59:59 CLS Outpatient KNAPP DOHELEN Den [id number] 04/23/2014 15:51:00 04/23/2014 23: 59:59 CLS Outpatient KNAPP DOHELEN Den [id number] 04/09/2014 15:39:00 04/09/2014 23: 59:59 CLS Outpatient KNAPP DOHELEN Den [id number] 03/26/2014 15:08:00 03/26/2014 23: 59:59 CLS Outpatient KNAPP DOHELEN Den [id number] 03/26/2014 15:08:00 03/26/2014 23: 59:59 CLS Outpatient KNAPP DOHELEN Den [id number] 03/14/2014 17:45:00 03/14/2014 23: 59:59 C[facility] Outpatient ANNA MARIE GOMEZ APRN [id number] 02/26/2014 10:31:00 02/26/2014 23: 59:59 CLS Outpatient KNAPP DOHELEN [id number] 02/15/2014 09:33:00 02/15/2014 23: 59:59 CLS Outpatient ANNA MARIE GOMEZ APRN [id number] 02/07/2014 16:11:00 02/07/2014 23: 59:59 CLS Outpatient DORA DEL REAL DDS [id number] 01/25/2014 09:09:00 01/25/2014 23: 59:59 CLS Outpatient [id number] 01/24/2014 09:50:00 01/24/2014 23: 59:59 CLS Outpatient KNAPP DO HELEN Crenshaw [id number] 12/27/2013 10:11:00 12/27/2013 23: 59:59 CLS Outpatient KNAPP DOANDRESA K [id number] 12/27/2013 10:11:00 12/27/2013 23: 59:59 CLS Outpatient HELEN KNAPP DO [id number] 12/06/2013 10:54:00 12/06/2013 23: 59:59 CLS Outpatient DANTE DEL REAL DDS Jose Antonio [id number] 11/30/2013 15:05:00 11/30/2013 23: 59:59 CLS Outpatient JASONANNA MARIE Olmos APRN [id number] 11/30/2013 15:05:00 11/30/2013 23: 59:59 CLS Outpatient JASONANNA MARIE Olmos APRN A [id number] 11/15/2013 13:44:00 11/15/2013 23: 59:59 CLS Outpatient JASONANNA MARIE Olmos APRN [id number] 11/02/2013 14:37:00 11/02/2013 23: 59:59 CLS Outpatient JASONANNA MARIE Olmos APRN [id number] 09/26/2013 10:13:00 09/26/2013 23: 59:59 CLS Outpatient NASIMA COREA DANTE Brady [id number] 08/01/2013 09:34:00 08/01/2013 23: 59:59 CLS Outpatient HELEN KNAPP DO [id number] 07/25/2013 10:41:00 07/25/2013 23: 59:59 CLS Outpatient RALF GARCIAAmarilis BARBARA D [id number] 01/06/2013 10:59:00 01/06/2013 23: 59:59 CLS Outpatient [id number] 08/10/2012 08:28:00 08/10/2012 23: 59:59 CLS Outpatient RICHELLE ANMOLNHI [id number] 05/30/2013 10:47:00 Document Registration [id number] 03/28/2013 12:20:00 Document Registration [id number] 02/28/2013 10:07:00 Document Registration [id number] 02/22/2013 14:18:00 Document Registration [id number] 02/07/2013 17:38:00 Document Registration [id number] 11/09/2016 09:23:00 2016 23:59:59 CLS Outpatient NOAH GOSS MD [facility] RAD EPIGASTRIC PAIN [id number] 06/22/2016 13:53:00 2015 23:59:59 CLS Outpatient NOAH GOSS MD [facility] RAD NOCTURNAL HEADACHES [id number] 08/12/2015 08:53:00 2014 23:59:59 CLS Outpatient NOAH GOSS MD [facility] RAD RUQ ABD PAIN [id number] 06/06/2014 00:55:00 2013 14:58:00 DIS Inpatient HELEN KNAPP DO [facility] LDRP SROM,LABOR [id number] 05/13/2014 16:57:00 2013 17:50:00 DIS Outpatient NOAH GOSS MD [facility] WSo LEAKING FLUID [id number] 05/03/2014 16:16:00 2013 17:55:00 DIS Outpatient HELEN KNAPP DO [facility] WSo ABD CRAMPING,LBP,PRESSURE [id number] 04/17/2014 20:26:00 2013 22:10:00 DIS Outpatient HELEN KNAPP DO [facility] WSo BACK,BILAT ARM,BILAT LEG PAIN [id number] 04/12/2014 09:49:00 2013 10:41:00 DIS Outpatient HELEN KNAPP DO [facility] WSo ABD PAIN/TIGHTENING [id number] 04/04/2014 12:21:00 2013 23:59:59 CLS Outpatient HELEN KNAPP DO [facility] RAD F/U GROWTH [id number] 03/18/2014 16:21:00 2013 18:28:00 DIS Outpatient MICHELLE SALMERON MD [facility] WSo LIGHT HEADED DIZZINESS [id number] 03/13/2014 17:55:00 2013 19:05:00 DIS Outpatient HELEN KNAPP DO [facility] WSo CRAMPING [id number] 03/07/2014 09:55:00 2013 23:59:59 CLS Outpatient HELEN KNAPP DO [facility] RAD F/U LOW LYING PLACENTA [id number] 01/02/2014 13:07:00 2013 23:59:59 CLS Outpatient HELEN KNAPP DO [facility] RAD SURVEY [id number] 08/10/2017 09:45:00 PEN Preadmit JOSE PRESLEY DO [facility] ENDO EPIGASTRIC ABD PAIN [id number] 08/06/2017 09:15:00 PEN Preadmit JOSE PRESLEY DO [facility] PREOP EGD [id number] 08/12/2015 08:51:00 Document Registration
[2017-08-04] MEDS ORDERED: SERT25TA5 (12:34)
[2017-08-04 13:48] LABS: BILIRUBIN,URINE NEGATIVE (NEGATIVE); KETONES,URINE NEGATIVE (NEGATIVE); LEUKOCYTE ESTERASE ,URINE 3+ (NEGATIVE); NITRITE,URINE NEGATIVE (NEGATIVE); PH,URINE 7 (5-9); PROTEIN,URINE 1+ (NEGATIVE); UROBILINOGEN,URINE NORMAL (NORMAL)
--- NOTE | 2017-08-04 14:51 | ED GU-Female ---
General Chief Complaint: General Problems/Pain Stated Complaint: BACK ACHE,NAUSEA Nursing Triage Note: AMB TO ROOM C/O BACK PAIN FOR 2 WEEKS, HAS BEEN LATE ON HER PEROID HAS HAD 1 NEG AND 1 POS PREG TEST. TODAY ONSET OF VAG BLEEGNG. WITH CON'T BACK PAIN. REPORTS TRIED TO CALL [facility] AND WAS TOLD HAD NO DR'S AT CLINIC TODAY. Nursing Sepsis Screen: No Definite Risk Source: patient Exam Limitations: no limitations History of Present Illness Time seen by provider: 14:48 Initial Comments The patient is a 27-year-old white female. She presents with a complaint of left-sided low back pain and vaginal spotting today. She reports that she has taken 2 tests at home one of which was negative and the other positive. If she were to be she would estimate 5 weeks. She denies dysuria. She recalls having back pain during the with her first child. She does not normally have back pain with menstrual periods Timing/Duration: week (2 weeks) Severity/Quality: mild, moderate Radiation: other (left low back) Allergies and Home Medications Allergies Coded Allergies: Amoxicillin (Unverified Allergy, Unknown, 04/17/14) Home Medications Sertraline HCl 25 Mg Tablet, (Reported) Constitutional: see HPI EENTM: no symptoms reported Respiratory: no symptoms reported Cardiovascular: no symptoms reported Gastrointestinal: no symptoms reported Genitourinary: no symptoms reported Musculoskeletal: back pain Skin: no symptoms reported Psychiatric/Neurological: No Symptoms Reported Endocrine: No Symptoms Reported Hematologic/Lymphatic: No Symptoms Reported Past Vltlqwd-Apjtlb-Aokzsy Hx Patient Social History Alcohol Use: Occasionally Uses Recreational Drug Use: No Smoking Status: Current Everyday Smoker Recent Foreign Travel: No Contact w/Someone Who Travel: No Recent Infectious Disease Expo: No Immunizations Up To Date Tetanus Booster (TDap): Unknown PED Vaccines UTD: No Date of Influenza Vaccine: Aug 23, 2013 Surgeries History of Surgeries: No Respiratory History of Respiratory Disorde: No Cardiovascular History of Cardiac Disorders: No Neurological History of Neurological Disord: No Reproductive System Last Menstrual Period: Jun 27, 2017 Hx Reproductive Disorders: No Gastrointestinal History of Gastrointestinal Di: No Musculoskeletal History of Musculoskeletal Dis: No Endocrine History of Endocrine Disorders: No Cancer History of Cancer: No Psychosocial History of Psychiatric Problem: Yes Behavioral Health Disorders: Anxiety Integumentary History of Skin or Integumenta: No Blood Transfusions History of Blood Disorders: No Adverse Reaction to a Blood Tr: No Family Medical History Family Medial History: Cardiovascular disease MATERNAL GRANDFATHER Diabetes mellitus 19 MOTHER Not obtainable due to adoption (Pt. only able to answer few questions d/t ) Physical Exam Vital Signs Vital Sign - Last 12Hours 08/04/17 12:17 Temp 97.8 Pulse 82 Resp 18 B/P (MAP) 125/83 Pulse Ox 100 Capillary Refill : Less Than 3 Seconds General Appearance: mild distress HEENT: normal ENT inspection Neck: full range of motion Cardiovascular: normal peripheral pulses, regular rate, rhythm, no edema, no gallop, no JVD, no murmur Respiratory: chest non-tender, lungs clear, normal breath sounds, no respiratory distress, no accessory muscle use, respiratory distress Gastrointestinal: normal bowel sounds, non tender, soft, no organomegaly, no pulsatile mass, abnormal bowel sounds Back: normal inspection, CVA tenderness (L) (lumbar) Extremities: normal range of motion, non-tender, normal inspection, no pedal edema, no calf tenderness, normal capillary refill, pelvis stable Neurologic/Psychiatric: children counselor II-XII nml as tested, no motor/sensory deficits, alert, normal mood/affect, oriented x 3 Skin: normal color, warm/dry, cyanosis, cool, diaphoresis, pallor Lymphatic: no adenopathy Progress/Results/Core Measures Results/Orders Lab Results Laboratory Tests Test 08/04/17 13:39 Range/Units Urine Color YELLOW Urine Clarity SLIGHTLY CLOUDY Urine pH 7 5-9 Urine Specific [place] 1.010 L 1.016-1.022 Urine Protein 1+ H NEGATIVE Urine Glucose (UA) NEGATIVE NEGATIVE Urine Ketones NEGATIVE NEGATIVE Urine Nitrite NEGATIVE NEGATIVE Urine Bilirubin NEGATIVE NEGATIVE Urine Urobilinogen NORMAL NORMAL MG/DL Urine Leukocyte Esterase 3+ H NEGATIVE Urine RBC (Auto) 5+ H NEGATIVE Urine RBC 5-10 H /HPF Urine WBC 10-25 H /HPF Urine Squamous Epithelial Cells 10-25 H /HPF Urine Crystals NONE /LPF Urine Bacteria FEW H /HPF Urine Casts NONE /LPF Urine Mucus NEGATIVE /LPF Urine Culture Indicated YES Human Chorionic Gonadotropin, Quant < 5 <5 MIU/ML My Orders Orders - TD DELACRUZ MD Hcg,Quantitative (08/04/17 13:24) Ua Culture If Indicated (08/04/17 13:25) Urine Culture (08/04/17 13:39) Us Ob<14 Wks Sngle W/Transvag (08/04/17 14:46) Vital Signs/I&O Vital Sign - Last 12Hours 08/04/17 12:17 Temp 97.8 Pulse 82 Resp 18 B/P (MAP) 125/83 Pulse Ox 100 Blood Pressure Mean: 97 Departure Impression Impression: Primary Impression: likely miscarriage early Additional Impression: urinary tract infection Disposition: HOME, SELF-CARE Condition: Stable/Unchanged Departure-Patient Inst. Decision time for Depature: 16:21 Referrals: NOAH GOSS MD (PCP/Family) Primary Care Physician Patient Instructions: Urinary Tract Infection, Adult (DC) Add. Discharge Instructions: All discharge instructions reviewed with patient and/or family. Voiced understanding. See your provider in approximately 2 weeks for a follow-up hCG quantitative. Take Bactrim for urinary tract infection. Scripts Sulfamethoxazole/Trimethoprim (Bactrim Ds Tablet) 1 Each Tablet 1 EACH PO twice a day, #14 TAB Prov: TD DELACRUZ MD 08/04/17 TD DELACRUZ MD Aug 04, 2017 14:51
--- NOTE | 2017-08-04 16:04 | Diagnostic Imaging Report ---
EXAMINATION: OB ultrasound. INDICATION: Vaginal bleeding. Positive test yesterday. FINDINGS: The uterus is 8.7 x 5.0 x 4.1 cm. The endometrial stripe is the hyperemic. Its is 1.2 CM in thickness. There is no myometrial mass. The right ovary is 3.3 x 2.6 x 2.2 cm. The left ovary is 2.3 x 2.0 x 2.2 cm. Arterial and venous waveforms are demonstrated in both ovaries. There is no adnexal mass identified. IMPRESSION: Hyperemic endometrium with no focal lesion seen. The findings may relate to very early normal , failed or occult ectopic . Correlate with serial beta-hCGs and followup ultrasound. Dictated by: Dictated on workstation # [id number]
[2017-08-04] MEDS ORDERED: SULF1TAB35 PO (16:28)
[2017-08-04] MEDS ORDERED: ACETAMINOPHEN 500 MG TAB (TYLENOL) PO ONE (16:30)
[2017-08-04 16:40] VITALS: BP 125/83
== END 2017-08-04 16:34 | disposition home or self-care (01) ==
LOC: EDUNIT# 12:04 → ER 12:06
DX: N39.0 Urinary tract infection, site not specified (principal); F41.9 Anxiety disorder, unspecified; F17.200 Nicotine dependence, unspecified, uncomplicated; Z82.49 Family history of ischemic heart disease and other diseases of the circulatory system
CPT/HCPCS: 36415; 76801; 76817; 81000; 84702; 87088; 99283

== ENCOUNTER 2017-09-28 05:43 | Outpatient (CLI) | payer SELFPAY ==
[~2017-09-28] VITALS: Ht 157.5 cm; Wt 77.1 kg
[~2017-09-28 05:43] MED LIST changes: +SERT25TA5; +SULF1TAB35 PO
[2017-09-28] MEDS ORDERED: OMEP40CA36 PO (15:09)
[2017-09-28] MEDS ORDERED: CETI10TA17 PO (15:09)
== END 2017-09-28 15:11 ==
LOC: PREOP 05:43
PROVIDERS: ATTEND Surgery
DX: Z01.818 Encounter for other preprocedural examination (principal); R10.13 Epigastric pain

== ENCOUNTER 2017-10-05 08:04 | Day surgery (SDC) | payer SELFPAY ==
[~2017-10-05] VITALS: Ht 157.5 cm; Wt 77.1 kg
[~2017-10-05 08:04] MED LIST changes: +CETI10TA17 PO; +OMEP40CA36 PO
[2017-10-05] MEDS ORDERED: LACTATED RINGERS 1,000 ML IV STA (08:09)
--- OUTSIDE RECORDS SUMMARY | 2017-10-05 08:11 | XMS REPORT ---
Author Author STANTON JUAREZ [facility] Address [address] [place] [address] Care Team Providers Care Shake Packer Name Role Phone STANTON JUAREZ Unavailable PROBLEMS Type Condition ICD9-CM Code OKO82-OS Code Onset Dates Condition Status SNOMED Code Problem Allergic rhinitis, unspecified allergic rhinitis type J30.9 Active 92063135 Problem Gastroesophageal reflux disease, esophagitis presence not specified K21.9 Active 263079674 Problem Reflux gastritis K29.60 Active 07395311 Problem Adjustment disorder with disturbance of emotion F43.29 Active 57726284 Problem Major depression single episode, 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 Active 97896002 Problem Epigastric pain R10.13 Active 02033282 Problem BMI 32.0-32.9,adult Z68.32 Active 011056507 Problem Anxiety, generalized F41.1 Active 50721386 ALLERGIES No Information SOCIAL HISTORY Never Assessed PLAN OF CARE Activity Details Follow Up Next available, 2 Weeks Reason:Anxiety, adjustment disorder, relationship problems VITAL SIGNS MEDICATIONS Unknown Medications RESULTS No Results PROCEDURES Procedure Date Ordered Result Body Site Psychotherapy, patient &/family, 30 minutes, established patient March 17, 2017 IMMUNIZATIONS No Known Immunizations MEDICAL (GENERAL) HISTORY Type Description Date Medical History Allergic Rhinitis Medical History Hospitalization History childbirth only
--- OUTSIDE RECORDS SUMMARY | 2017-10-05 08:11 | XMS REPORT ---
Author Author OTILIA PEREIRA [facility] Address [address] [place] [address] Care Team Providers Care Security Assistant Name Role Phone OTILIA PEREIRA Unavailable PROBLEMS Type Condition ICD9-CM Code MLB15-ES Code Onset Dates Condition Status SNOMED Code Problem Allergic rhinitis, unspecified allergic rhinitis type J30.9 Active 08665390 Problem Gastroesophageal reflux disease, esophagitis presence not specified K21.9 Active 751255095 Problem Reflux gastritis K29.60 Active 99936557 Problem Adjustment disorder with disturbance of emotion F43.29 Active 61430592 Problem Major depression single episode, 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
[2017-10-05] MEDS ORDERED: HURRICAINE EXT TUBE (BENZOCAINE) XX PRN (08:15)
--- NOTE | 2017-10-05 08:27 | Progress Note-Pre Operative ---
Pre-Operative Progress Note H&P Reviewed The H&P was reviewed, patient examined and no changes noted. Date Seen by Provider: Oct 05, 2017 Time Seen by Provider: 08: Date H&P Reviewed: Oct 05, 2017 Time H&P Reviewed: 08:27 Pre-Operative Diagnosis: epigastric abdominal pain. JOSE PRESLEY DO Oct 05, 2017 08:27
[2017-10-05 08:30] VITALS: BP 119/88
[2017-10-05] MEDS ORDERED: proPOfol 200 MG/20 ML (DIPRIVAN) VIAL IV ONE (09:22)
[2017-10-05] MEDS ORDERED: MIDAZOLAM 5 MG/5 ML (VERSED) VIAL ONE (09:22)
--- NOTE | 2017-10-05 09:45 | Progress Note-Post Operative ---
Post-Operative Progess Note Surgeon (s)/Case Packer And Sealer (s) Surgeon JOSE PRESLEY DO Case Packer And Sealer: na Pre-Operative Diagnosis epigastric abdominal pain. Post-Operative Diagnosis hiatal hernia, reflux esophagitis Procedure & Operative Findings Date of Procedure 10/05/17 Procedure Performed/Findings egd c biopsies Anesthesia Type per supervisor dairy sanitation Estimated Blood Loss Estimated blood loss (mL): none Specimens/Packing Specimens Removed antrum, ge junction JOSE PRESLEY DO Oct 05, 2017 09:45
[2017-10-05] MEDS ORDERED: PANT40TA2 PO (09:46)
[2017-10-05] MEDS ORDERED: HURRICAINE EXT TUBE (BENZOCAINE) ONE (09:47)
--- NOTE | 2017-10-05 09:47 | Discharge Inst-Simple/Standard ---
Discharge Inst-Standard Discharge Medications New, Converted or Re-Newed RX: Transmitted to Pharmacy Patient Instructions/Follow Up Plan of Care/Instructions/FU: 3 weeks Deo Activity as Tolerated: Yes Discharge Diet: Regular Diet (small frequent meals) JOSE PRESLEY DO Oct 05, 2017 09:47
[2017-10-05 09:50] VITALS: BP 119/88
[2017-10-05 10:20] VITALS: BP 125/73
[2017-10-05 10:27] VITALS: BP 125/73
--- NOTE | 2017-10-05 14:32 | OPERATIVE REPORT ---
DATE OF SERVICE: 10/05/2017 PREOPERATIVE DIAGNOSIS: Epigastric abdominal pain. POSTOPERATIVE DIAGNOSES: Hiatal hernia, reflux esophagitis. PROCEDURE: EGD with biopsy. SURGEON: Jose Desouza DO. ANESTHESIA: Per GRINDING AND SPRAYING SUPERVISOR. ESTIMATED BLOOD LOSS: None. COMPLICATIONS: None. INDICATIONS: The patient is a 27-year-old female who has been having epigastric abdominal pain. She was recommended to have EGD. She understands risks and benefits of procedure and wished to proceed with procedure. Consent was on chart. DESCRIPTION OF PROCEDURE: The patient was taken to the endoscopy suite, placed in left lateral recumbent position. Timeout was performed. Scope was inserted into mouth, down the esophagus, stomach and into the duodenum without difficulty. There were no polyps, mass or ulcerations within the duodenum. The scope was slowly retracted back into the stomach, which was further insufflated. Some just slight erythematous changes in the stomach, for which biopsy of the antrum was obtained. The scope was retroflexed noting a hiatal hernia. No other pathology was noted. Scope was returned to its normal position, slowly withdrawn. Some slight erythematous changes consistent with reflux esophagitis in the distal esophagus. At the GE junction, biopsy was obtained. Scope was slowly retracted back noting no other pathology. The patient tolerated the procedure well without any complications. She was taken to the recovery room in stable condition. RECOMMENDATIONS: The patient will be started on Protonix 40 mg daily. We will see how she does on this. We will have her follow up in 3 weeks to discuss her symptoms and pathology. Job ID: [id number] DocumentID: [id number] Dictated Date: 10/05/2017 09:49:52 Eyeglass Cutter Date: 10/05/2017 14:32:28 Dictated By: JOSE DESOUZA DO [facility]
== END 2017-10-05 10:30 | disposition home or self-care (01) ==
LOC: ENDO 08:04
PROVIDERS: ATTEND Surgery
DX: K21.0 Gastro-esophageal reflux disease with esophagitis (principal); K44.9 Diaphragmatic hernia without obstruction or gangrene; F41.9 Anxiety disorder, unspecified; Z87.891 Personal history of nicotine dependence; Z79.899 Other long term (current) drug therapy
CPT/HCPCS: 36415; 84703

== ENCOUNTER → 2017-11-05 | Outpatient (CLI) | payer OTHER ==
[~2017-11-05] MED LIST changes: +PANT40TA2 PO
--- NOTE | 2017-11-05 09:26 | Diagnostic Imaging Report ---
PROCEDURE: US Gallbladder. TECHNIQUE: Multiple real-time grayscale images were obtained over the right upper quadrant in various projections. INDICATION: Abdominal pain. FINDINGS: The previous gallbladder ultrasound exam of 10/30/2016 failed to show any sign of an acute abnormality of the gallbladder. On this exam, there is still no evidence for cholelithiasis or acute cholecystitis. As on the prior exam, the common bile duct was obscured. The liver and right kidney are unremarkable. The pancreas and proximal aorta were also obscured by bowel gas. IMPRESSION: 1. There is no evidence for cholelithiasis or acute cholecystitis. The common bile duct was obscured and difficult to evaluate. 2. If clinical concern regarding an acute abnormality of the gallbladder persists and further imaging is desired, then a nuclear medicine hepatobiliary scan would be recommended for additional study. Dictated by: Dictated on workstation # [id number]
== END ==
LOC: RAD 07:06
PROVIDERS: ATTEND Surgery
DX: R10.13 Epigastric pain (principal)
CPT/HCPCS: 76705

== ENCOUNTER → 2017-12-13 | Outpatient (CLI) | payer SELFPAY ==
[2017-12-13] MEDS: CATHETER FLUSH 10 ML SYR IV PRN ×2 (12:48→12:49)
--- NOTE | 2017-12-13 15:35 | Diagnostic Imaging Report ---
INDICATION: Abdominal pain. TECHNIQUE: The patient was administered 5.3 mCi of technetium 99m Choletec and imaging over the abdomen was performed. Next, the patient was administered 8 ounces of Ensure Plus at 1 hour and the gallbladder ejection fraction was calculated. FINDINGS: There is homogeneous uptake of activity by the liver with prompt excretion of activity into the gallbladder and common duct. There is normal passage of activity into the small bowel. The gallbladder ejection fraction is low at 15%. Normal values are 30% or greater. IMPRESSION: 1. No evidence of cystic duct or common bile duct obstruction. 2. Low gallbladder ejection fraction of 15%. Dictated by: Dictated on workstation # [id number]
== END ==
LOC: CARD 12:23
PROVIDERS: ATTEND Surgery
DX: R10.13 Epigastric pain (principal); K82.8 Other specified diseases of gallbladder
CPT/HCPCS: 78227

== ENCOUNTER 2017-12-24 10:00 | Outpatient (CLI) | payer SELFPAY ==
[~2017-12-24] VITALS: Ht 157.5 cm; Wt 77.1 kg
[~2017-12-24 10:00] MED LIST changes: +SERT100T8 PO
== END 2017-12-24 10:16 ==
LOC: PREOP 10:00
PROVIDERS: ATTEND Surgery
DX: Z01.818 Encounter for other preprocedural examination (principal); K82.8 Other specified diseases of gallbladder

== ENCOUNTER 2017-12-27 07:20 | Day surgery (SDC) | payer SELFPAY ==
[~2017-12-27] VITALS: Ht 157.5 cm; Wt 77.1 kg
[2017-12-27 07:24] VITALS: BP 130/88
[2017-12-27] MEDS ORDERED: CLINDAMYCIN 600 MG/50 ML IVPB 50 ML IV ONE (08:00)
[2017-12-27 08:26] LABS: BASOPHILS % (AUTO) 1 % (0-10); EOSINOPHILS # (AUTO) 0.1 10^3/uL (0.0-0.3); EOSINOPHILS % (AUTO) 2 % (0-10); HEMATOCRIT 42 % (35-52); HEMOGLOBIN 14.6 G/DL (11.5-16.0); LYMPHOCYTES # (AUTO) 2.8 X 10^3 (1.0-4.0); LYMPHOCYTES % (AUTO) 37 % (12-44); MEAN CORPUSCULAR HEMOGLOBIN 31 PG (25-34); MEAN CORPUSCULAR HGB CONC 35 G/DL (32-36); MEAN CORPUSCULAR VOLUME 88 FL (80-99); MEAN PLATELET VOLUME 9.4 FL (7.4-10.4); MONOCYTES # (AUTO) 0.7 X 10^3 (0.0-1.0); MONOCYTES % (AUTO) 9 % (0-12); NEUTROPHILS # (AUTO) 3.9 X 10^3 (1.8-7.8); NEUTROPHILS % (AUTO) 52 % (42-75); PLATELET COUNT 268 10^3/uL (130-400); RED BLOOD COUNT 4.76 10^6/uL (4.35-5.85); RED CELL DISTRIBUTION WIDTH 12.2 % (10.0-14.5); WHITE BLOOD COUNT 7.6 10^3/uL (4.3-11.0)
[2017-12-27] MEDS ORDERED: MIDAZOLAM 2 MG/2 ML (VERSED) VIAL IV ONE (08:45)
[2017-12-27] MEDS ORDERED: FAMOTIDINE 20MG/2ML IV (PEPCID) IV ONE (08:45)
[2017-12-27] MEDS: LACTATED RINGERS 1,000 ML IV PRN ×2 (09:11→11:41)
[2017-12-27] MEDS ORDERED: fentaNYL INJECTION 100 MCG/2 ML AMP ONE ×2 (09:55→12:19)
[2017-12-27] MEDS ORDERED: MIDAZOLAM 2 MG/2 ML (VERSED) VIAL ONE (09:55)
--- NOTE | 2017-12-27 10:44 | Progress Note-Pre Operative ---
Pre-Operative Progress Note H&P Reviewed The H&P was reviewed, patient examined and no changes noted. Date Seen by Provider: Dec 27, 2017 Time Seen by Provider: 10:44 Date H&P Reviewed: Dec 27, 2017 Time H&P Reviewed: 10:44 Pre-Operative Diagnosis: biliary dyskinesia JOSE PRESLEY DO Dec 27, 2017 10:44
[2017-12-27] MEDS ORDERED: LIDOCAINE 1% INJ 20 ML (XYLOCAINE) VIAL ONE (10:49)
[2017-12-27] MEDS ORDERED: BUPIVACAINE 0.5% 30 ML (SENSORCAINE) VIAL ONE (10:49)
[2017-12-27] MEDS ORDERED: DEXAMETHASONE 10 MG/ML (DECADRON) 1 ML VIAL ONE (11:44)
[2017-12-27] MEDS ORDERED: ONDANSETRON 4 MG/2 ML (SDV) Z0FRAN ONE (11:44)
[2017-12-27] MEDS ORDERED: ROCURONIUM 10 MG/ML 5 ML SYRINGE IV ONE (11:44)
[2017-12-27] MEDS ORDERED: proPOfol 200 MG/20 ML (DIPRIVAN) VIAL IV ONE (11:44)
[2017-12-27] MEDS ORDERED: LIDOCAINE PF 2% 5 ML (XYLOCAINE) VIAL ONE (11:44)
[2017-12-27] MEDS ORDERED: SEVOFLURANE (ULTANE) 15 ML INHAL SOLN ONE ×6 (11:44→12:08)
[2017-12-27] MEDS ORDERED: DOCU-143 PO (12:06)
[2017-12-27] MEDS ORDERED: ACHD5005 PO (12:06)
--- NOTE | 2017-12-27 12:08 | Discharge Inst-Simple/Standard ---
Discharge Inst-Standard Discharge Medications New, Converted or Re-Newed RX: RX on Chart Patient Instructions/Follow Up Plan of Care/Instructions/FU: 2 WEEKS FERNANDEZ Activity as Tolerated: No Discharge Diet: Regular Diet Other Inst to Patient Follow up Appt: Make appointment for 2 weeks. Instructions: No lifting greater than 10 pounds. No strenuous activity. May shower in 24 hours, no tub bath or soaking. Use incentive spirometer at home as directed. No Smoking Skin/Wound Care: You have special glue over incisions it will fall off on its own. Symptoms to Report: Appetite Changes, Extremity Discoloration, Numbness/Tingling, Swelling Increased , Bleeding Excessive, Eyesight Changes, Pain Increased, Urine Color Change, Constipation(Persistent), Fever over 101 degree F, Pain/Pressure in chest, Urinating Difficulty, Cough Up/Vomit Blood, Heart Beat Irreg/Pounding, Pain/ Pressure in jaw, Vaginal Bleeding Increase, Cramps in feet or legs, Lightheadedness, Pain/Pressure in shoulder, Diarrhea(Persistent), Memory Changes Suddenly, Questions/Concerns, Weight gain consecutive days, Dizziness/ Fainting, Nausea/Vomiting, Shortness of Breath, Weight gain over 2 pounds. If eyes or skin turn yellow notify physician. If questions or concerns contact your physician Or seek help at emergency department. JOSE PRESLEY DO Dec 27, 2017 12:08
[2017-12-27] MEDS ORDERED: GLYCOPYRROLATE 0.2 MG/ML (ROBINUL) 2 ML VIAL ONE (12:09)
[2017-12-27] MEDS ORDERED: NEOSTIGMINE (BLOXIVERZ ) 1 MG/1ML 10 ML VIAL ONE (12:09)
--- NOTE | 2017-12-27 12:09 | Progress Note-Post Operative ---
Post-Operative Progess Note Surgeon (s)/Stock Car Driver (s) Surgeon JOSE PRESLEY DO Stock Car Driver: Yamile Pre-Operative Diagnosis biliary dyskinesia Post-Operative Diagnosis same Procedure & Operative Findings Date of Procedure 12/27/17 Procedure Performed/Findings lap arnaldo c ioc Anesthesia Type gen Estimated Blood Loss Estimated blood loss (mL): min Specimens/Packing Specimens Removed gallbladder JOSE PRESLEY DO Dec 27, 2017 12:09
--- NOTE | 2017-12-27 12:13 | Diagnostic Imaging Report ---
INDICATION: Intraoperative plain exam. Fluoroscopy was provided in the OR during performance of an intraoperative cholangiogram. Contrast has been injected via the cystic duct remnant. The extra hepatic bile duct is of normal caliber. No filling defects are seen to suggest retained stone. Contrast does pass into the duodenum. 12 seconds of fluoroscopic time was utilized. IMPRESSION: Fluoroscopy for intraoperative cholangiogram. Dictated by: Dictated on workstation # [id number]
[2017-12-27] MEDS ORDERED: HYDROcodone/APAP 5 MG/325 MG (LORTAB) TAB PO PRN (12:15)
[2017-12-27] MEDS: fentaNYL INJECTION 100 MCG/2 ML AMP IVP PRN ×2 (12:23→12:40)
[2017-12-27] MEDS ORDERED: MEPERIDINE (DEMEROL) INJ 50 MG/ML IVP PRN (12:30)
[2017-12-27] MEDS ORDERED: ONDANSETRON 4 MG/2 ML (SDV) Z0FRAN IVP PRN (12:30)
[2017-12-27 13:15] VITALS: BP 108/70
[2017-12-27 13:45] VITALS: BP 111/91
[2017-12-27 14:23] VITALS: BP 124/81
--- NOTE | 2017-12-27 14:27 | Anesthesia-General Post-Op ---
General Patient Condition Mental Status/LOC: Same as Preop Cardiovascular: Satisfactory Nausea/Vomiting: Absent Respiratory: Satisfactory Pain: Controlled Complications: Absent Post Op Complications Complications None Follow Up Care/Instructions Patient Instructions None needed. Anesthesia/Patient Condition Patient Condition Patient was doing well, C/O minimal abdominal pain which is to be expected, stable vital signs, no apparent adverse anesthesia problems. ABI ACE DO Dec 27, 2017 14:27
[2017-12-27 15:00] VITALS: BP 124/81
--- NOTE | 2017-12-28 00:12 | OPERATIVE REPORT ---
DATE OF SERVICE: 12/27/2017 PREOPERATIVE DIAGNOSIS: Biliary dyskinesia. POSTOPERATIVE DIAGNOSIS: Biliary dyskinesia. PROCEDURE: Laparoscopic cholecystectomy with intraoperative cholangiogram. SURGEON: Jose Desouza DO OPTICS MANUFACTURING TECHNICIAN: Dr. Ovalle, assisted in retraction, dissection and closure. ANESTHESIA: General. ESTIMATED BLOOD LOSS: Minimal. COMPLICATIONS: None. INDICATIONS: The patient is a 27-year-old female who has been having epigastric pain, nausea and vomiting. Workup was consistent with biliary dyskinesia. She understands risks and benefits of procedure and wished to proceed with the procedure. Consent was signed and on the chart. DESCRIPTION OF PROCEDURE: The patient was taken to the operating suite, she was prepped and draped in sterile fashion. Surgical pause was performed. An Rian technique was used to enter the abdomen just above the umbilicus, 0 Vicryl suture was placed in [id number] fashion for closure at the end. The balloon trocar was inserted in the abdomen and pneumoperitoneum was achieved. Under direct visualization of the laparoscope, a 5 mm trocar was placed in the subxiphoid region and two 5 mm trocars were placed in the right upper quadrant. Gallbladder was grasped and elevated. There were some slight adhesions to the gallbladder, which were then taken down both bluntly and with cautery dissection. Clips were placed on the proximal and distal portion of the cystic artery. The clips were placed on the distal portion of the cystic duct and then the duct was then partially transected. Arrow catheter was inserted into the duct and a clip was placed to hold in place. Cholangiogram was then performed. There were no filling defects. Contrast made its way into the duodenum without difficulty. The clip was removed and the catheter was removed. Clips were placed on the proximal portion of the cystic duct and the cystic duct and artery were then transected completely. Hook cautery was used to dissect the gallbladder from the gallbladder fossa achieving hemostasis. There was a small hole created in the gallbladder, which had caused little bit of leaking of bile. Once gallbladder was removed, was placed in an Endobag and removed through the 12 mm trocar site. Copious amounts of irrigation used to irrigate the abdomen and suctioned out. Hemostasis had been achieved. The abdomen was then desufflated, the trocars were removed. The 0 Vicryl was placed at the 12 mm fascial defect of the umbilicus was then closed. The skin was then closed using 4-0 Monocryl in a subcuticular fashion. The area was then washed and dried and a SwiftSet was placed over the incisions. The patient tolerated procedure well without complications. She was taken to recovery room in stable condition. Job ID: [id number] DocumentID: [id number] Dictated Date: 12/27/2017 14:07:04 Top Inventory Control Executive Date: 12/28/2017 00:11:59 Dictated By: JOSE DESOUZA DO
== END 2017-12-27 15:00 | disposition home or self-care (01) ==
LOC: SDC 07:20
PROVIDERS: ATTEND Surgery
DX: K82.8 Other specified diseases of gallbladder (principal); K21.9 Gastro-esophageal reflux disease without esophagitis; Z11.2 Encounter for screening for other bacterial diseases; Z88.1 Allergy status to other antibiotic agents; Z79.899 Other long term (current) drug therapy; Z87.891 Personal history of nicotine dependence
CPT/HCPCS: 36415; 84703; 85025; 87081

== ENCOUNTER → 2018-04-05 | Outpatient (CLI) | payer MEDICAID, OTHER ==
[~2018-04-05] MED LIST changes: +ACHD5005 PO; +DOCU-143 PO
--- NOTE | 2018-04-05 18:07 | Diagnostic Imaging Report ---
PROCEDURE: US OB SINGLE FETUS <14 WKS. TECHNIQUE: Multiple real-time grayscale images were obtained over the gravid uterus in various projections. INDICATION: Assessments for size and dates. FINDINGS: The uterus measures 9.4 x 6.2 x 6.8 cm. There is intrauterine fluid collection compatible with a gestational sac. The gestational sac configuration and morphology are unremarkable. Yolk sac is present. A pole is present which measures 0.91 cm with an estimated age of 7 weeks 0 days for an estimated date of delivery 11/22/2018. The placenta is not demonstrated yet. cardiac activity 133 beats per minute. There appears to be a small subchorionic fluid collection, somewhat difficult to quantify. Imaging of the adnexa demonstrates nonvisualization of either ovary. This could be owing to position and/or obscuration from bowel gas. IMPRESSION: Findings compatible with an early viable intrauterine , estimated age of 7 weeks 0 days for a sonographically estimated date of delivery 11/22/2018. There appears to be the presence of a subchorionic fluid collection, likely a hemorrhage. Short-term followup imaging is recommended to document continued viability and appropriate development. Dictated by: Dictated on workstation # [id number]
== END ==
LOC: RAD 13:19
PROVIDERS: ATTEND Family Medicine
DX: Z34.91 Encounter for supervision of normal pregnancy, unspecified, first trimester (principal); Z3A.01 Less than 8 weeks gestation of pregnancy
CPT/HCPCS: 76801

== ENCOUNTER → 2018-04-25 | Outpatient (CLI) | payer MEDICAID ==
--- NOTE | 2018-04-25 13:55 | Diagnostic Imaging Report ---
INDICATION: Followup subchorionic bleed. TECHNIQUE: Multiple Real-time grayscale images were obtained over the gravid uterus. COMPARISON: 04/05/2018. FINDINGS: There is single live intrauterine of approximately 9 weeks 6 days gestational age. The heart rate was recorded at 163 BPM. A subchronic bleed is noted measuring 13 mm x 9 mm x 11 mm. This was not measured on the prior ultrasound but appears to be very similar in appearance. No new region of hemorrhage is identified. The adnexa are unremarkable. IMPRESSION: Single live IUP of 9 weeks 6 days gestational age showing normal interval growth when compared with the prior exam from 04/05/2018. The small subchronic bleed appears stable as well. Dictated by: Dictated on workstation # [id number]
== END ==
LOC: RAD 09:57
PROVIDERS: ATTEND Family Medicine
DX: O46.8X1 Other antepartum hemorrhage, first trimester (principal); Z3A.09 9 weeks gestation of pregnancy
CPT/HCPCS: 76816

== ENCOUNTER → 2018-05-25 | Outpatient (CLI) | payer MEDICAID ==
--- NOTE | 2018-05-25 11:33 | Diagnostic Imaging Report ---
INDICATION: Followup subchorionic bleed. TECHNIQUE: Multiple real-time grayscale images were obtained over the gravid uterus. COMPARISON: 04/25/2018. FINDINGS: There is a single live intrauterine with heart rate of approximately 161 beats minute. The placenta appears to be developing anteriorly. Amniotic fluid volume and gestational sac shape appears within normal limits. Previously noted subchorionic hemorrhage is no longer visualized. Right ovary is unremarkable. Left ovary was not visualized. IMPRESSION: Single live IUP. Previously noted subchorionic hemorrhage is no longer present. Dictated by: Dictated on workstation # [id number]
== END ==
LOC: RAD 09:53
PROVIDERS: ATTEND Family Medicine
DX: O46.8X2 Other antepartum hemorrhage, second trimester (principal); Z3A.14 14 weeks gestation of pregnancy
CPT/HCPCS: 76816

== ENCOUNTER → 2018-07-18 | Outpatient (CLI) | payer MEDICAID ==
--- NOTE | 2018-07-18 16:06 | Diagnostic Imaging Report ---
INDICATION: Size and dates. TECHNIQUE: Multiple real-time grayscale images were obtained over the gravid uterus. COMPARISON: 05/25/2018 FINDINGS: There is a single living intrauterine in a cephalic presentation. There is a normal volume of amniotic fluid. Placenta is anterior. No previa. Anatomical survey is unremarkable apart from the cord insertion which was difficult to visualize. There is a four-chambered heart. Heart rate is 136 beats per minute and regular. Cervical length 4.2 cm. Biometrical measurements are as follows: Biparietal 5.46 cm, age 22 weeks 5 days. Head circumference 19.79 cm, age 22 weeks 0 days. Abdominal circumference 18.48 cm, age 23 weeks 2 days. Femur length 3.81 cm, age 22 weeks 2 days. Sonographic estimate age: 22 weeks 4 days. Sonographic estimated date of delivery: 11/17/2018. Estimated Weight: 528 gm (+/- 77 gm). LMP percentile: 85%. heart rate: 136 beats per minute. number: 1 of 1. IMPRESSION: 1. Single living intrauterine with sonographically estimated gestational age of 22 weeks 4 days and estimated date of confinement of 11/17/2018. 2. Limited evaluation of the cord insertion due to positioning. Dictated by: Dictated on workstation # [id number]
== END ==
LOC: RAD 14:26
PROVIDERS: ATTEND Family Medicine
DX: Z34.92 Encounter for supervision of normal pregnancy, unspecified, second trimester (principal); Z3A.22 22 weeks gestation of pregnancy
CPT/HCPCS: 76805

== ENCOUNTER → 2018-08-22 | Outpatient (CLI) | payer MEDICAID ==
--- NOTE | 2018-08-22 15:41 | Diagnostic Imaging Report ---
INDICATION: Followup cord insertion. TECHNIQUE: Multiple real-time grayscale images were obtained over the gravid uterus. COMPARISON: 07/18/2018. FINDINGS: There is a single live fetus in a cephalic presentation. heart rate was recorded at 160 beats per minute. The placenta is anterior. Amniotic fluid volume is normal. Cervical length is 4.7 cm. Cord insertion is unremarkable. IMPRESSION: Unremarkable limited obstetrical ultrasound. Dictated by: Dictated on workstation # [id number]
== END ==
LOC: RAD 12:55
PROVIDERS: ATTEND Family Medicine
DX: Z36.89 Encounter for other specified antenatal screening (principal); Z3A.00 Weeks of gestation of pregnancy not specified
CPT/HCPCS: 76816

== ENCOUNTER 2018-11-22 02:09 | Inpatient (IN) | payer MEDICAID ==
[2018-11-22] VITALS (10 sets, daily range): BP systolic 114–134; BP diastolic 65–89
[~2018-11-22] VITALS: Ht 157.5 cm; Wt 83.9 kg
[2018-11-22] MEDS ORDERED: OXYTOCIN/NORMAL SALINE 500 ML IV ONE (02:12)
[2018-11-22] MEDS ORDERED: D5 LR IV SOLUTION 1,000 ML IV SCH (03:20)
--- NOTE | 2018-11-22 03:27 | History & Physical-OB ---
OB - Chief Complaint & HPI Date/Time Date of Admission: Date of Admission: Nov 22, 2018 at 02:10 Date seen by a Provider: Nov 22, 2018 Time Seen by a Provider: 02:24 Chief Complaint/History OB-Reason for Admission/Chief: Onset of Labor Hx : 3 Hx Para: 1011 Expected Date of Delivery: Nov 20, 2018 Gestational Age in Weeks: 40 Gestational Age in Days: 2 History of Labs A+, antibody neg, RI. Hep B/HIV/RPR NR. Hep C neg. GC/chlamydia neg. 3 hour glucola neg. GBS neg. Allergies and Home Medications Allergies Coded Allergies: amoxicillin (Unverified Allergy, Unknown, 12/24/17) Home Medications Ferrous Sulfate 325 Mg Tablet, 325 MG PO DAILY, (Reported) Ranitidine HCl 150 Mg Tablet, 150 MG PO BID, (Reported) Patient Home Medication List Home Medication List Reviewed: Yes OB - History Hx of Present Care: Yes Ultrasounds: Normal mid trimester US Obstetrical Complications: None Medical Complications: None Information Induced Hypertension: No Maternal Gestational Diabetes: No Hemorrhage: No Obstetrical History Hx : 3 Hx Para: 1 Hx # Term Pregnancies: 1 Hx # Pregnancies: 0 Number of Living Children: 1 Hx Termination: No Hx Total # of Abortions (Spona: 1 Hx Multiple Gestation: No Hx Ectopic : No Hx Stillbirth: No Hx Complication: No Hx Induced Hypertens: No Hx Maternal Gestational Diabet: No Hx Hemorrhage: No Delivery History Hx Dystocia: No Hx Forceps Assisted Delivery: No Hx Vacuum Extraction Assisted: No Hx Placenta Abnormality: No Hx Distress: No Hx Large For Gestational Age I: No Hx Small for Gestational Age I: No Hx Section: No Hx Vaginal Delivery Post C-Sec: No Hx Blood Disorders: No Adverse Rxn to Tranfusion: No (N/A) Patient Past Medical History PMHx: Depression GERD PSurgHx: cholecystectomy Social History/Family History HIV/AIDS: No Recent Infectious Disease Expo: No Sexually Transmitted Disease: No Alcohol Use: Denies Use Recreational Drug Use: No Smoking Cessation: Former smoker Immunizations Hepatitis A: No Hepatitis B: No Tetanus Booster (TDap): Less than 5yrs Date of Influenza Vaccine: Aug 23, 2013 Rubella: immune RPR/VDRL: Negative GBS Status: Negative HBsAG: Negative OB - Admission Exam Physical Exam Abdomen: Gravid Extremities: Normal Cervical Dilatation: 10cm Effacement: 100% Station: -3 Membranes: Intact OB - Assessment/Plan/Diagnosis Assessment Assessment: active labor Admission Dx Term labor at 40 weeks, complete cervical dilation on arrival. Admission Status: Inpatient Order (span 2 midnights) Reason for Inpatient Admission: Labor, delivery and course Plan Plan: Expectant Management NOAH GOSS MD Nov 22, 2018 03:27
[2018-11-22] MEDS ORDERED: PREN-142 PO (03:29)
[2018-11-22] MEDS ORDERED: RANI-515 PO (03:29)
[2018-11-22] MEDS ORDERED: FERR325T18 PO (03:29)
--- NOTE | 2018-11-22 03:37 | OB Labor & Delivery Record ---
Vag Delivery Note Vag Delivery Note Date of Delivery: 11/22/18 Preoperative Diagnosis: Meghan Hayward is a 28 /Para 3 / 1,Gestational Age (wks)40with 2 days Postoperative Diagnosis: Same Surgeon: NOAH GOSS Anesthesia: None Delivery Type: Spontaneous vaginal delivery Findings: Viable male , apgars 9/9, weight 8#15 Lacerations: second degree perineal, bilateral periurethral Intact placenta with 3 vessel cord. Nuchal cord x 1 delivered through, body cord x 1. No shoulder dystocia Estimated Blood Loss: 200 ml Complications: None Condition: Stable Description of Procedure: The patient is a G3 now P2012 who presented in active labor at full dilation. She was admitted and informed consent was obtained. Her labor course was remarkable for precipitous delivery. She was then set up for delivery. The 's head was delivered atraumatically in the ABBE position. Tight nuchal cord noted, delivered through. The shoulders and remainder of the infant's body were then delivered without difficulty. Upon delivery, the infant was vigorous and placed on maternal abdomen. After a delay, the cord was doubly clamped and cut and the infant was handed off to the pediatric staff. An intact placenta with 3-vessel cord delivered via Shafer and there was found to be minimal bleeding.~ Vigorous fundal massage was performed and the fundus was found to be firm. IV oxytocin was given. Examination of the vagina and perineum revealed a second degree perineal laceration repaired in the usual fashion with 3-0 rapide suture. Bilateral periurethral lacerations were hemostatic and not requiring repair. Following the repair, sponge, instrument and needle counts were correct. Mom and baby were both in stable condition in the labor suite. Vitals - Labs Labs Laboratory Tests 11/22/18 02:28: NOAH GOSS MD Nov 22, 2018 03:37
[2018-11-22 03:50] LABS: BASOPHILS % (AUTO) 0 % (0-10); EOSINOPHILS # (AUTO) 0.1 10^3/uL (0.0-0.3); EOSINOPHILS % (AUTO) 1 % (0-10); HEMATOCRIT 35 % (35-52); HEMOGLOBIN 11.2 G/DL (11.5-16.0); LYMPHOCYTES # (AUTO) 1.9 X 10^3 (1.0-4.0); LYMPHOCYTES % (AUTO) 14 % (12-44); MEAN CORPUSCULAR HEMOGLOBIN 27 PG (25-34); MEAN CORPUSCULAR HGB CONC 32 G/DL (32-36); MEAN CORPUSCULAR VOLUME 83 FL (80-99); MEAN PLATELET VOLUME 11.3 FL (7.4-10.4); MONOCYTES # (AUTO) 0.8 X 10^3 (0.0-1.0); MONOCYTES % (AUTO) 6 % (0-12); NEUTROPHILS # (AUTO) 11.4 X 10^3 (1.8-7.8); NEUTROPHILS % (AUTO) 80 % (42-75); PLATELET COUNT 185 10^3/uL (130-400); RED CELL DISTRIBUTION WIDTH 15.3 % (10.0-14.5); WHITE BLOOD COUNT 14.2 10^3/uL (4.3-11.0)
--- NOTE | 2018-11-22 04:07 | NUR ---
SANTO HERNANDEZ presented to unit via WC from ED, accompanied by STAFF, with c/o CTX. SANTO HERNANDEZ to bed R/T LEANING FROM W/C AND MOANING. EFHM and TOCO applied, VS taken SVE COMPLETED, SEE LABOR FLOWSHEET FOR FURTHER CARE DETIALS. Addendum: 11/22/18 at 0450 by LION GARCIA RN TIME FOR 020
[2018-11-22] MEDS ORDERED: BENZOCAINE/MENTHOL (DERMOPLAST) 56 ML CAN TP ONE (04:20)
[2018-11-22] MEDS ORDERED: WITCH HAZEL(TUCKS) 40 EA JAR ONE (04:20)
[2018-11-22] MEDS ORDERED: IBUPROFEN 600 MG (MOTRIN) TAB PO ONE (04:20)
--- NOTE | 2018-11-22 04:20 | NUR ---
PT UP TO BATHROOM, UNABLE TO VOID AT THIS TIME, GOWN PADS PERICARE CHANGED AND COMPLETED, PT STAND BY ASSIST AMBULATES TO ROOM 309, ORIENTED TO CALL SYSTEM INFORPACKET AND SURROUNDINGS, UNDERSTANDING VOICED. SEE EMAR.
[2018-11-22] MEDS: WITCH HAZEL(TUCKS) 40 EA JAR TOP PRN ×2 (04:27→16:20)
[2018-11-22] MEDS: IBUPROFEN 600 MG (MOTRIN) TAB PO SCH ×4 (04:27→22:11)
[2018-11-22] MEDS ORDERED: OXYTOCIN/NORMAL SALINE 500 ML IV SCH (04:42)
[2018-11-22] MEDS ORDERED: BENZOCAINE/MENTHOL (DERMOPLAST) 56 ML CAN TP PRN (04:45)
[2018-11-22] MEDS ORDERED: CATHETER FLUSH 10 ML SYR IV SCH ×2 (06:00)
[2018-11-22] MEDS ORDERED: PRENATAL VITAMIN 1 EA TAB PO SCH (07:00)
--- NOTE | 2018-11-22 08:00 | NUR ---
A.M. ASSESSMENT COMPLETED. VSS. SALINE LOCK LEAKING BLOOD. D/C'ED WITH TIP INTACT. SITE CLEAR.
[2018-11-22] MEDS ORDERED: FERROUS SULF 325 MG (IRON) TAB PO SCH (09:00)
--- NOTE | 2018-11-22 11:00 | NUR ---
SHOWERED WITHOUT PROBLEMS. MAIN COMPLAINT IS CRAMPING. WARM BLANKET TO ABDOMEN PRN. GIVING SCHEDULED MOTRIN.
--- NOTE | 2018-11-22 13:00 | NUR ---
HAS BEEN IN TO ASSIST MOM WITH FEEDINGS PRN. GOOD INTERACTION NOTED.
--- NOTE | 2018-11-22 16:30 | NUR ---
PT STATES SHE HAS HAD A BM. MORE TUCKS GIVEN PER REQUEST.
--- NOTE | 2018-11-22 18:30 | NUR ---
RESTING IN BED. S.O. AT BEDSIDE. CARING FOR INFANT IN ROOM.
--- NOTE | 2018-11-22 18:45 | NUR ---
STATES ORDERING STORK MEAL THIS EVENING.
[2018-11-23 04:26] VITALS: BP 116/66
[2018-11-23] MEDS: IBUPROFEN 600 MG (MOTRIN) TAB PO SCH (04:26)
[2018-11-23 06:31] LABS: BASOPHILS % (AUTO) 0 % (0-10); EOSINOPHILS # (AUTO) 0.1 10^3/uL (0.0-0.3); EOSINOPHILS % (AUTO) 1 % (0-10); HEMATOCRIT 31 % (35-52); LYMPHOCYTES # (AUTO) 2.4 X 10^3 (1.0-4.0); LYMPHOCYTES % (AUTO) 23 % (12-44); MEAN CORPUSCULAR HEMOGLOBIN 27 PG (25-34); MEAN CORPUSCULAR HGB CONC 32 G/DL (32-36); MEAN CORPUSCULAR VOLUME 84 FL (80-99); MONOCYTES # (AUTO) 0.7 X 10^3 (0.0-1.0); MONOCYTES % (AUTO) 7 % (0-12); NEUTROPHILS # (AUTO) 7.3 X 10^3 (1.8-7.8); NEUTROPHILS % (AUTO) 69 % (42-75); PLATELET COUNT 179 10^3/uL (130-400); RED CELL DISTRIBUTION WIDTH 15.9 % (10.0-14.5); WHITE BLOOD COUNT 10.6 10^3/uL (4.3-11.0)
[2018-11-23 08:50] VITALS: BP 121/83
--- NOTE | 2018-11-23 08:50 | NUR ---
initial shift assessment completed, see interventions for further. POC reviewed, states understanding.
[2018-11-23] MEDS ORDERED: IBUP-844 PO (09:09)
--- NOTE | 2018-11-23 09:11 | Discharge Summary ---
Diagnosis/Chief Complaint Date of Admission Nov 22, 2018 at 02:10 Date of Discharge Nov 23, 2018 Admission Diagnosis Admission Diagnosis [id number] at 40w2d SONIDO Discharge Diagnosis [id number] at 40w2d SONIDO s/p precipitous Discharge Summary-OBS Procedures None. Discharge Physical Examination Allergies: Coded Allergies: amoxicillin (Unverified Allergy, Unknown, 12/24/17) Vitals & I&Os Vital Sign - Last 12Hours Date Time Temp Pulse Resp B/P (MAP) Pulse Ox O2 Delivery O2 Flow Rate FiO2 11/23/18 04:26 98.0 86 18 116/66 (83) 97 Room Air General Appearance: Alert, Oriented X3, Cooperative Psych/Mental Status: Mood NL Hospital Course Routine course Labs Laboratory Tests 11/23/18 05:50: White Blood Count 10.6, Red Blood Count 3.68L, Hemoglobin 10.0L, Hematocrit 31L , Mean Corpuscular Volume 84, Mean Corpuscular Hemoglobin 27, Mean Corpuscular Hemoglobin Concent 32, Red Cell Distribution Width 15.9H, Platelet Count 179, Mean Platelet Volume 11.0H, Neutrophils (%) (Auto) 69, Lymphocytes (%) (Auto) 23 , Monocytes (%) (Auto) 7, Eosinophils (%) (Auto) 1, Basophils (%) (Auto) 0, Neutrophils # (Auto) 7.3, Lymphocytes # (Auto) 2.4, Monocytes # (Auto) 0.7, Eosinophils # (Auto) 0.1, Basophils # (Auto) 0.0 Discharge Instructions to patient/family Please see electronic discharge instructions given to patient. Discharge Medications Reviewed and agree with Discharge Medication list on patient's Discharge Instruction sheet Clinical Quality Measures DVT/VTE Risk/Contraindication: Risk Factor Score Per Nursin RFS Level Per Nursing on Admit: 1=Low/No VTE PPX Copy Copies To 1: NOAH GOSS MD, LINDA K DO Nov 23, 2018 09:11
--- NOTE | 2018-11-23 09:12 | Discharge Instructions ---
Discharge Inst-Women's Serv Depart Medications New, Converted or Re-Newed RX: Transmitted to Pharmacy ([facility]) New Medications: Ibuprofen (Ibu) 600 Mg Tablet 600 MG PO Q6H for Cramps, #90 TAB 0 Refills Continued Medications: Vit No.124/Iron/FA ( Vitamin Tablet) 1 Each Tablet 1 EACH PO, TAB Discontinued Medications: Ferrous Sulfate (Ferrous Sulfate) 325 Mg Tablet 325 MG PO DAILY, TAB Ranitidine HCl (Acid Second Shift Supervisor (RANITIDINE)) 150 Mg Tablet 150 MG PO BID, TAB Follow Up/Instructions Goal/Follow Up: Follow up with Dr. Carmona in 6wk Activity Activity: Activity as Tolerated Nothing Inside Vagina: No Douching, No [place], No Tampons Diet Discharge Diet: No Restrictions Symptoms to Report to : Pain Increased, Fever Over 101 Degrees F, Vaginal Bleeding Increase, Vaginal Discharge Foul, Questions/Concerns, Shortness of Breath For Any Problems or Questions: Contact Your Physician Copies To 1: NOAH CARMONA MD, LINDA K DO Nov 23, 2018 09:12
--- NOTE | 2018-11-23 11:56 | NUR ---
dismissal instructions given, verbalizes understanding. reviewed follow up appointment and dismissal medications. signature page signed, placed on chart.
--- NOTE | 2018-11-23 13:45 | NUR ---
dismissed to private vehicle with MICHOACANO Santana @ side. secured in rear facing car seat. pt stable with no sx's of distress noted.
== END 2018-11-23 13:45 | disposition home or self-care (01) | DRG 807 ==
LOC: LDRP 02:09 → WSo 02:09 → LDRP 02:10
PROVIDERS: ADMIT Family Medicine; ATTEND Family Medicine
PROC: 10E0XZZ Delivery of Products of Conception, External Approach (ICD-10-PCS; principal; 2018-11-22)
PROC: 0KQM0ZZ Repair Perineum Muscle, Open Approach (ICD-10-PCS; 2018-11-22)
DX: O62.3 Precipitate labor (principal); O69.81X0 Labor and delivery complicated by cord around neck, without compression, not applicable or unspecified; O69.82X0 Labor and delivery complicated by other cord entanglement, without compression, not applicable or unspecified; O70.1 Second degree perineal laceration during delivery; F32.9 Major depressive disorder, single episode, unspecified; O99.345 Other mental disorders complicating the puerperium; O99.63 Diseases of the digestive system complicating the puerperium; K21.9 Gastro-esophageal reflux disease without esophagitis; Z87.891 Personal history of nicotine dependence; Z88.1 Allergy status to other antibiotic agents; Z3A.40 40 weeks gestation of pregnancy; Z37.0 Single live birth
CPT/HCPCS: 36415; 85025; 86850; 86900; 86901; 99212